=== PATIENT | male | born 1940 | race Caucasian/White ===

== ENCOUNTER 2017-08-20 09:07 | Day surgery (SDC) | payer MEDICARE, BC ==
[~2017-08-20] VITALS: Ht 172.7 cm; Wt 73.6 kg
[2017-08-20] VITALS (9 sets, daily range): BP systolic 133–160; BP diastolic 91–110; PULSE 56–90; RESP 16–20; TEMP 97.6–98; O2SAT 95–99
[2017-08-20] MEDS ORDERED: LACTATED RINGER'S 1000 ML IV PRN (09:30)
[2017-08-20] MEDS ORDERED: SODIUM CHLORID 0.9% 500 ML IV PRN (09:30)
[2017-08-20] MEDS ORDERED: METOPROLOL TARTRATE 25 MG TAB PO PRN (09:30)
[2017-08-20] MEDS ORDERED: POVIDONE IODINE 5% (ANTISEPSIS KIT) 4 APPLICATIONS EACH NARE PRN (09:30)
[2017-08-20] MEDS ORDERED: LORazepam 1 MG TAB SL SCH (09:30)
[2017-08-20] MEDS: SODIUM CHLORID 0.9% 500 ML INJ 500 ML IV SCH (09:30)
[2017-08-20] MEDS ORDERED: INSULIN HUMAN REGULAR 1,000 UNITS/10 ML VIAL SQ PRN (09:30)
[2017-08-20] MEDS ORDERED: CHLORHEXIDINE GLUCONATE 2 % 1 PACK (2 CLOTHS) TOPICAL PRN (09:30)
[2017-08-20] MEDS ORDERED: METO25TA6 PO (09:51)
[2017-08-20] MEDS ORDERED: APIX5TAB PO (09:51)
[2017-08-20] MEDS ORDERED: POTA10TA2 PO (09:51)
[2017-08-20] MEDS ORDERED: TAMS0.4C4 PO (09:51)
[2017-08-20] MEDS ORDERED: ALLO100T PO (09:51)
[2017-08-20] MEDS ORDERED: DULE200A INH (09:51)
[2017-08-20] MEDS ORDERED: DILT-64 PO (09:51)
[2017-08-20] MEDS ORDERED: FURO1TAB62 PO (09:51)
[2017-08-20] MEDS ORDERED: LISI-515 PO (09:51)
[2017-08-20 10:04] LABS: AUTOMATED NEUTROPHIL # 5.5 TH/MM3 (1.8-7.7); BASOPHIL # 0.1 TH/MM3 (0-0.2); BASOPHIL % 0.8 % (0.0-2.0); EOSINOPHIL # 0.1 TH/MM3 (0-0.4); HEMO FLAGS DIFF FINAL; LYMPH % 15.7 % (9.0-44.0); LYMPHOCYTE # 1.1 TH/MM3 (1.0-4.8); MEAN CELL VOLUME 94.6 FL (80.0-100.0); MEAN CORPUSCULAR HEMOGLOBIN 31.2 PG (27.0-34.0); MONO % 6.7 % (0.0-8.0); NEUT % 75.8 % (16.0-70.0); PLATELET COUNT 163 TH/MM3 (150-450); RED BLOOD COUNT 4.76 MIL/MM3 (4.50-5.90); RED CELL DISTRIBUTION WIDTH 14.5 % (11.6-17.2); WHITE BLOOD COUNT 7.3 TH/MM3 (4.0-11.0)
[2017-08-20 10:13] LABS: APTT (PATIENT) 28.3 SEC (24.3-30.1); INTERNATIONAL NORMALIZED RATIO 1.1 RATIO; PROTHROMBIN TIME - PATIENT 12.2 SEC (9.8-11.6)
[2017-08-20 10:29] LABS: BICARBONATE 27.3 MEQ/L (21.0-32.0); POTASSIUM 4.2 MEQ/L (3.5-5.1)
[2017-08-20] MEDS ORDERED: HEPARIN-NS/PF INJ 2,000 ML ONE (10:32)
[2017-08-20] MEDS ORDERED: PROTAMINE SULFATE 50 MG/5 ML VIAL ONE ×2 (10:33→13:38)
[2017-08-20] MEDS ORDERED: HEPARIN SODIUM - IV 10,000 UNITS/10 ML VIAL ONE (10:33)
[2017-08-20] MEDS ORDERED: HEPARIN-D5W 25,000 U/250 ML 250 ML ONE (10:33)
[2017-08-20] MEDS ORDERED: LEVOFLOXACIN 500 MG PREMIX INJ 100 ML IV ONE (10:33)
[2017-08-20] MEDS ORDERED: FUROSEMIDE 40 MG/4 ML VIAL ONE (10:33)
[2017-08-20] MEDS ORDERED: ISOPROTERENOL HCL 1 MG/5 ML AMP ONE (10:36)
--- NOTE | 2017-08-20 13:48 | CATHPROC ---
[employer] HIS Report Study Information Study Number Scheduled Start Study Start [id number] 08/20/2017 Aug 20 2017 9:41AM Referring Institution Admit Source Facility Department 1 Other [facility] - [employer] Installer Physician and Clinical Staff Initial Shan Johnson Oral Surgery Physician Iliana Thorpe,DIRECTOR INTERNAL CONTROL Other Anesthesia, DIRECTOR OF BANDS Other Manas Cortez,RT(R) Recorder Gina Talley BSREvelyn Scrub Monserrat Toussaint,RT(R) TECH2 Procedures Performed Procedure Location (Site) Vessel Name Ablation Procedure Cardioversion ICE CATHETER INSERT RA Atruim Equipment Time Prosthodontist/Owner Description Size Mfg Part Number Used/Scraped NEEDLE, TRANSSEPTAL NRG 98 11:16 [facility]-[id number] Used C1 BIOSTrustlook [id number] 11:17 CATHETER, ACUNAV FR10 ICE FR 10 Used INC. *[id number] [employer]/ EP 11:16 KIT, TRANSDUCER / AFIB [id number] Used PACER [id number] 11:16 [facility] CATHETER, JSN, QUAD BUNDLE FR 5 *[id number] Used BUNDLE [id number] 11:16 [facility] [place] CATHETER, JSN, QUAD BUNDLE FR 5 *[id number] Used BUNDLE [id number] SET, COOL POINT TUBING 11:16 [facility] *[id number] Used BUNDLE BUNDLE COVER, TRANSDUCER CABLE 11:16 [employer] [id number] Used ACUNAV 11:16 CORDIS/PACER SHEATH, FR10 RISHI 11CM FR 10 [id number] Used 11:16 CORDIS/PACER SHEATH, FR9 RISHI 11CM FR 9 [id number] Used [id number] 11:16 [employer] PACK, CCL CUSTOM * Used *[id number] 11:16 MEDLINE PACER MANZANARES, LIMB * 2530 *[id number] Used [id number] 11:16 [employer] MEDICAL SHEATH, FR4.5 PRELUDE 11CM FR 4.5 Used [id number] 11:16 NAMIC TUBING, HIGH PRESSURE 48" 48" Used *[id number] 11:16 NAMIC TUBING, HIGH PRESSURE 48" 48" Used *[id number] 11:16 [employer] BLANKET,WARM AIR CCL * Used *[id number] CATHETER, TACTICATH ABLAT [id number] 11:51 [facility] [employer] Used 65 *[id number] 11:17 [facility] MED[facility] CATHETER, FR7 OPTIMA SPIRAL FR7 41604 *[id number] Used 11:16 [facility] ELECTRODE KIT, SHIVANI X SURFACE * [id number] Used SHEATH, EPS, FR10 FAST CATH 11:17 [facility] FR 10 TRIO [id number] Used TRIO [id number] 11:16 [facility] SHEATH, EPS, FR6 FAST CATH FR 6 Used *[id number] 11:16 [facility] SHEATH, EPS, FR7 FAST CATH FR 7 [id number] Used [id number] 11:16 [facility] MEDICAL SHEATH, EPS, FR8 FAST CATH FR 8 Used *[id number] SHEATH, FR8.5 STEERABLE SM 11:17 [facility] 71CM [id number] Used 71CM [facility] PAD, ELECTROSURGICAL 11:16 * [id number] *[id number] Used SURGICAL GROUNDING (BLUE) History: Current Medications Medication Dosage/Unit Route Frequency Last Date/Time Taken ELIQUIS Beta Joanne Statins (any) History: Allergies Allergy Reaction Penicillin History: Risk Factors Hypertension Dyslipidemia Yes Yes Chronic Lung Disease History: Symptoms/Diagnosis Selection Items Palpitations SOB Labs Hgb (g/dl) Hct (%) RBC (MIL/MM3) WBC (l/cumm) Platelets (thousands) 11.60-17.00 35.00-51.00 4.00-5.90 4.00-11.00 150.00-450.00 14.8 45 4.7 7.3 163 Glucose (mg/dl) BUN (mg/dl) Creatinine (mg/dl) BUN:Creatinine (1:x) 74.00-106.00 7.00-18.00 0.50-1.30 10.00-20.00 77 28 1.7 16.5 Na (meq/l) K (meq/l) Cl (meq/l) CO2 (mmol/L) Ca (mg/dl) 136.00-145.00 3.50-5.10 98.00-107.00 21.00-32.00 8.50-10.10 139 4.2 107 27.3 9.3 INR (PTT:PT) 0.90-1.10 1.1 Medication Medication Total Dose (Bolus/Oral) Medication Total Dosage/Unit 1% XYLOCAINE 40 mL HEPARIN 19078 units PROTAMINE 70 mg Medications (Bolus/Oral) Medication Time Given Dosage/Unit Administered By Reason 1% XYLOCAINE 08/20/2017 11:22:57 AM 20 mL Shan Shin For pain 20 mL 1% XYLOCAINE given in lab by Shan Shin in Left Groin via Subcutaneous. Ordered by Julio Shin. Reason: For pain. 1% XYLOCAINE 08/20/2017 11:25:10 AM 20 mL Shan Shin For pain 20 mL 1% XYLOCAINE given in lab by Shan Shin in Right Groin via Subcutaneous. Ordered by Sophie Shin. Reason: For pain. HEPARIN 08/20/2017 11:37:09 AM 8000 units Shan Shin As per physicians v erbal order 8000 units HEPARIN given in lab by Shan Shin in Right Antecubital via Peripheral IV. Ordered by Shan Martínez. Reason: As per physicians verbal order. HEPARIN 08/20/2017 11:47:26 AM 4000 units Anesthesia, DIRECTOR OF BANDS As per physicians verbal order 4000 units HEPARIN given in lab by Anesthesia, DIRECTOR OF BANDS in Right Antecubital via Peripheral IV. Ordered Shan Hernandez. Reason: As per physicians verbal order. HEPARIN 08/20/2017 11:56:41 AM 3000 units Anesthesia, DIRECTOR OF BANDS As per physicians verbal order 3000 units HEPARIN given in lab by Anesthesia, DIRECTOR OF BANDS in Right Antecubital via Peripheral IV. Ordered Shan Hernandez. Reason: As per physicians verbal order. HEPARIN 08/20/2017 12:08:55 PM 1000 units Anesthesia, DIRECTOR OF BANDS As per physicians verbal order 1000 units HEPARIN given in lab by Anesthesia, DIRECTOR OF BANDS in Right Antecubital via Peripheral IV. Ordered Shan Hernandez. Reason: As per physicians verbal order. HEPARIN 08/20/2017 1:05:18 PM 3000 units Anesthesia, DIRECTOR OF BANDS As per physicians verbal order 3000 units HEPARIN given in lab by Anesthesia, DIRECTOR OF BANDS in Right Antecubital via Peripheral IV. Ordered Shan Hernandez. Reason: As per physicians verbal order. PROTAMINE 08/20/2017 1:27:04 PM 40 mg Anesthesia, DIRECTOR OF BANDS As per physicians ve rbal order 40 mg PROTAMINE given in lab by Anesthesia, DIRECTOR OF BANDS in Right Antecubital via Peripheral IV. Ordered by Shan Martínez. Reason: As per physicians verbal order. PROTAMINE 08/20/2017 1:40:06 PM 30 mg Anesthesia, DIRECTOR OF BANDS As per physicians ve rbal order 30 mg PROTAMINE given in lab by Anesthesia, DIRECTOR OF BANDS in Right Antecubital via Peripheral IV. Ordered by Shan Martínez. Reason: As per physicians verbal order. Medication (Drip) Medication Time Given Dosage/Unit Concentration/Unit Diluent (ml) Solution HEPARIN DRIP 08/20/2017 11:57:43 AM 1000 units/hr 60138 units 250 D5W 1000 units/hr HEPARIN DRIP given in lab by Anesthesia, DIRECTOR OF BANDS via Peripheral IV. Pump/Drip Flow = 10 ml /hr using [place] [address] units in 250 ml. Ordered by Shan Shin. Reason: As per physicians verbal order. ISUPREL 08/20/2017 1:11:23 PM 10 mcg/min 1 mg 250 NaCl .9 10 mcg/min ISUPREL given in lab by Anesthesia, DIRECTOR OF BANDS in Right Antecubital via Peripheral IV. Pump/Drip Flow = 150 ml/hr using NaCl .9 with a concentration of 1 mg in 250 ml. Ordered by Shan Shin. Reason: As per physicians verbal order. IV Solutions 08/20/2017 10:36:19 AM 0 mL (IV) NaCl .9 IV Solutions given in lab by Gina Talley BSRN in Left Antecubital via Peripheral IV. Pump/Drip Flow = 50 ml/hr using NaCl .9. Ordered by Shan Shin. Reason: As per physicians verbal order. IV Solutions 08/20/2017 10:36:55 AM 0 mL (IV) NaCl .9 IV Solutions given in lab by Gina Talley BSRN in Left Antecubital via Peripheral IV. Pump/Drip Flow = 50 ml/hr using NaCl .9. Ordered by Shan Shin. Reason: As per physicians verbal order. LEVAQUIN 08/20/2017 10:40:00 AM 100 mL/hr 500 100 NaCl .9 100 mL/hr LEVAQUIN given in lab by Gina Talley BSRN in Right Antecubital via Peripheral IV. Pum p/Drip Flow = 0 ml/hr using NaCl .9 with a concentration of 500 in 100 ml. Ordered by Kip, Hanscy. Reason: As per physicians verbal order. Initial Case Assessment Cardiovascular HR NIBP 99 154/111 Edema Present Skin color Skin None Normal Warm Dry Neurological State Oriented to time-place- Alert Moves all extremities person Respiration - General Respiration Rate SpO2 (%) (B/min) 18 100 Final Case Assessment Cardiovascular HR NIBP Chest Pain 82 117/67 0 Edema Present Skin color Skin None Normal Warm Dry Neurological State Oriented to time-place- Alert Moves all extremities person Respiration - General Respiration Rate SpO2 (%) (B/min) 20 97 Chronological Log Time Study Chronological Log 10:22:27 Patient arrived via Bed. 10:22:30 Patient Name, D.O.B, / Armband Verified By R.N. 10:22:32 Consent signed by the physician and the patient and verified by the [employer] staff. 10:22:34 Pre-op and post- op instructions given; patient acknowledges understanding of instructions. 10:22:37 Verbal Stimulation=2 Physical Stimulation=2 Airway=2 Respiration=2 TOTAL=10. (0=absent, 1=l imited, 2=present) 10:22:49 Anesthesia at bedside. Assumes care of patient. Ford DIRECTOR OF BANDS 10:23:08 Presedation assessment performed by [employer] F[employer] Installer RN. 10:23:11 Immediate Presedation assesment performed by physician. 10:23:13 Patient has been NPO for More than 6Hrs. 10:23:15 Skin Breakdown- none 10:23:23 Patient Warmer Placed on the Table. 10:23:28 Disposable Defibrillator Pads Placed On Patient. 10:23:31 Francis Prominences Protected 10:29:28 A # 20 IV was noted in the Antecubital (left). Grade = ~GRADE~ 10:29:28 A # 20 IV was noted in the Antecubital (right). Grade = ~GRADE~ 10:29:30 History and physical on the chart or being dictated. Assessment: Initial Case, HR=99 BPM, EWLZ=998/111 mmhg, Edema=None, Color=Normal, Skin = Warm, Dry 10:35:33 Neurological: State=Alert, Ox3, FERNANDES Respiration: Resp=18 B/min, UfL9=689 % 10:36:02 Table restraints applied according to hospital policy 10:36:06 Right groin prepped with 2% chlorhexidine, and with a 3 min. waiting time. 10:36:09 Left groin prepped with 2% chlorhexidine, and with a 3 min. waiting time. IV Solutions given in lab by Gina Talley BSRN in Left Antecubital via Peripheral IV. Pump /Drip Flow = 50 ml/hr 10:36:19 using NaCl .9. Ordered by Shan Shin. Reason: As per physicians verbal order. IV Solutions given in lab by Gina Talley BSRN in Left Antecubital via Peripheral IV. Pump /Drip Flow = 50 ml/hr 10:36:55 using NaCl .9. Ordered by Shan Shin. Reason: As per physicians verbal order. 100 mL/hr LEVAQUIN given in lab by Gina Talley BSRN in Right Antecubital via Peripheral I V. Pump/Drip Flow = 10:40:00 0 ml/hr using NaCl .9 with a concentration of 500 in 100 ml. Ordered by Shan Shin. Reas on: As per physicians verbal order. 10:48:45 14 fr lambert inserted w/o difficulty by MR. Clear yellow urine obtained. 10:59:09 Reference ECG taken Time Out. Correct patient, procedure, procedure equipment, site and side verified with physicia n present. Time 11:18:30 concurred by MD, individual staff and DIRECTOR OF BANDS. Time Out #2 - Consents verified, patient in correct position, all results are labled and displa yed, safety precautions 11:18:45 taken, antibiotics administered. Time out concurred by MD, individual staff and DIRECTOR OF BANDS in procedu re 11:18:59 Case Start 11:19:36 LASHAY begun at bedside. 11:22:31 LASHAY completed. 20 mL 1% XYLOCAINE given in lab by Shan Shin in Left Groin via Subcutaneous. Ordered by Shan Fisher. 11:22:57 Reason: For pain. 11:23:17 Vascular access was obtained in the Fem Vein (left). 11:23:25 Vascular access was obtained in the Fem Vein (left). 11:23:26 Vascular access was obtained in the Fem Vein (left). 11:23:33 Vascular access was obtained in the Fem Art (left). 11:23:51 A SHEATH, EPS, FR6 FAST CATH FR 6 was advanced into the Fem Vein (left) using the Percutane ous technique. 11:24:09 A SHEATH, EPS, FR7 FAST CATH FR 7 was advanced into the Fem Vein (left) using the Percutane ous technique. 11:24:20 A SHEATH, FR10 RISHI 11CM FR 10 was advanced into the Fem Vein (left) using the Percutaneo us technique. 11:24:36 A SHEATH, FR4.5 PRELUDE 11CM FR 4.5 was advanced into the Fem Art (left) using the Percutan eous technique. 20 mL 1% XYLOCAINE given in lab by Shan Shin in Right Groin via Subcutaneous. Ordered by Shan Wei. 11:25:10 Reason: For pain. 11:25:23 Vascular access was obtained in the Fem Vein (right). 11:25:32 A SHEATH, EPS, FR8 FAST CATH FR 8 was advanced into the Fem Vein (right) using the Percutan eous technique. A CATHETER, JSN, QUAD BUNDLE FR 5 was advanced vis Fem Vein (left) and placed in the HIS. Place ment was 11:25:47 visually confirmed under fluoroscopy. A CATHETER, JSN, QUAD BUNDLE FR 5 was advanced vis Fem Vein (left) and placed in the CS. Placem ent was visually 11:26:09 confirmed under fluoroscopy. 11:31:44 CATHETER, ACUNAV FR10 ICE FR 10 Was Postioned. A SHEATH, FR8.5 STEERABLE SM 71CM 71CM was exchanged in the Fem Vein (right). This was necessar y in order for 11:36:34 catheter support. 8000 units HEPARIN given in lab by Shan Shin in Right Antecubital via Peripheral IV. Ordere d by Shan Shin. 11:37:09 Reason: As per physicians verbal order. 11:37:34 Boswell needle inserted. 11:38:39 Transseptal. 11:39:03 Boswell needle removed. A CATHETER, FR7 OPTIMA SPIRAL FR7 was advanced vis Fem Vein (right) and placed in the LA. Place ment was 11:40:28 visually confirmed under fluoroscopy. 11:42:10 Activated Clotting Time Drawn 11:43:55 Mapping in progress. 11:46:55 ACT (Normal Range 90-180) = 274 4000 units HEPARIN given in lab by Anesthesia, DIRECTOR OF BANDS in Right Antecubital via Peripheral IV. Ord ered by Shan Shin. 11:47:26 Reason: As per physicians verbal order. 11:49:09 Mapping completed. [place] catheter removed. A CATHETER, TACTICATH ABLAT 65 was advanced vis Fem Vein (right) and placed in the LA. Placemen t was visually 11:50:40 confirmed under fluoroscopy. 11:51:50 Activated Clotting Time Drawn 11:56:16 ACT (Normal Range 90-180) = 296 3000 units HEPARIN given in lab by Anesthesia, DIRECTOR OF BANDS in Right Antecubital via Peripheral IV. Ord ered by Shan Shin. 11:56:41 Reason: As per physicians verbal order. 11:57:26 Ablation in progress. 1000 units/hr HEPARIN DRIP given in lab by Anesthesia, DIRECTOR OF BANDS via Peripheral IV. Pump/Drip Flow = 10 ml/hr using 11:57:43 D5[place] [address] units in 250 ml. Ordered by Shan Shin. Reason: As per nicci portillo verbal order. 12:01:43 Activated Clotting Time Drawn 12:08:45 ACT (Normal Range 90-180) = 341 1000 units HEPARIN given in lab by Anesthesia, DIRECTOR OF BANDS in Right Antecubital via Peripheral IV. Ord ered by Shan Shin. 12:08:55 Reason: As per physicians verbal order. 12:14:02 Activated Clotting Time Drawn 12:21:10 ACT (Normal Range 90-180) = 333 12:30:49 Activated Clotting Time Drawn 12:37:56 ACT (Normal Range 90-180) = 354 12:53:08 Abl Catheter was removed A CATHETER, FR7 OPTIMA SPIRAL FR7 was advanced vis Fem Vein (right) and placed in the LA. Place ment was 12:53:21 visually confirmed under fluoroscopy. 12:55:26 ECG rhythm of AF noted. Patient cardioverted at 200 joules. Success synchronized 12:57:45 Activated Clotting Time Drawn 12:57:53 [place] catheter removed. A CATHETER, TACTICATH ABLAT 65 was advanced vis Fem Vein (right) and placed in the LA. Placemen t was visually 12:58:06 confirmed under fluoroscopy. 12:58:23 Ablation continues. 13:04:08 ACT (Normal Range 90-180) = 315 3000 units HEPARIN given in lab by Anesthesia, DIRECTOR OF BANDS in Right Antecubital via Peripheral IV. Ord ered by Shan Shin. 13:05:18 Reason: As per physicians verbal order. 13:07:00 Ablation completed. 13:08:58 ECG rhythm of AF noted. Patient cardioverted at 200 joules. Success synchronized 13:10:35 Activated Clotting Time Drawn 10 mcg/min ISUPREL given in lab by Anesthesia, DIRECTOR OF BANDS in Right Antecubital via Peripheral IV. Pum p/Drip Flow = 150 13:11:23 ml/hr using NaCl .9 with a concentration of 1 mg in 250 ml. Ordered by Shan Shin. Reaso n: As per physicians verbal order. 13:17:20 ACT (Normal Range 90-180) = 423 13:18:27 Heparin gtt turned off. 13:23:22 Isuprel gtt turned off. 13:24:16 Ablation completed. 13:24:52 Ablation procedure performed: AFIB. 13:25:02 EP Procedure was performed. 13:25:13 Catheter(s) removed without difficulty A SHEATH, FR9 RISHI 11CM FR 9 was exchanged in the Fem Vein (right). This was necessary in or joana to achieve 13:26:41 vascular hemostasis. 40 mg PROTAMINE given in lab by Anesthesia, DIRECTOR OF BANDS in Right Antecubital via Peripheral IV. Order ed by Shan Shin. 13:27:04 Reason: As per physicians verbal order. 13:27:[address] and will be attached to NS infusing at kvo rate. 13:28:34 PACU called. Spoke to Afsaneh. Assessment: Final Case, HR=82 BPM, FUHT=051/67 mmhg, Chest Pain=0, Edema=None, Color=Normal, S kin = Warm, Dry 13:29:10 Neurological: State=Alert, Ox3, FERNANDES Respiration: Resp=20 B/min, SpO2=97 % 13:29:36 Sterile dressings applied to sites 13:29:50 No case complications noted. 13:29:52 Cine recording checked. 13:29:56 Bedside Report will be given. 13:29:59 Defibrillator and ground pads removed. Skin intact. 13:34:24 Activated Clotting Time Drawn 13:39:09 ACT (Normal Range 90-180) = 266 13:40:00 Case End 30 mg PROTAMINE given in lab by Anesthesia, DIRECTOR OF BANDS in Right Antecubital via Peripheral IV. Order ed by Shan Shin. 13:40:06 Reason: As per physicians verbal order. 13:42:26 Activated Clotting Time Drawn 13:46:51 ACT (Normal Range 90-180) = 151 13:47:19 Sheaths will be pulled in PACU. 13:55:00 Patient moved to stretcher and transported to PACU in stable condition. End Study - Contrast Media Used In Study Contrast Total Opened (mL) Total Used (mL) Total Wasted (mL) Unspecified 0 0 0 End Study - Maximum Contrast Load Max Contrast Load (mL) 216.4 End Study - Radiation Exposure Fluoro Time (minutes) 2.0 End Study - Patient Disposition Complications Transferred To Interventional Outcome No Telemetry Bed successful
[2017-08-20] MEDS ORDERED: oxyCODONE/ACETAMINOPHEN 5 MG/325 MG TAB PO PRN ×2 (14:00)
[2017-08-20] MEDS ORDERED: ONDANSETRON HCL 4 MG/2 ML VIAL IV PUSH PRN (14:00)
[2017-08-20] MEDS ORDERED: LORazepam 2 MG/ML VIAL IV PUSH PRN (14:00)
[2017-08-20] MEDS ORDERED: ATROPINE SULFATE 1 MG/ML VIAL IV PUSH PRN (14:00)
[2017-08-20] MEDS ORDERED: SODIUM CHLOR 0.9% 250 ML INJ 250 ML IV PRN (14:00)
[2017-08-20] MEDS ORDERED: METOCLOPRAMIDE HCL 10 MG/2 ML VIAL IV PUSH PRN (14:00)
[2017-08-20] MEDS ORDERED: LIDOCAINE HCL 1% 50 ML VIAL INFIL PRN (14:00)
[2017-08-20] MEDS ORDERED: BACITRACIN OINT 0.9 GM PKT TOP ONE (14:00)
[2017-08-20] MEDS ORDERED: DO NOT ADM ANY ANTICOAGULANT DRUGS PRN (14:05)
[2017-08-20] MEDS ORDERED: NEOSTIGMINE 3 MG/3 ML SYR IV ONE (14:21)
[2017-08-20] MEDS ORDERED: PHENYLEPH/NS 1000 MCG/10 ML SYR IV ONE (14:21)
[2017-08-20] MEDS ORDERED: ROCURONIUM INJ 50 MG/5 ML SYRINGE IV PUSH ONE (14:21)
[2017-08-20] MEDS ORDERED: GLYCOPYRROLATE 1 MG/5 ML SYRINGE IV PUSH ONE (14:21)
[2017-08-20] MEDS ORDERED: PROPOFOL 200 MG/20 ML AMP IV ONE (14:21)
[2017-08-20] MEDS ORDERED: ONDANSETRON HCL 4 MG/2 ML VIAL IV PUSH ONE (14:21)
[2017-08-20] MEDS ORDERED: LIDOCAINE HCL 1% PF 5 ML AMPULE OTHER ONE (14:21)
--- NOTE | 2017-08-20 14:21 | PD.CARD ---
Atrial Fibrillation Ablation PROCEDURE DATE: Aug 20, 2017 PROCEDURES PERFORMED: 1. Electrophysiology study on Isuprel infusion 2. CS cannulation 3. 3-D mapping 4. Transseptal approach 5. Right and left heart catheterization 6. Intracardiac echo 7. Radiofrequency ablation of atrial fibrillation 8. Pulmonary vein isolation 9. Posterior wall ablation 10. Mitral valve isolation 11. Mitral line creation 12. Left atrial tachycardia ablation 13. Roof line creation 14. Floor line creation 15. Anterior wall. ablation 16. Cardioversion INDICATIONS FOR THE PROCEDURE Mr. Fong is a 77-year-old male with atrial fibrillation, very symptomatic , on anticoagulation, admitted for electrophysiology study and ablation. The risks, the nature and the benefits of the procedure were clearly stated to him. The risks include pneumothorax, cardiac perforation, stroke, need for open heart surgery and even . The patient understood and agreed to proceed. DESCRIPTION OF THE PROCEDURE IN DETAIL As written informed consent was obtained prior to esophageal echocardiogram, the patient was kept on the table where he was prepped and draped in the usual sterile fashion. Conscious sedation was initiated and maintained throughout the procedure by the anesthesiologist. Once sedation was verified, the right and left inguinal areas were anesthetized with 2% Xylocaine. Using modified Seldinger technique, the left femoral vein was cannulated on three occasions, three guidewires were advanced. Over the wire a 6, 7 and a 10-Tristanian Hemaquet were advanced. Then the left femoral artery was cannulated on one occasion, one guidewire was advanced. Over the wire a 4-Tristanian Hemaquet was advanced. Then the right femoral vein was cannulated on one occasion, one guidewire was advanced. Over the wire a 8-Tristanian Hemaquet was advanced. Then under fluoroscopic guidance through the 6 and 7-Tristanian Hemaquet, two 5-Tristanian Zaida curved quadripolar electrophysiology catheters were advanced and placed around the His as well as coronary sinus. Basic interval was measured. The patient was in atrial fibrillation. Through the 10-Tristanian Hemaquet, a CordAyondoter AcuNav intracardiac echo catheter was advanced and placed at the right atrium. Multiple view was obtained. There is no pericardial effusion, pulmonary vein was seen, atrial septal was visualized. Then the 8-Tristanian Hemaquet in the right femoral vein was exchanged for Agilis transseptal sheath that was placed all the way to the superior vena cava. Through the sheath a Olivia needle was advanced, then the sheath, the dilator and the needle were progressed until foci engaged. Once engaged, the needle was advanced. RF was delivered for 2 seconds. I was able to cross into the left atrium. Once the needle crossed, the dilator was advanced. Once the dilator crossed, the sheath was advanced. Once the sheath crossed, the dilator and the needle were removed. At this point I did flush the system and fluid movement was seen in the left atrium the indicates the sheath is in good position. The patient already received 10,000 units of heparin. The goal is to keep an ACT around 350 during ablation. Then through the sheath a [facility]. Alex 20 pulse circumferential catheter was advanced. Using [employer] endocardial solution mapping system, a two-dimensional configuration of the left atrium was obtained. Points were taken at the left superior and inferior veins, right superior and inferior veins, mitral valve, and appendages. Then through the sheath a St. Alex TactiCath 65cm 3.5mm irrigated tipped mapping and radiofrequency ablation catheter was advanced. Esophageal probe was placed temperature monitoring during ablation. When it increased to 0.5 degrees Celsius above baseline, I moved to a different area of the atrium. First I did isolate the left superior and inferior vein. I did make a big [place] around the veins. Posterior was ablated. Then a roof line was created, a floor line was created, a mitral line was isolated, then the mitral valve was isolated. At that point the patient was in left atrial tachycardia. I did create a line from the floor to the roof area, passing by the left atrial appendage. Then the right superior and inferior veins were isolated. I did remap the atrium. There is no significant signal in the atrium. At this point I decided to proceed with cardioversion. A 200 sync biphasic joule was delivered that converted the patient into sinus rhythm.patient back into left atrial tachycardia. I did proceed with anterior floor ablation. Then coronary sinus was isolated. I did cardioverted again the patient into sinus rhythm. At that point I did advance the circumferential catheter again into the vein. There was no signal into the vein, pacing from the vein showed no conduction to the atrium. Isuprel infusion was initiated at 10 mcg for over 10 minutes. No tachyarrhythmia was induced, post Isuprel no tachyarrhythmia was induced. At that point the procedure was complete. All catheters were removed, atrial septal sheath was exchanged for 9-Tristanian Hemaquet, intracardiac echo showed no pericardial effusion. There is still good flow in the pulmonary vein. The patient is going to be transferred to the recovery room. No incident report. The patient tolerated the procedure. Blood loss was minimal. FINDINGS 1. Electrocardiogram: At baseline the patient was in atrial fibrillation, post procedure the patient was in sinus rhythm. 2. Basic interval: Base cycle length was around 530. Post ablation she was around 140 milliseconds. 3. Tachyarrhythmia: Atrial fibrillation was mapped and ablated. Atrial tachycardia was ablated. The ablation was successful. CONCLUSION Successful electrophysiology study, mapping, radiofrequency ablation of atrial fibrillation, left atrial tachycardia, pulmonary vein isolation, posterior ablation, mitral valve isolation, mitral line creation, roof line creation, floor line creation, left atrial tachycardia, coronary sinus isolation and cardioversion. COMMENTS AND RECOMMENDATIONS The patient is going to be transferred to the telemetry unit. Will be observed and when stable can be discharged home. Shan Shin MD Aug 20, 2017 14:21
[2017-08-20] MEDS ORDERED: TAMSULOSIN HCL 0.4 MG CAP PO SCH (21:00)
[2017-08-20] MEDS ORDERED: NON-FORMULARY DRUG (Mometasone-Formoterol 120 Act Inh (Dulera 120 Act Inh) 2 PUFF) INH SCH (21:00)
[2017-08-20] MEDS: APIXABAN 5 MG TABLET PO SCH (21:17)
[2017-08-21] VITALS (11 sets, daily range): BP systolic 133–139; BP diastolic 98–101; PULSE 62–91; RESP 18–20; TEMP 98.2; O2SAT 99–100
[2017-08-21] MEDS: SODIUM CHLORID 0.9% 500 ML INJ 500 ML IV SCH (02:10)
[2017-08-21 06:31] LABS: APTT (PATIENT) 28.8 SEC (24.3-30.1); INTERNATIONAL NORMALIZED RATIO 1.2 RATIO
--- NOTE | 2017-08-21 07:59 | PD.CARD.PN ---
Subjective Subjective Remarks Feels better. Objective Medications Current Medications Medications (Trade) Dose Ordered Sig/Eunice Route Start Time Stop Time Status Last Admin Lactated Ringer's 1,000 ml @ 30 mls/hr Q24H PRN IV 08/20/17 09:30 08/23/17 09:29 Sodium Chloride 500 ml @ 30 mls/hr [id number] PRN IV 08/20/17 09:30 08/23/17 09:29 (Lopressor) 25 mg [employer] PRN PO 08/20/17 09:30 08/23/17 09:29 (Betadine 5% Antisepsis Kit) 1 applic [facility] PRN EACH NARE 08/20/17 09:30 08/23/17 09:29 (Chlorhexidine 2% Cloth) 3 pack [facility] PRN TOPICAL 08/20/17 09:30 08/23/17 09:29 (NovoLIN R INJ) See Protocol Table ... [facility] PRN SQ 08/20/17 09:30 08/23/17 09:29 Sodium Chloride 500 ml @ 30 mls/hr [id number] IV 08/20/17 09:30 (Ativan) 1 mg [employer] SL 08/20/17 09:30 08/23/17 09:29 (Percocet 5-325 Mg) 1 tab Q4H PRN PO 08/20/17 14:00 (Percocet 5-325 Mg) 2 tab Q4H PRN PO 08/20/17 14:00 (Ativan Inj) 0.5 mg UNSCH PRN IV PUSH 08/20/17 14:00 08/21/17 13:59 (Atropine Inj) 0.5 mg UNSCH PRN IV PUSH 08/20/17 14:00 Sodium Chloride 250 ml @ 500 mls/hr ONCE PRN IV 08/20/17 14:00 08/21/17 13:59 (Reglan Inj) 5 mg Q4H PRN IV PUSH 08/20/17 14:00 (Zofran Inj) 4 mg Q4H PRN IV PUSH 08/20/17 14:00 (Xylocaine 1% Inj (50 ml)) 10 ml UNSCH PRN INFIL 08/20/17 14:00 08/21/17 13:59 (Zyloprim) 100 mg DAILY PO 08/21/17 09:00 (Eliquis) 5 mg BID PO 08/20/17 21:00 08/20/17 21:17 (Cardizem Cd) 240 mg DAILY PO 08/21/17 09:00 (Lasix) 20 mg DAILY PO 08/21/17 09:00 (Prinivil) 20 mg DAILY PO 08/21/17 09:00 (KCl) 10 meq DAILY PO 08/21/17 09:00 (Flomax) 0.4 mg HS PO 08/20/17 21:00 08/20/17 21:16 Non-Formulary Medication 2 puff BID INH 08/20/17 21:00 Miscellaneous Information ALL NURSING DEPARTME... UNSCH PRN .XX 08/20/17 14:05 08/21/17 14:04 Vital Signs / I&O Vital Signs Date Time Temp Pulse Resp B/P (MAP) Pulse Ox O2 Delivery O2 Flow Rate FiO2 08/21/17 06:00 79 08/21/17 05:03 91 08/21/17 04:00 87 08/21/17 03:00 98.2 79 18 133/98 (110) 100 08/21/17 03:00 74 08/21/17 02:00 72 08/21/17 01:00 71 08/21/17 00:00 73 08/20/17 23:00 58 08/20/17 23:00 98.0 74 16 133/99 (110) 95 08/20/17 22:00 56 08/20/17 21:00 60 08/20/17 20:00 58 08/20/17 19:00 97.7 57 16 134/91 (105) 95 08/20/17 19:00 58 08/20/17 18:00 62 08/20/17 17:00 60 08/20/17 16:30 97.6 61 20 135/96 (109) 99 08/20/17 16:30 60 08/20/17 16:10 97.5 61 15 125/85 (98) 99 Nasal Cannula 3 08/20/17 16:00 60 17 128/77 (94) 99 Nasal Cannula 3 08/20/17 15:30 59 15 130/87 (101) 99 Nasal Cannula 3 08/20/17 15:15 59 16 131/88 (102) 99 Nasal Cannula 3 08/20/17 15:00 58 16 125/87 (100) 99 Nasal Cannula 3 08/20/17 14:45 58 16 127/88 (101) 100 Nasal Cannula 3 08/20/17 14:30 58 15 127/88 (101) 100 Nasal Cannula 3 08/20/17 14:11 97.8 58 15 130/89 (103) 100 Nasal Cannula 3 08/20/17 09:30 97.6 90 17 160/110 (127) 98 I/O 08/20/17 08/20/17 08/20/17 08/21/17 08/21/17 08/21/17 07:00 15:00 23:00 07:00 15:00 23:00 Intake Total 480 ml 480 ml Output Total 250 ml 200 ml Balance 230 ml 280 ml Intake Oral 480 ml 480 ml Output Urine Total 250 ml 200 ml Physical Exam GENERAL: Well-nourished, well-developed patient. SKIN: Warm and dry. Groin site soft without bruising, bleeding or drainage. HEAD: Normocephalic. EYES: No scleral icterus. No injection or drainage. NECK: Supple, trachea midline. No JVD or lymphadenopathy. CARDIOVASCULAR: Regular rate and rhythm without murmurs, gallops, or rubs. RESPIRATORY: Breath sounds equal bilaterally. No accessory muscle use. GASTROINTESTINAL: Abdomen soft, non-tender, nondistended. EXTREMITIES: No cyanosis, or edema. NEUROLOGICAL: Awake, alert, and oriented x 3. Non-focal. Laboratory Laboratory Tests Test 08/20/17 09:35 08/21/17 05:45 White Blood Count 7.3 TH/MM3 Red Blood Count 4.76 MIL/MM3 Hemoglobin 14.8 GM/DL Hematocrit 45.0 % Mean Corpuscular Volume 94.6 FL Mean Corpuscular Hemoglobin 31.2 PG Mean Corpuscular Hemoglobin Concent 33.0 % Red Cell Distribution Width 14.5 % Platelet Count 163 TH/MM3 Mean Platelet Volume 9.8 FL Neutrophils (%) (Auto) 75.8 % Lymphocytes (%) (Auto) 15.7 % Monocytes (%) (Auto) 6.7 % Eosinophils (%) (Auto) 1.0 % Basophils (%) (Auto) 0.8 % Neutrophils # (Auto) 5.5 TH/MM3 Lymphocytes # (Auto) 1.1 TH/MM3 Monocytes # (Auto) 0.5 TH/MM3 Eosinophils # (Auto) 0.1 TH/MM3 Basophils # (Auto) 0.1 TH/MM3 CBC Comment DIFF FINAL Differential Comment Prothrombin Time 12.2 SEC 13.0 SEC Prothromb Time International Ratio 1.1 RATIO 1.2 RATIO Activated Partial Thromboplast Time 28.3 SEC 28.8 SEC Blood Urea Nitrogen 28 MG/DL Creatinine 1.74 MG/DL Random Glucose 77 MG/DL Calcium Level 9.3 MG/DL Sodium Level 139 MEQ/L Potassium Level 4.2 MEQ/L Chloride Level 107 MEQ/L Carbon Dioxide Level 27.3 MEQ/L Anion Gap 5 MEQ/L Estimat Glomerular Filtration Rate 38 ML/MIN Assessment and Plan Problem List: (1) Atrial fibrillation ICD Codes: I48.91 - Unspecified atrial fibrillation Plan: Sinus rhythm status post A. fib ablation. (2) S/P ablation of atrial fibrillation ICD Codes: Z98.890 - Other specified postprocedural states; Z86.79 - Personal history of other diseases of the circulatory system Plan: Groin sites soft, no bruising or bleeding. Normal sinus rhythm on telemetry. Discharge home, continue eliquis. Follow-up with Dr. GOODSON in 3 weeks per my discussion with him. Problem Qualifiers (1) Atrial fibrillation: Qualified Codes: I48.0 - Paroxysmal atrial fibrillation Jes Pagan Aug 21, 2017 07:59
[2017-08-21] MEDS ORDERED: FUROSEMIDE 20 MG TAB PO SCH (09:00)
[2017-08-21] MEDS ORDERED: POTASSIUM CHLORIDE 10 MEQ CONTROLLED RELEASE TAB PO SCH (09:00)
[2017-08-21] MEDS ORDERED: DILTIAZEM-CD 240 MG CAP ER PO SCH (09:00)
[2017-08-21] MEDS ORDERED: LISINOPRIL 20 MG TAB PO SCH (09:00)
[2017-08-21] MEDS ORDERED: ALLOPURINOL 100 MG TAB PO SCH (09:00)
[2017-08-21] MEDS: APIXABAN 5 MG TABLET PO SCH (09:08)
--- NOTE | 2017-08-21 14:46 | EKG ---
Date Performed: 08/21/2017 Time Performed: 03:47:40 PTAGE: 77 years EKG: Sinus rhythm with PAC(s) with borderline 1st degree A-V block Left axis deviation Possible septal infarct - age u ndetermined Abnormal ECG PREVIOUS TRACING : 08/20/2017 16.16 Compared to prior tracing no significant change DOCTOR: Leonard Joyner Interpretating Date/Time 08/21/2017 14:45:35
--- NOTE | 2017-08-21 15:15 | EKG ---
Date Performed: 08/20/2017 Time Performed: 16:16:15 PTAGE: 77 years EKG: Sinus rhythm LEFT ATRIAL ENLARGEMENT MARKED LEFT AXIS DEVIATION SEPTAL MYOCARDIAL INFARCTION , OLD ABNORMAL ECG PREVIOUS TRACING : 08/20/2017 09.57 Compared to the previous tracing a fib no longer present DOCTOR: Leonard Joyner Interpretating Date/Time 08/21/2017 15:13:57
--- NOTE | 2017-08-21 15:44 | EKG ---
Date Performed: 08/20/2017 Time Performed: 09:57:12 PTAGE: 77 years EKG: Atrial fibrillation. Left axis deviation Possible septal infarct - age undetermined Abnorma l ECG NO PREVIOUS TRACING DOCTOR: Leonard Joyner Interpretating Date/Time 08/21/2017 15:42:48
== END 2017-08-21 13:36 | disposition home or self-care (01) ==
LOC: HDIC 09:07 → HDOC 09:07 → HCIN 16:56 → HDOC 08-21 13:36
PROVIDERS: ATTEND Internal Medicine Interventional Cardiology
DX: I48.2 Chronic atrial fibrillation (principal)
CPT/HCPCS: 00537; 80048; 85002; 85025; 85610; 85730; 86077; 86850; 86870; 86900; 86901; 86902; 86920; 86922; 92960; 93005; 93312; 93320; 93325; 93613; 93623; 93656; 93662; C1730; C1731; C1732; C1759; C1766; C2630; J1644; J1940; J1956; J2370; J2405; J2710; J2720; J3010

== ENCOUNTER 2017-09-20 11:06 | Day surgery (SDC) | payer MEDICARE, BC ==
[~2017-09-20 11:06] MED LIST: ALLO100T PO; APIX5TAB PO; DILT-64 PO; DULE200A INH; FURO1TAB62 PO; LISI-515 PO; POTA10TA2 PO; TAMS0.4C4 PO
--- NOTE | 2017-09-22 21:16 | EKG ---
Date Performed: 09/20/2017 Time Performed: 11:31:14 PTAGE: 77 years EKG: Sinus rhythm with 1st degree A-V block Left axis deviation Possible anterior infarct - age undetermined Abnormal ECG PREVIOUS TRACING : 08/21/2017 03.47 DOCTOR: Shan Shin Interpretating Date/Time 09/22/2017 21:04:23
== END 2017-09-20 13:53 | disposition home or self-care (01) ==
LOC: HDOC 11:06 → HDIC 11:07 → HDOC 13:53
PROVIDERS: ATTEND Internal Medicine Interventional Cardiology
DX: I48.91 Unspecified atrial fibrillation (principal); Z53.9 Procedure and treatment not carried out, unspecified reason
CPT/HCPCS: 93005; G0463; 99211

== ENCOUNTER 2018-11-09 14:43 | Inpatient (IN) ==
--- NOTE | 2018-11-09 15:36 | ED ---
HPI General Chief complaint: Medical Clearance Stated complaint: swollen lower extremities complaint Time Seen by Provider: 11/09/18 15:25 Source: patient Mode of arrival: ambulatory Limitations: no limitations History of Present Illness HPI narrative: 78-year-old male patient with history of atrial fibrillation, chronic venous stasis, hypertension, presents to the ER today because he states that he has noticed increasing worsening of his leg swelling, abdominal swelling , and states that he had been evaluated at [facility] a few weeks ago for this, had CAT scanning and workup but did not find an obvious cause. He states that over the last few days his scrotal area and groin area has become swollen as well and he is concerned about this. He states his fairly uncomfortable and painful. He denies any fevers, vomiting, or any other issues. He denies any chest pains, trouble breathing. Chronic leg edema Modifying Factors: None Associated Signs & Symptoms: Increasing leg, scrotal, and abdominal swelling. Risk Factors: Chronic leg edema Related Data Home Medications Medication Instructions Recorded Confirmed allopurinol 100 mg PO DAILY 08/07/18 11/09/18 apixaban [Eliquis] 5 mg PO BID 08/07/18 11/09/18 budesonide-formoterol [Symbicort] 2 puff INHALATION BID 08/07/18 11/09/18 furosemide [Lasix] 20 mg PO DAILY PRN 08/07/18 11/09/18 lisinopril 20 mg PO DAILY 08/07/18 11/09/18 potassium chloride 10 meq PO DAILY PRN 08/07/18 11/09/18 tamsulosin 0.4 mg PO DAILY 08/07/18 11/09/18 Allergies Allergy/AdvReac Type Severity Reaction Status Date / Time Penicillins Allergy Intermediate Rash Verified 11/09/18 15:07 Review of Systems ROS: all other systems reviewed are negative [facility] Medical History Medical History Asthma (Acute) Atrial fibrillation (Acute) Colon cancer (Acute) HTN (hypertension) (Acute) Varicose veins of bilateral lower extremities with pain (Acute) Surgical History Surgical History S/P ablation of atrial fibrillation (Acute) Social History Social History Substance History: No History of Abuse Smoking Status: Former smoker How Often Do You Have a Drink Containing Alcohol: Monthly or less Recent Travel in [facility] within the Last 8 Weeks: No Recent Out of Country Travel within the Last 8 Weeks: No Immunization History Tetanus Immunization: Unsure Exam Narrative Exam Narrative: GENERAL: Well-developed elderly male patient currently in moderate distress. Awake and oriented x3. SKIN: Focused skin assessment warm/dry. HEAD: Atraumatic. Normocephalic. EYES: Pupils equal and round. No scleral icterus. No injection or drainage. ENT: No nasal bleeding or discharge. Mucous membranes pink and moist. NECK: Trachea midline. No JVD. CARDIOVASCULAR: Regular rate and rhythm. No murmur appreciated. RESPIRATORY: No accessory muscle use. Clear to auscultation. Breath sounds equal bilaterally. GASTROINTESTINAL: Abdomen soft, non-tender, mildly distended. Hepatic and splenic margins not palpable. GENITOURINARY: Circumcised. There is intense edema, induration, and mild erythema of the scrotal area and groin area as well as the pubic pubic area. MUSCULOSKELETAL: No obvious deformities. No clubbing. No cyanosis. Bilateral pitting edema of the legs. NEUROLOGICAL: Awake and alert. No obvious cranial nerve deficits. Motor grossly within normal limits. Normal speech. PSYCHIATRIC: Appropriate mood and affect; insight and judgment normal. Course Initial Documented Vital Signs Temperature 97.4 F L 11/09/18 15:05 Pulse Rate 89 11/09/18 15:05 Respiratory Rate 20 11/09/18 15:05 Blood Pressure 134/90 11/09/18 15:05 Pulse Oximetry 99 11/09/18 15:05 Last Documented Vital Signs Temperature 97.4 F L 11/09/18 15:05 Pulse Rate 88 11/09/18 19:15 Respiratory Rate 16 11/09/18 19:15 Blood Pressure 158/110 H 11/09/18 19:15 Pulse Oximetry 99 11/09/18 15:14 Sign Out Sign Out Data: Patient Sign Out occurred on 11/09/18 at 19:35. Patient's care was discussed, and care was transferred from Chevy Perez MD to Montserrat Holly MD. Sign Out Comment: Case is signed out to oncoming physician awaiting CAT scan for further treatment. Planning to admit for further treatment as well. Last updated by Chevy Perez MD at 11/09/18 19:03 Post-Handoff Eval: The patient's case was checked out to me by , please see her complete history and physical. The patient's case was checked out to me at the conclusion of her shift. The patient presented with reports of lower abdominal swelling, lower extremity edema that is been in the process of being worked up by his primary care physician and GI doctor. He reports that he went on a cruise last week and the swelling greatly worsened. He reports that over the last 2-3 days related to his scrotal edema he has had times where his scrotum will get stuck to his inner thigh and with removal it causes burning and pain. He reports that he has noticed over the last 2-3 days erythema to his scrotum. He denies having any other open wounds. He reports having bilateral groin pain associated with this that has been present for the last month and a half. While the patient was being evaluated, the patient did begin to have an episode of palpitations and a run of V. tach was noted. Documented 14 beats of V. tach that spontaneously converted on its own was noted on telemetry. Cardiac enzymes were sent regarding evaluation of this. The patient reports having intermittent chest pains, no chest pain currently. The patient reports that a couple of months ago he did undergo an ablation for atrial fibrillation. He reports that he is anticoagulated on Eliquis. During the course of the patient's emergency department visit, the patient was placed on a director of cardiac cath lab with oximetry and frequent blood pressure monitoring. The patient had IV access obtained and blood work sent for analysis. The patient's diagnostic studies are remarkable for normal white blood cell count 6.6, hemoglobin 13.5, platelets 123 with 77 neutrophils. The patient's thrombocytopenia has been present previously, coagulation chemistries remarkable for chloride of 112, BUN is 34, creatinine is 1.47 which is comparable to his level of renal insufficiency previously, glucose 126, total bilirubin 2.3, alk phos 212, BNP is 508, troponin I is elevated at 0.23. Ultrasound of bilateral lower extremities reveals no evidence of DVT bilaterally. Scrotal ultra ultrasound reveals small bilateral hydroceles and epididymal head cyst on the right, no other acute abnormality. CT scan of the abdomen and pelvis shows evidence of increasing size of ascites since prior exam with haziness of the mesentery particularly on the left side, not present previously which could be related to passive congestion however peritoneal carcinomatosis should be excluded, nonfunctioning left kidney and dilated right renal pelvis chronic in nature that are not changed. A chest x-ray shows moderate cardiomegaly, no other acute abnormality. The patient reports that he is on furosemide as needed, he is unsure of the dose. He reports that he last took it 2 days ago. The patient will have a chest x-ray added to his workup. The patient will be given nitroglycerin 1 inch to the chest wall. The patient will be given aspirin 81 mg p.o. The patient's case including history, pertinent physical examination findings, and laboratory studies were discussed with Dr. Felix. It was agreed that the patient would be admitted to the [facility] hospitalist service. The patient's results were discussed with the patient, including the plan of care. I explained that further testing and/ or monitoring is indicated based on the patient's history, examination, and/ or laboratory findings. Therefore, I recommended admission for additional evaluation. The patient expressed understanding and was agreeable with this plan. The patient was admitted to the hospital in guarded condition and sent to a bed under the care of the [facility] service. Medical Decision Making [facility] Narrative Medical Screen Exam Complete: Yes Emergency Medical Condition: Yes Differential Diagnosis Differential Diagnosis: Dependent edema versus cellulitis versus scrotal abscess Lab Data Result diagrams: 11/09/18 15:26 11/09/18 15:26 Lab Results 11/09/18 11/09/18 11/09/18 Range/Units 15:26 15:26 15:26 WBC 6.6 (4.0-11.0) th/mm3 RBC 4.29 L (4.50-5.90) mil/mm3 Hgb 13.5 (13.0-17.0) gm/dL Hct 41.2 (39.0-51.0) % MCV 96.0 (80.0-100.0) fL MCH 31.5 (27.0-34.0) pg MCHC 32.8 (32.0-36.0) % RDW 17.5 H (11.6-17.2) % Plt Count 123 L (150-450) th/mm3 MPV 10.0 (7.0-11.0) fL Neut % (Auto) 77.0 H (16.0-70.0) % Lymph % (Auto) 14.8 (9.0-44.0) % [place] % (Auto) 6.6 (0.0-8.0) % Eos % (Auto) 0.9 (0.0-4.0) % Baso % (Auto) 0.7 (0.0-2.0) % Neut # (Auto) 5.0 (1.8-7.7) th/mm3 Lymph # (Auto) 1.0 (1.0-4.8) th/mm3 [place] # (Auto) 0.4 (0.0-0.9) th/mm3 Eos # (Auto) 0.1 (0.0-0.4) th/mm3 Baso # (Auto) 0.0 (0.0-0.2) th/mm3 WBC Differential . Differential Comment Auto diff final Sodium 142 (136-145) meq/L Potassium 4.1 (3.5-5.1) meq/L Chloride 112 H (98-107) meq/L Carbon Dioxide 24.1 (21.0-32.0) meq/L Anion Gap 6 (5-15) meq/L BUN 34 H (7-18) mg/dL Creatinine 1.47 H (0.60-1.30) mg/dL Estimated GFR 46 L (>89) mL/min Random Glucose 126 H (74-106) mg/dL Calcium 8.6 (8.5-10.1) mg/dL Total Bilirubin 2.3 H (0.2-1.0) mg/dL AST 21 (15-37) U/L ALT 25 (12-78) U/L Alkaline Phosphatase 212 H (45-117) U/L Troponin I (0.02-0.05) ng/mL B-Natriuretic Peptide 508 H (0-100) pg/mL Total Protein 7.0 (6.4-8.2) g/dL Albumin 3.5 (3.4-5.0) g/dL 12/16/18 Range/Units 15:26 WBC (4.0-11.0) th/mm3 RBC (4.50-5.90) mil/mm3 Hgb (13.0-17.0) gm/dL Hct (39.0-51.0) % MCV (80.0-100.0) fL MCH (27.0-34.0) pg MCHC (32.0-36.0) % RDW (11.6-17.2) % Plt Count (150-450) th/mm3 MPV (7.0-11.0) fL Neut % (Auto) (16.0-70.0) % Lymph % (Auto) (9.0-44.0) % Pen[place] % (Auto) (0.0-8.0) % Eos % (Auto) (0.0-4.0) % Baso % (Auto) (0.0-2.0) % Neut # (Auto) (1.8-7.7) th/mm3 Lymph # (Auto) (1.0-4.8) th/mm3 [place] # (Auto) (0.0-0.9) th/mm3 Eos # (Auto) (0.0-0.4) th/mm3 Baso # (Auto) (0.0-0.2) th/mm3 WBC Differential Differential Comment Sodium (136-145) meq/L Potassium (3.5-5.1) meq/L Chloride (98-107) meq/L Carbon Dioxide (21.0-32.0) meq/L Anion Gap (5-15) meq/L BUN (7-18) mg/dL Creatinine (0.60-1.30) mg/dL Estimated GFR (>89) mL/min Random Glucose (74-106) mg/dL Calcium (8.5-10.1) mg/dL Total Bilirubin (0.2-1.0) mg/dL AST (15-37) U/L ALT (12-78) U/L Alkaline Phosphatase (45-117) U/L Troponin I 0.23 H (0.02-0.05) ng/mL B-Natriuretic Peptide (0-100) pg/mL Total Protein (6.4-8.2) g/dL Albumin (3.4-5.0) g/dL Imaging Data Radiologist's impression: Abdomen/Pelvis CT 11/09/18 15:25 CONCLUSION: 1. Increasing size of the ascites since the prior examination with haziness of the mesentery particularly left side not present previously could be due to passive congestion, however peritoneal carcinomatosis should be excluded. 2. Nonfunctioning left kidney and dilated right renal pelvis chronic in nature and not changed. Scrotum Ultrasound 11/09/18 15:25 CONCLUSION: 1. Small bilateral hydroceles and there is epididymal head cyst on the right. Venous Doppler Study 11/09/18 15:28 CONCLUSION: 1. The study is negative for bilateral lower extremity deep venous thrombosis. Chest X-Ray 11/09/18 19:45 CONCLUSION: Moderate cardiomegaly. Discharge Plan Discharge Disposition Patient Disposition: ED Admit(ED Internal Use Only) Discharge Order Discharge Orders: ED Use Only Admit Order (Routine); Ordered 11/09/18 Ordered By: Montserrat Holly Discharge Details Diagnosis: Ventricular tachycardia seen on director of cardiac cath lab, Anasarca, Elevated troponin Physicians Team ED Provider: Montserrat Holly Primary Care Provider: Ailyn Quarles Attending Provider: Earnestine Felix Other Providers: Shan Shin Discharge Interventions Interventions: Vital Signs Last Done: 11/09/18 19:15 Status ED Status: Admitted Patient
[2018-11-09 15:49] LABS: Baso % (Auto) 0.7 % (0.0-2.0); Eos # (Auto) 0.1 th/mm3 (0.0-0.4); Eos % (Auto) 0.9 % (0.0-4.0); Hematocrit 41.2 % (39.0-51.0); Hemoglobin 13.5 gm/dL (13.0-17.0); Lymph % (Auto) 14.8 % (9.0-44.0); Mean Corpuscular HGB Conc 32.8 % (32.0-36.0); Mean Corpuscular Hemoglobin 31.5 pg (27.0-34.0); Mono # (Auto) 0.4 th/mm3 (0.0-0.9); Mono % (Auto) 6.6 % (0.0-8.0); Platelet Count 123 th/mm3 (150-450); Red Blood Count 4.29 mil/mm3 (4.50-5.90); Red Cell Distribution Width 17.5 % (11.6-17.2); White Blood Count 6.6 th/mm3 (4.0-11.0)
[2018-11-09 16:00] LABS: Alanine Aminotransferase 25 U/L (12-78); Albumin 3.5 g/dL (3.4-5.0); Anion Gap 6 meq/L (5-15); Aspartate Aminotransferase 21 U/L (15-37); Blood Urea Nitrogen 34 mg/dL (7-18); Calcium 8.6 mg/dL (8.5-10.1); Carbon Dioxide 24.1 meq/L (21.0-32.0); Chloride 112 meq/L (98-107); Glomerular Filtration Rate 46 mL/min (>89); Glucose,Random 126 mg/dL (74-106); Potassium 4.1 meq/L (3.5-5.1); Sodium 142 meq/L (136-145)
[2018-11-09 16:03] LABS: Alkaline Phosphatase 212 U/L (45-117)
--- NOTE | 2018-11-09 17:54 | US ---
EXAM DATE: 11/09/2018 5:51 PM EST AGE/SEX: 78 years / Male INDICATIONS: Bilateral leg swelling. CLINICAL DATA: This is the patient's initial encounter. Patient reports that signs and symptoms have been present for 4 - 6 days and indicates a pain score of 2/10. MEDICAL/SURGICAL HISTORY: Asthma. Hypertension. Colon cancer. Varicose veins of bilateral extr emities. . S/P ablation of Atrial Fibrillation. COMPARISON: No prior exams available for comparison. TECHNIQUE: Venous ultrasound of both lower extremities was performed from the inguinal ligament to t he proximal calf. Real-time, color Doppler and spectral tracing, compression and augmentation techni ques were used. FINDINGS: Right Leg: Normal compression of the deep venous system from the inguinal region to the proximal peggy f. No echogenic clot is seen. Normal response of the venous system to augmentation and respiration. Left Leg: Normal compression of the deep venous system from the inguinal region to the proximal calf . No echogenic clot is seen. Normal response of the venous system to augmentation and respiration. Other: None. CONCLUSION: 1. The study is negative for bilateral lower extremity deep venous thrombosis. Electronically signed by: Esmer Lopez MD Board Certified Radiologist 11/09/2018 5:53 PM EST
--- NOTE | 2018-11-09 18:12 | US ---
EXAM DATE: 11/09/2018 6:01 PM EST AGE/SEX: 78 years / Male INDICATIONS: Testicular swelling. CLINICAL DATA: This is the patient's initial encounter. Patient reports that signs and symptoms have been present for 1 day and indicates a pain score of 0/10. MEDICAL/SURGICAL HISTORY: Asthma. Hypertension. Atrial fibrillation. Varicose veins. Colon can cer. . S/P ablation of atrial fibrillation. COMPARISON: No prior exams available for comparison. MEASUREMENTS: Right Testicle:__4.3 x 2.5 x 3.1 cm Left Testicle:__1.8 x 2.9 x 2.7 cm FINDINGS: RIGHT: Testicle: Homogeneous echotexture without intra or extratesticular mass. Blood flow is symmetric and within normal limits. Epididymis: Visualized cyst measures 1.5 cm within the epididymal head . Hydrocele: Small hydrocele present. Varicocele: No evidence of varicocele. LEFT: Testicle: Homogeneous echotexture without intra or extratesticular mass. Blood flow is symmetric and within normal limits. Epididymis: Within normal limits. Hydrocele: Small hydrocele present. Varicocele: No evidence of varicocele. CONCLUSION: 1. Small bilateral hydroceles and there is epididymal head cyst on the right. Electronically signed by: Esmer Lopez MD Board Certified Radiologist 11/09/2018 6:10 PM EST
--- NOTE | 2018-11-09 19:15 | CT ---
EXAM DATE: 11/09/2018 7:06 PM EST AGE/SEX: 78 years / Male INDICATIONS: Abdomen pain with distention. CLINICAL DATA: This is the patient's initial encounter. Patient reports that signs and symptoms have been present for 1 day and indicates a pain score of 7/10. MEDICAL/SURGICAL HISTORY: Cardiovascular disease. Hypertension. Carcinoma, colon. Asthma Co margaret resection. Cholecystectomy. ORAL CONTRAST: No oral contrast ingested. RADIATION DOSE: 11.97 CTDI (mGy) COMPARISON: POI, CT ABDOMEN AND PELVIS W/O CONTRAST, 09/01/2018. . TECHNIQUE: Multiple contiguous axial images were obtained through the abdomen and pelvis following b olus infusion of 72 ml Omnipaque 350 (iohexol) nonionic water-soluble contrast as a single exam dos e. No oral contrast ingested. Using automated exposure control and adjustment of the mA and/or kV ac cording to patient size, radiation dose was kept as low as reasonably achievable to obtain optimal di agnostic quality images. DICOM format image data is available electronically for review and comparis on. FINDINGS: Abdomen CT: The liver, spleen, pancreas, adrenals are unremarkable. The left kidney demonstrates area hydronephro tic sac and pelvocaliectasis of basically no renal cortex probably nonfunctioning. The right kidney d emonstrates a dilated renal pelvis measures almost 6.2 cm in size. There is no evidence for any appre ciable pathological adenopathy, or bowel obstruction. There is slight ascites throughout the abdome n and pelvis. There are areas of haziness involving the mesentery particularly on the left side may b e due to passive congestion, however possibility of peritoneal carcinomatosis should also be entertai maggie with omental caking. There is also haziness to the anterior abdominal wall fat plane may be due t o edema and/or pediculitis. Pelvic CT: There is no evidence for mass, abscess formation, or any significant adenopathy within the pelvis. CONCLUSION: 1. Increasing size of the ascites since the prior examination with haziness of the mesentery particu larly left side not present previously could be due to passive congestion, however peritoneal carcino matosis should be excluded. 2. Nonfunctioning left kidney and dilated right renal pelvis chronic in nature and not changed. Electronically signed by: Esmer Lopez MD Board Certified Radiologist 11/09/2018 7:14 PM EST
[2018-11-09] MEDS ORDERED: Bisacodyl 10 MG Supp RECTAL PRN (20:09)
[2018-11-09] MEDS ORDERED: Acetaminophen 325 MG Tablet PO PRN (20:09)
--- NOTE | 2018-11-09 20:13 | P.HPIM ---
History of Present Illness Primary Care Physician: Ailyn Quarles MD History of Present Illness: This is a 78-year-old male with a PMH of HTN, Hyperlipidemia, A. fib on Eliquis , CHF (LASHAY 08/07/18 w/ EF 40-45%) and h/o Colon CA who was brought to the ER for chest pain, SOB and lower extremity/scrotal edema x3 days. States symptoms started few weeks ago, but have gotten progressively worse. Follows w/ Dr. Omalley and Dr. Shin as outpatient, s/p ablation 07/[address] Shin. States he's been doing well until now. Chest pain is intermittent, described as a "tinge", worse w/ exertion/bending down. On arrival, BP 134/90, HR 89, O2 sat 99% on RA , Afebrile. CBC unremarkable except for platelets 123. Creatinine 1.47, previously 1.31 on 08/07/2018. Troponin 0 0.23. BNP 508. CXR moderate cardiomegaly. Significant lower extremity and scrotal edema on exam. While in ER, pt w/ c/o palpitations, noted to have 15 beat run of V. tach, resolved spontaneously. S/p Lasix IV. - Diagnosis (1) V-tach (2) CHF (congestive heart failure) (3) Chest pain (4) Elevated troponin Review of Systems PAST FAMILY HISTORY: Reviewed. No h/o DM or CAD All other systems reviewed negative except as stated in HPI PMFSH - History History Provided By: Patient - Medical History Medical History: Medical History (Last Reviewed 11/09/18 @ 15:33 by Chevy Perez MD) Asthma Atrial fibrillation Colon cancer HTN (hypertension) Varicose veins of bilateral lower extremities with pain - Surgical History Surgical History: Surgical History (Last Reviewed 11/09/18 @ 15:33 by Chevy Perez MD) S/P ablation of atrial fibrillation - Tobacco History Smoking Status: Former smoker - Alcohol History How Often Do You Have a Drink Containing Alcohol: Monthly or less - Substance Use History Substance History: No History of Abuse - Travel History Recent Travel in the [place] Within the Last 8 Weeks: No Recent Travel Out of the Country Within the Last 8 Weeks: No - Immunization History Tetanus Immunization: Unsure Medications and Allergies Active Medications: Active Medications Acetaminophen (Tylenol) 650 mg PO Q4H PRN PRN Reason: Temp > 100.4 Al Hydroxide/Mg Hydroxide (Milk Of Magnesia Liq) 30 ml PO Q12H PRN PRN Reason: Mild Constipation Apixaban (Eliquis) 5 mg PO BID [facility] Bisacodyl (Dulcolax Supp) 10 mg RECTAL DAILY PRN PRN Reason: SEVERE CONSITIPATION Budesonide/Formoterol Fumarate (Symbicort 160/4.5 Mcg Inh) 2 puff INH BID [facility] Furosemide (Lasix Inj) 40 mg IV.PUSH BID@0900,1800 [facility] Lactulose (Lactulose Liq) 30 ml PO DAILY PRN PRN Reason: SEVERE CONSITIPATION Metoprolol Tartrate (Lopressor) 50 mg PO BID [facility] Morphine Sulfate (Morphine Inj) 2 mg IV.PUSH Q4H PRN PRN Reason: PAIN 6-10 Nitroglycerin (Nitro-Bid 2% Oint) 0.5 inch TOPICAL Q6HR PRN PRN Reason: CHEST PAIN Ondansetron HCl (Zofran Inj) 4 mg IV.PUSH Q6H PRN PRN Reason: NAUSEA OR VOMITING Senna/Docusate Sodium (Amairani-Colace) 1 tab PO BID [facility] Sennosides (Senokot) 17.2 mg PO Q12H PRN PRN Reason: Moderate Constipation Sodium Chloride (Ns Flush) 2 ml IV.FLUSH BID [facility] Sodium Chloride (Ns Flush) 2 ml IV.FLUSH PRN PRN PRN Reason: FLUSH AFTER USING IV ACCESS Tamsulosin HCl (Flomax) 0.4 mg PO DAILY [facility] Allergies Allergy/AdvReac Type Severity Reaction Status Date / Time Penicillins Allergy Intermediate Rash Verified 11/09/18 15:07 Home Medications Medication Instructions Recorded Confirmed Type allopurinol 100 mg PO DAILY 08/07/18 11/09/18 History apixaban [Eliquis] 5 mg PO BID 08/07/18 11/09/18 History budesonide-formoterol [Symbicort] 2 puff INHALATION BID 08/07/18 11/09/18 History furosemide [Lasix] 20 mg PO DAILY PRN 08/07/18 11/09/18 History lisinopril 20 mg PO DAILY 08/07/18 11/09/18 History potassium chloride 10 meq PO DAILY PRN 08/07/18 11/09/18 History tamsulosin 0.4 mg PO DAILY 08/07/18 11/09/18 History Exam Vital signs: Vital Signs 11/09/18 15:05 11/09/18 15:14 11/09/18 19:15 Temperature 97.4 F L Pulse Rate 89 90 88 Respiratory Rate 20 20 16 Blood Pressure 134/90 135/89 158/110 H Pulse Oximetry 99 99 Intake & Output 11/09/18 11/09/18 11/10/18 06:59 18:59 06:59 Weight 75.296 kg Narrative: PE: GENERAL: Very pleasant elderly white male in no acute distress. at bedside. SKIN: Focused skin assessment warm and dry. HEENT: PERRLA, EOMI. No scleral icterus or conjunctival pallor. No lid lag or facial droop. CARDIOVASCULAR: Regular rate and rhythm. No obvious murmurs to auscultation. No chest tenderness to palpation. RESPIRATORY: No obvious rhonchi or wheezing. Clear to auscultation. Breath sounds equal bilaterally. GASTROINTESTINAL: Abdomen soft, non-tender, nondistended. BS normal. MUSCULOSKELETAL: Extremities without clubbing, cyanosis. 3+ edema bilaterally, + scrotal edema. No obvious deformities. NEUROLOGICAL: Awake, alert and oriented x4. No focal neurologic deficits. Moving both upper and lower extremities spontaneously. PSYCHIATRIC: Appropriate mood and affect. Insight and judgment normal. Results - Labs CBC & Chem 7: 11/09/18 15:26 11/09/18 15:26 Labs: Short CBC 11/09/18 Range/Units 15:26 WBC 6.6 (4.0-11.0) th/mm3 Hgb 13.5 (13.0-17.0) gm/dL Hct 41.2 (39.0-51.0) % Plt Count 123 L (150-450) th/mm3 BMP 11/09/18 15:26 Sodium 142 Potassium 4.1 Chloride 112 H Carbon Dioxide 24.1 BUN 34 H Creatinine 1.47 H Calcium 8.6 Cardiac Enzymes 11/09/18 Range/Units 15:26 Troponin I 0.23 H (0.02-0.05) ng/mL Liver Function 11/09/18 Range/Units 15:26 Total Bilirubin 2.3 H (0.2-1.0) mg/dL AST 21 (15-37) U/L ALT 25 (12-78) U/L Alkaline Phosphatase 212 H (45-117) U/L Albumin 3.5 (3.4-5.0) g/dL - Imaging Impressions Abdomen/Pelvis CT 11/09/18 15:25 CONCLUSION: 1. Increasing size of the ascites since the prior examination with haziness of the mesentery particularly left side not present previously could be due to passive congestion, however peritoneal carcinomatosis should be excluded. 2. Nonfunctioning left kidney and dilated right renal pelvis chronic in nature and not changed. Scrotum Ultrasound 11/09/18 15:25 CONCLUSION: 1. Small bilateral hydroceles and there is epididymal head cyst on the right. Venous Doppler Study 11/09/18 15:28 CONCLUSION: 1. The study is negative for bilateral lower extremity deep venous thrombosis. Caprini VTE Risk Assessment Caprini VTE Risk Assessment: No/Low Risk (score <= 1) Caprini Risk Assessment Model: Point Value = 1 Point Value = 2 Point Value = 3 Point Value = 5 Age 41-60 Minor surgery BMI > 25 kg/m2 Swollen legs Varicose veins or History of unexplained or recurrent spontaneous Oral contraceptives or hormone replacement Sepsis (< 1 month) Serious lung disease, including pneumonia (< 1 month) Abnormal pulmonary function Acute myocardial infarction Congestive heart failure (< 1 month) History of inflammatory bowel disease Medical patient at bed rest Age 61-74 Arthroscopic surgery Major open surgery (> 45 min) Laparoscopic surgery (> 45 min) Malignancy Confined to bed (> 72 hours) Immobilizing plaster cast Central venous access Age >= 75 History of VTE Family history of VTE Factor V Leiden Prothrombin 43886H Lupus anticoagulant Anticardiolipin antibodies Elevated serum homocysteine Heparin-induced thrombocytopenia Other congenital or acquired thrombophilia Stroke (< 1 month) Elective arthroplasty Hip, pelvis, or leg fracture Acute spinal cord injury (< 1 month) Prophylaxis Regimen: Total Risk Factor Score Risk Level Prophylaxis Regimen 0-1 Low Early ambulation 2 Moderate Order ONE of the following: *Sequential Compression Device (SCD) *Heparin 5000 units SQ BID 3-4 Higher Order ONE of the following medications: *Heparin 5000 units SQ TID *Enoxaparin/Lovenox 40 mg SQ daily (WT < 150 kg, CrCl > 30 mL/min) *Enoxaparin/Lovenox 30 mg SQ daily (WT < 150 kg, CrCl > 10-29 mL/min) *Enoxaparin/Lovenox 30 mg SQ BID (WT < 150 kg, CrCl > 30 mL/min) AND/OR *Sequential Compression Device (SCD) 5 or more Highest Order ONE of the following medications: *Heparin 5000 units SQ TID (Preferred with Epidurals) *Enoxaparin/Lovenox 40 mg SQ daily (WT < 150 kg, CrCl > 30 mL/min) *Enoxaparin/Lovenox 30 mg SQ daily (WT < 150 kg, CrCl > 10-29 mL/min) *Enoxaparin/Lovenox 30 mg SQ BID (WT < 150 kg, CrCl > 30 mL/min) AND *Sequential Compression Device (SCD) Assessment and Plan - Assessment (1) V-tach Code(s): I47.2 - Ventricular tachycardia Status: Acute (2) CHF (congestive heart failure) Code(s): I50.9 - Heart failure, unspecified Status: Acute (3) Chest pain Code(s): R07.9 - Chest pain, unspecified Status: Acute (4) Elevated troponin Code(s): R74.8 - Abnormal levels of other serum enzymes Status: Acute - Plan A/P: 1. V-tach: c/o palpitations while in ER, noted to have 5-beat run of V. tach w / spontaneous resolution, Trop 0.23, possibly related to episode of dysrhythmia , however will check serial cardiac enzymes to eval for underlying ischemia. Metoprolol, monitor on telemetry, consult Cardiology for further recommendations. 2. Chest Pain: intermittent, currently chest pain free, NTG/Morphine as needed , Cardio eval 3. Elevated Trop: Trop 0.23 as above, possibly due to arrhythmia, will check serial cardiac enzymes for trend, Cardiology for further eval/intervention. 4. CHF: Acute on Chronic. Systolic. LASHAY 08/07/18 w/ EF 40-45%, +significant lower extremity/scrotal edema. Doppler LE negative for DVT. Scrotal US no significant findings. Continue w/ diuresis-caution w/ renal function, monitor I /O. 5. DVT Prophylaxis: Eliquis 6. Social work for d/c planning as needed. 7. Case discussed w/ ER physician at length, labs/records/imaging reviewed by me
--- NOTE | 2018-11-09 20:14 | XR ---
EXAM DATE: 11/09/2018 8:11 PM EST AGE/SEX: 78 years / Male INDICATIONS: Short of Breath CLINICAL DATA: This is the patient's initial encounter. Patient reports that signs and symptoms have been present for 1 day and indicates a pain score of 0/10. MEDICAL/SURGICAL HISTORY: Chronic obstructive pulmonary disease. Atrial Fib . 2 Cardiac Ablati ons COMPARISON: No prior exams available for comparison. FINDINGS: Moderate cardiomegaly seen. Lungs are clear. CONCLUSION: Moderate cardiomegaly. Electronically signed by: Esmer Lopez MD Board Certified Radiologist 11/09/2018 8:13 PM EST
[2018-11-09] MEDS: Metoprolol Tartrate 50 MG Tablet PO SCH (21:13)
[2018-11-09] MEDS: Senna/Docusate Sodium 8.6/50 MG Tablet PO SCH (21:13)
[2018-11-09] MEDS: Budesonide-Formoterol 160/4.5 MCG 6 GM Inhaler INH SCH (22:10)
[2018-11-10 07:35] LABS: Baso # (Auto) 0.1 th/mm3 (0.0-0.2); Baso % (Auto) 0.9 % (0.0-2.0); Eos # (Auto) 0.1 th/mm3 (0.0-0.4); Eos % (Auto) 1.5 % (0.0-4.0); Hematocrit 40.8 % (39.0-51.0); Hemoglobin 13.2 gm/dL (13.0-17.0); Lymph # (Auto) 1.1 th/mm3 (1.0-4.8); Lymph % (Auto) 16.4 % (9.0-44.0); Mean Corpuscular HGB Conc 32.5 % (32.0-36.0); Mean Corpuscular Hemoglobin 30.8 pg (27.0-34.0); Mean Corpuscular Volume 94.8 fL (80.0-100.0); Mean Platelet Volume 10.4 fL (7.0-11.0); Mono # (Auto) 0.6 th/mm3 (0.0-0.9); Mono % (Auto) 9.2 % (0.0-8.0); Neut # (Auto) 4.7 th/mm3 (1.8-7.7); Platelet Count 131 th/mm3 (150-450); Red Cell Distribution Width 17.1 % (11.6-17.2); White Blood Count 6.6 th/mm3 (4.0-11.0)
[2018-11-10 08:01] LABS: Albumin 3.5 g/dL (3.4-5.0); Anion Gap 9 meq/L (5-15); Aspartate Aminotransferase 18 U/L (15-37); Blood Urea Nitrogen 33 mg/dL (7-18); Calcium 9.1 mg/dL (8.5-10.1); Carbon Dioxide 23.5 meq/L (21.0-32.0); Chloride 110 meq/L (98-107); Glomerular Filtration Rate 46 mL/min (>89); Glucose,Random 78 mg/dL (74-106); Potassium 4.4 meq/L (3.5-5.1); Sodium 142 meq/L (136-145)
[2018-11-10 08:02] LABS: Alanine Aminotransferase 24 U/L (12-78)
[2018-11-10 08:06] LABS: Alkaline Phosphatase 199 U/L (45-117); Troponin I 0.24 ng/mL (0.02-0.05)
[2018-11-10] MEDS: Senna/Docusate Sodium 8.6/50 MG Tablet PO SCH ×2 (08:36→21:05)
[2018-11-10] MEDS: Metoprolol Tartrate 50 MG Tablet PO SCH ×2 (08:36→21:05)
[2018-11-10] MEDS: Budesonide-Formoterol 160/4.5 MCG 6 GM Inhaler INH SCH ×2 (08:36→21:06)
--- NOTE | 2018-11-10 13:54 | P.PNIM ---
Subjective Interval history: Patient denies any laura chest pain, however does report shortness of breath upon ambulating worse than usual. Reports bilateral lower extremity edema as well as scrotal edema slightly improving. Physical Exam Vital signs: Vital Signs 11/09/18 15:05 11/09/18 15:14 11/09/18 19:15 Temperature 97.4 F L Pulse Rate 89 90 88 Respiratory Rate 20 20 16 Blood Pressure 134/90 135/89 158/110 H Pulse Oximetry 99 99 11/09/18 23:00 11/10/18 00:00 11/10/18 01:00 Temperature 97.5 F L Pulse Rate 101 H 82 88 Respiratory Rate 16 Blood Pressure 151/109 H Pulse Oximetry 97 11/10/18 02:00 11/10/18 03:00 11/10/18 04:00 Temperature Pulse Rate 88 87 88 Respiratory Rate Blood Pressure Pulse Oximetry 11/10/18 05:00 11/10/18 05:17 11/10/18 06:00 Temperature Pulse Rate 88 89 88 Respiratory Rate 16 Blood Pressure 110/80 Pulse Oximetry 99 11/10/18 07:00 11/10/18 08:00 11/10/18 09:00 Temperature 97.5 F L Pulse Rate 88 88 88 Respiratory Rate 18 Blood Pressure 119/89 Pulse Oximetry 99 11/10/18 10:00 11/10/18 11:00 11/10/18 12:00 Temperature 97.6 F Pulse Rate 88 87 84 Respiratory Rate 18 Blood Pressure 114/90 Pulse Oximetry 99 Intake & Output 11/09/18 11/10/18 11/10/18 18:59 06:59 18:59 Intake Total 480 / 480 Output Total 2150 / 2150 Balance -1670 / -1670 Weight 75.296 kg 80.1 kg Intake: Oral 480 / 480 Output: Urine 2150 / 2150 Other: Weight On Admission 76 kg Narrative: GENERAL: Sitting up in bed. Appears comfortable. SKIN: Warm and dry. HEAD: Normocephalic. EYES: No scleral icterus. No injection or drainage. NECK: Supple, trachea midline. No JVD or lymphadenopathy. CARDIOVASCULAR: Regular rate and rhythm without murmurs, gallops, or rubs. RESPIRATORY: Breath sounds equal bilaterally. No accessory muscle use. GASTROINTESTINAL: Abdomen soft, non-tender, nondistended. MUSCULOSKELETAL: No cyanosis.. +2 peripheral edema. No broken skin or erythema. BACK: Nontender without obvious deformity. No CVA tenderness. Results - Labs CBC & Chem 7: 11/10/18 05:23 11/10/18 05:23 Laboratory Results - last 24 hr 11/09/18 11/09/18 11/09/18 15:26 15:26 15:26 WBC 6.6 RBC 4.29 L Hgb 13.5 Hct 41.2 MCV 96.0 MCH 31.5 MCHC 32.8 RDW 17.5 H Plt Count 123 L MPV 10.0 Neut % (Auto) 77.0 H Lymph % (Auto) 14.8 Kidder % (Auto) 6.6 Eos % (Auto) 0.9 Baso % (Auto) 0.7 Neut # (Auto) 5.0 Lymph # (Auto) 1.0 Kidder # (Auto) 0.4 Eos # (Auto) 0.1 Baso # (Auto) 0.0 WBC Differential . Differential Comment Auto diff final Sodium 142 Potassium 4.1 Chloride 112 H Carbon Dioxide 24.1 Anion Gap 6 BUN 34 H Creatinine 1.47 H Estimated GFR 46 L Random Glucose 126 H Calcium 8.6 Magnesium Total Bilirubin 2.3 H AST 21 ALT 25 Alkaline Phosphatase 212 H Troponin I B-Natriuretic Peptide 508 H Total Protein 7.0 Albumin 3.5 11/09/18 11/09/18 11/09/18 15:26 15:26 23:57 WBC RBC Hgb Hct MCV MCH MCHC RDW Plt Count MPV Neut % (Auto) Lymph % (Auto) Kidder % (Auto) Eos % (Auto) Baso % (Auto) Neut # (Auto) Lymph # (Auto) Kidder # (Auto) Eos # (Auto) Baso # (Auto) WBC Differential Differential Comment Sodium Potassium Chloride Carbon Dioxide Anion Gap BUN Creatinine Estimated GFR Random Glucose Calcium Magnesium 2.1 Total Bilirubin AST ALT Alkaline Phosphatase Troponin I 0.23 H 0.24 H B-Natriuretic Peptide Total Protein Albumin 11/10/18 11/10/18 05:23 05:23 WBC 6.6 RBC 4.30 L Hgb 13.2 Hct 40.8 MCV 94.8 MCH 30.8 MCHC 32.5 RDW 17.1 Plt Count 131 L MPV 10.4 Neut % (Auto) 72.0 H Lymph % (Auto) 16.4 Kidder % (Auto) 9.2 H Eos % (Auto) 1.5 Baso % (Auto) 0.9 Neut # (Auto) 4.7 Lymph # (Auto) 1.1 Kidder # (Auto) 0.6 Eos # (Auto) 0.1 Baso # (Auto) 0.1 WBC Differential . Differential Comment Auto diff final Sodium 142 Potassium 4.4 Chloride 110 H Carbon Dioxide 23.5 Anion Gap 9 BUN 33 H Creatinine 1.49 H Estimated GFR 46 L Random Glucose 78 Calcium 9.1 Magnesium Total Bilirubin 2.4 H AST 18 ALT 24 Alkaline Phosphatase 199 H Troponin I 0.24 H B-Natriuretic Peptide Total Protein 7.0 Albumin 3.5 - Imaging Impressions Abdomen/Pelvis CT 11/09/18 15:25 CONCLUSION: 1. Increasing size of the ascites since the prior examination with haziness of the mesentery particularly left side not present previously could be due to passive congestion, however peritoneal carcinomatosis should be excluded. 2. Nonfunctioning left kidney and dilated right renal pelvis chronic in nature and not changed. Scrotum Ultrasound 11/09/18 15:25 CONCLUSION: 1. Small bilateral hydroceles and there is epididymal head cyst on the right. Venous Doppler Study 11/09/18 15:28 CONCLUSION: 1. The study is negative for bilateral lower extremity deep venous thrombosis. Chest X-Ray 11/09/18 19:45 CONCLUSION: Moderate cardiomegaly. Assessment and Plan - Assessment (1) V-tach Code(s): I47.2 - Ventricular tachycardia Status: Acute (2) CHF (congestive heart failure) Code(s): I50.9 - Heart failure, unspecified Status: Acute (3) Chest pain Code(s): R07.9 - Chest pain, unspecified Status: Acute (4) Elevated troponin Code(s): R74.8 - Abnormal levels of other serum enzymes Status: Acute - Plan //V-tach: c/o palpitations while in ER, noted to have 5-beat run of V. tach w/ spontaneous resolution, Trop 0.23, possibly related to episode of dysrhythmia, however will check serial cardiac enzymes to eval for underlying ischemia. Metoprolol, monitor on telemetry, consult Cardiology for further recommendations. = Continue to monitor on telemetry. Follow-up cardiology recommendations. //Chest Pain: intermittent, currently chest pain free, NTG/Morphine as needed, Cardio eval = Resolved. Follow-up cardiology recommendations. //Elevated Trop: Trop 0.23 as above, possibly due to arrhythmia, will check serial cardiac enzymes for trend, Cardiology for further eval/intervention. = Troponin stable at 0.24. Chest pain. Cardiology following. Appreciate assistance. //CHF: Acute on Chronic. Systolic. LASHAY 08/07/18 w/ EF 40-45%, +significant lower extremity/scrotal edema. Doppler LE negative for DVT. Scrotal US no significant findings. Continue w/ diuresis-caution w/ renal function, monitor I /O. =11/10 still with edema. Continue IV Lasix. //DVT Prophylaxis: Haris Discussed Condition With: Patient Discharge Planning: Improvement and cardiology clearance.
--- NOTE | 2018-11-10 15:38 | ECG ---
Date Performed: 11/09/2018 Time Performed: 21:24:18 PTAGE: 78 years EKG: Atrial fibrillation/flutter MARKED LEFT AXIS DEVIATION INCOMPLETE RIGHT BUNDLE BRANCH BLOCK NONSPECIFIC T-WAVE ABNORMALITY When compared to previous tracing, atrial fibrillation/flutter has Re placed sinus arrhythmia. ABNORMAL ECG PREVIOUS TRACING : 08/08/2018 05.52 DOCTOR: Kiko Blake Interpretating Date/Time 11/10/2018 15:36:48
--- NOTE | 2018-11-11 07:14 | MB ---
cc: Shan Sihn MD DATE: 11/10/2018 REASON FOR CONSULTATION: Shortness of breath, tachycardia. HISTORY OF PRESENT ILLNESS: Mr. Fong is a 78-year-old gentleman with history of high blood pressure, hyperlipidemia, coronary artery disease. This gentleman with history of high blood pressure, hyperlipidemia, atrial fibrillation with previous ablation in 07/2018. He was doing well until beginning with shortness of breath on minimal activity. He was brought to the emergency room. He had scrotal edema and ascites. During hospitalization also some wide complex tachyarrhythmia observed. I was consulted for further evaluation and management. The chart was reviewed. The patient was evaluated. ALLERGIES: PENICILLIN. SOCIAL HISTORY: Negative for smoking and drinking. FAMILY HISTORY: Noncontributory to his current medical condition. MEDICATIONS: He is on Eliquis 5 mg twice a day. He is on Lasix. He is on metoprolol 50 mg twice a day. He is on Zofran and Tamsulosin 0.4 mg a day. REVIEW OF SYSTEMS: He is feeling better. The shortness of breath improved as well as edema, but no chest pain, no fever. PHYSICAL EXAMINATION: GENERAL: Alert, fully oriented. VITAL SIGNS: His blood pressure on evaluation 118/91, pulse 87, respiratory rate 18. LUNGS: Ventilated. CARDIOVASCULAR: S1, S2. Regular. ABDOMEN: Soft. No mass. No bruit. EXTREMITIES: Minimal edema. DIAGNOSTIC DATA: Electrocardiogram indicates what appeared to be atrial arrhythmia, possible atrial flutter, left axis diffuse ST changes. LABS: Hemoglobin is 13.2, white blood cell 6.6. Potassium 4.4, creatinine 1.49. Troponin 0.24. ASSESSMENT AND RECOMMENDATIONS: Mr. Fong's condition improved. His heart rate is under control. He was on amiodarone. The gentleman unable to tolerate the medication and stopped the medication. He is back in tachyarrhythmia. At this point, my recommendation is rate control. The patient will remain on anticoagulation. Cardioversion will be obtained. The gentleman usually could not tolerate atrial arrhythmia, getting very symptomatic. There is some concern about history of colon cancer. Apparently, the patient's last workup was negative. At this point, I will discontinue the Lasix. I will keep this gentleman tomorrow morning n.p.o. and I will attempt a cardioversion. After that, decision about antiarrhythmia can be taken. Case extensively discussed with the gentleman. MD ELLIOT Lopez/neris , 06:49 AM , 07:00 AM
[2018-11-11] MEDS: Senna/Docusate Sodium 8.6/50 MG Tablet PO SCH ×2 (09:09→20:53)
[2018-11-11] MEDS: Metoprolol Tartrate 50 MG Tablet PO SCH ×2 (09:09→20:53)
[2018-11-11] MEDS: Furosemide 40 MG Tablet PO SCH (09:09)
[2018-11-11] MEDS: Budesonide-Formoterol 160/4.5 MCG 6 GM Inhaler INH SCH ×2 (09:11→20:53)
--- NOTE | 2018-11-11 15:11 | P.PNIM ---
Subjective Interval history: Patient says he is feeling right. Edema is improving. Denies any chest pain or shortness of breath currently. Physical Exam Vital signs: Vital Signs 11/10/18 16:00 11/10/18 17:00 11/10/18 18:00 Temperature 97.6 F Pulse Rate 86 86 88 Respiratory Rate 18 Blood Pressure 118/91 H Pulse Oximetry 100 11/10/18 19:00 11/10/18 20:00 11/10/18 21:00 Temperature 98 F Pulse Rate 88 88 88 Respiratory Rate 18 Blood Pressure 109/80 Pulse Oximetry 100 11/10/18 22:00 11/10/18 23:00 11/11/18 00:00 Temperature 98 F Pulse Rate 86 86 86 Respiratory Rate 18 Blood Pressure 107/85 Pulse Oximetry 100 11/11/18 01:00 11/11/18 02:00 11/11/18 03:00 Temperature Pulse Rate 86 86 85 Respiratory Rate Blood Pressure Pulse Oximetry 11/11/18 03:24 11/11/18 04:00 11/11/18 05:00 Temperature 97.7 F Pulse Rate 87 86 86 Respiratory Rate 18 Blood Pressure 118/87 Pulse Oximetry 96 11/11/18 05:53 11/11/18 07:00 11/11/18 07:28 Temperature 97.5 F L Pulse Rate 86 87 87 Respiratory Rate 16 Blood Pressure 121/97 H Pulse Oximetry 95 11/11/18 08:00 11/11/18 09:00 11/11/18 10:00 Temperature Pulse Rate 87 86 88 Respiratory Rate Blood Pressure Pulse Oximetry 11/11/18 10:42 11/11/18 12:00 11/11/18 12:56 Temperature 98.3 F Pulse Rate 88 87 80 Respiratory Rate 16 Blood Pressure 87/54 L Pulse Oximetry 98 11/11/18 13:04 Temperature 97.6 F Pulse Rate 89 Respiratory Rate 14 Blood Pressure 112/81 Pulse Oximetry 100 Intake & Output 11/10/18 11/11/18 11/11/18 18:59 06:59 18:59 Intake Total 480 / 480 Output Total 1300 / 1300 Balance -820 / -820 Weight 71.5 kg Intake: Oral 480 / 480 Output: Urine 1300 / 1300 Other: Date of Last Bowel Movement 11/10/18 Narrative: GENERAL: Sitting up in bed. Appears comfortable. SKIN: Warm and dry. HEAD: Normocephalic. EYES: No scleral icterus. No injection or drainage. NECK: Supple, trachea midline. Minimal JVD as yesterday. CARDIOVASCULAR: Regular rate and rhythm without murmurs, gallops, or rubs. RESPIRATORY: Breath sounds equal bilaterally. No accessory muscle use. GASTROINTESTINAL: Abdomen soft, non-tender, nondistended. MUSCULOSKELETAL: No cyanosis.. +1 peripheral edema. No broken skin or erythema. BACK: Nontender without obvious deformity. No CVA tenderness. Results - Labs CBC & Chem 7: 11/10/18 05:23 11/10/18 05:23 Assessment and Plan - Assessment (1) V-tach Code(s): I47.2 - Ventricular tachycardia Status: Acute (2) CHF (congestive heart failure) Code(s): I50.9 - Heart failure, unspecified Status: Acute (3) Chest pain Code(s): R07.9 - Chest pain, unspecified Status: Acute (4) Elevated troponin Code(s): R74.8 - Abnormal levels of other serum enzymes Status: Acute - Plan //V-tach: c/o palpitations while in ER, noted to have 5-beat run of V. tach w/ spontaneous resolution, Trop 0.23, possibly related to episode of dysrhythmia, however will check serial cardiac enzymes to eval for underlying ischemia. Metoprolol, monitor on telemetry, consult Cardiology for further recommendations. = Continue to monitor on telemetry. Follow-up cardiology recommendations. //Chest Pain: intermittent, currently chest pain free, NTG/Morphine as needed, Cardio eval = Resolved. Follow-up cardiology recommendations. -Appreciate cardiology assistance. Follow-up recommendations. //Elevated Trop: Trop 0.23 as above, possibly due to arrhythmia, will check serial cardiac enzymes for trend, Cardiology for further eval/intervention. = Troponin stable at 0.24. Chest pain resolved currently. Cardiology following. Appreciate assistance. //CHF: Acute on Chronic. Systolic. LASHAY 08/07/18 w/ EF 40-45%, +significant lower extremity/scrotal edema. Doppler LE negative for DVT. Scrotal US no significant findings. Continue w/ diuresis-caution w/ renal function, monitor I /O. =Continue IV Lasix. Cardiology following. Appreciate assistance. //DVT Prophylaxis: Eliquis Discharge Planning: Improvement and cardiology clearance. -Have also ordered PT evaluation.
[2018-11-11] MEDS: Flecainide 100 MG Tablet PO SCH (20:53)
--- NOTE | 2018-11-11 23:09 | P.PN ---
Subjective Interval history: Feeling ok Physical Exam Vital signs: Vital Signs 11/11/18 00:00 11/11/18 01:00 11/11/18 02:00 Temperature 98 F Pulse Rate 86 86 86 Respiratory Rate 18 Blood Pressure 107/85 Pulse Oximetry 100 11/11/18 03:00 11/11/18 03:24 11/11/18 04:00 Temperature 97.7 F Pulse Rate 85 87 86 Respiratory Rate 18 Blood Pressure 118/87 Pulse Oximetry 96 11/11/18 05:00 11/11/18 05:53 11/11/18 07:00 Temperature Pulse Rate 86 86 87 Respiratory Rate Blood Pressure Pulse Oximetry 11/11/18 07:28 11/11/18 08:00 11/11/18 09:00 Temperature 97.5 F L Pulse Rate 87 87 86 Respiratory Rate 16 Blood Pressure 121/97 H Pulse Oximetry 95 11/11/18 10:00 11/11/18 10:42 11/11/18 12:00 Temperature Pulse Rate 88 88 87 Respiratory Rate Blood Pressure Pulse Oximetry 11/11/18 12:56 11/11/18 13:04 11/11/18 15:00 Temperature 98.3 F 97.6 F Pulse Rate 80 89 90 Respiratory Rate 16 14 Blood Pressure 87/54 L 112/81 Pulse Oximetry 98 100 11/11/18 15:16 11/11/18 16:00 11/11/18 16:46 Temperature 98.5 F 98.5 F Pulse Rate 90 90 90 Respiratory Rate 16 16 14 Blood Pressure 110/85 110/85 Pulse Oximetry 96 96 11/11/18 17:00 11/11/18 17:43 11/11/18 17:44 Temperature Pulse Rate 89 89 88 Respiratory Rate Blood Pressure Pulse Oximetry 11/11/18 19:00 11/11/18 19:52 11/11/18 20:00 Temperature 98.2 F Pulse Rate 90 91 H 89 Respiratory Rate 19 Blood Pressure 131/99 H Pulse Oximetry 98 11/11/18 21:00 11/11/18 22:00 11/11/18 22:56 Temperature Pulse Rate 87 83 79 Respiratory Rate Blood Pressure Pulse Oximetry Intake & Output 11/11/18 11/11/18 11/12/18 06:59 18:59 06:59 Intake Total 480 / 480 580 / 580 Output Total 1300 / 1300 Balance -820 / -820 580 / 580 Weight 71.5 kg Intake: Oral 480 / 480 580 / 580 Output: Urine 1300 / 1300 Other: # Voids 5 Date of Last Bowel Movement 11/10/18 11/11/18 - Constitutional no acute distress - Routine HEENT Exam Head: Present: normocephalic Eye: Present: PERRL ENT: Present: mucous membranes moist - Routine Respiratory Exam Present: CTA bilaterally - Routine Cardiovascular Exam Present: RRR, S1, S2, tachycardia - Routine Neurological Exam Present: alert, oriented X3 - Detailed Neurological Exam: Coma Scale Eye Opening: Spontaneous Verbal Response: Oriented Results - Labs CBC & Chem 7: 11/10/18 05:23 11/10/18 05:23 Assessment and Plan - Assessment (1) Atrial fibrillation Code(s): I48.91 - Unspecified atrial fibrillation Status: Acute Plan: In left atrial tach/atrial fibrillation Very symptomatic cannot tolerate arrhythmia No hx of CAD Last Echo EF 45% Arrhythmia contribute to heart failure symptoms Amio DC Flecainide added. Will be observed. If not back into sinus rhythm tomorrow then cardioversion will be considered Case discussed with patient
[2018-11-12 06:26] LABS: Baso % (Auto) 0.8 % (0.0-2.0); Eos # (Auto) 0.1 th/mm3 (0.0-0.4); Eos % (Auto) 1.1 % (0.0-4.0); Hematocrit 41.7 % (39.0-51.0); Hemoglobin 13.8 gm/dL (13.0-17.0); Lymph # (Auto) 1.2 th/mm3 (1.0-4.8); Mean Corpuscular HGB Conc 33.1 % (32.0-36.0); Mean Corpuscular Hemoglobin 31.3 pg (27.0-34.0); Mean Corpuscular Volume 94.5 fL (80.0-100.0); Mean Platelet Volume 10.6 fL (7.0-11.0); Mono # (Auto) 0.7 th/mm3 (0.0-0.9); Mono % (Auto) 10.5 % (0.0-8.0); Neut # (Auto) 4.3 th/mm3 (1.8-7.7); Neut % (Auto) 68.6 % (16.0-70.0); Platelet Count 131 th/mm3 (150-450); Red Blood Count 4.41 mil/mm3 (4.50-5.90); Red Cell Distribution Width 17.1 % (11.6-17.2); White Blood Count 6.2 th/mm3 (4.0-11.0)
[2018-11-12 06:54] LABS: Albumin 3.3 g/dL (3.4-5.0); Calcium 8.5 mg/dL (8.5-10.1); Carbon Dioxide 26.2 meq/L (21.0-32.0); Magnesium 2.1 mg/dL (1.5-2.5); Phosphorus 3.6 mg/dL (2.5-4.9); Potassium 4.2 meq/L (3.5-5.1)
[2018-11-12] MEDS: Flecainide 100 MG Tablet PO SCH (09:13)
[2018-11-12] MEDS: Senna/Docusate Sodium 8.6/50 MG Tablet PO SCH ×2 (09:13→21:02)
[2018-11-12] MEDS: Metoprolol Tartrate 50 MG Tablet PO SCH (09:13)
[2018-11-12] MEDS: Furosemide 40 MG Tablet PO SCH (09:13)
[2018-11-12] MEDS: Budesonide-Formoterol 160/4.5 MCG 6 GM Inhaler INH SCH ×2 (09:14→21:02)
--- NOTE | 2018-11-12 10:03 | P.PNIM ---
Subjective Interval history: Patient says he is feeling right. Walking around all right. Says that shortness of breath is improved. Denies any chest pain. Says scrotal edema is improving. Physical Exam Vital signs: Vital Signs 11/11/18 10:42 11/11/18 12:00 11/11/18 12:56 Temperature 98.3 F Pulse Rate 88 87 80 Respiratory Rate 16 Blood Pressure 87/54 L Pulse Oximetry 98 11/11/18 13:04 11/11/18 15:00 11/11/18 15:16 Temperature 97.6 F 98.5 F Pulse Rate 89 90 90 Respiratory Rate 14 16 Blood Pressure 112/81 110/85 Pulse Oximetry 100 96 11/11/18 16:00 11/11/18 16:46 11/11/18 17:00 Temperature 98.5 F Pulse Rate 90 90 89 Respiratory Rate 16 14 Blood Pressure 110/85 Pulse Oximetry 96 11/11/18 17:43 11/11/18 17:44 11/11/18 19:00 Temperature Pulse Rate 89 88 90 Respiratory Rate Blood Pressure Pulse Oximetry 11/11/18 19:52 11/11/18 20:00 11/11/18 21:00 Temperature 98.2 F Pulse Rate 91 H 89 87 Respiratory Rate 19 Blood Pressure 131/99 H Pulse Oximetry 98 11/11/18 22:00 11/11/18 22:56 11/12/18 00:00 Temperature 97.7 F Pulse Rate 83 79 75 Respiratory Rate 18 Blood Pressure 92/72 L Pulse Oximetry 97 11/12/18 01:00 11/12/18 02:00 11/12/18 03:00 Temperature Pulse Rate 75 76 75 Respiratory Rate Blood Pressure Pulse Oximetry 11/12/18 04:00 11/12/18 05:00 11/12/18 06:00 Temperature 97.5 F L Pulse Rate 76 76 75 Respiratory Rate 16 Blood Pressure 108/84 Pulse Oximetry 97 11/12/18 07:38 11/12/18 07:40 Temperature 97.5 F L Pulse Rate 78 77 Respiratory Rate 16 Blood Pressure 112/86 Pulse Oximetry 97 Intake & Output 11/11/18 11/12/18 11/12/18 18:59 06:59 18:59 Intake Total 580 / 580 480 / 480 Output Total 125 / 125 Balance 580 / 580 355 / 355 Weight 74 kg Intake: Oral 580 / 580 480 / 480 Output: Urine 125 / 125 Other: # Voids 5 1 Date of Last Bowel Movement 11/10/18 11/11/18 11/11/18 Narrative: GENERAL: Sitting up in bed. Appears comfortable. SKIN: Warm and dry. HEAD: Normocephalic. EYES: No scleral icterus. No injection or drainage. NECK: Supple, trachea midline. Minimal JVD as yesterday. CARDIOVASCULAR: Regular rate and rhythm without murmurs, gallops, or rubs. RESPIRATORY: Breath sounds equal bilaterally. No accessory muscle use. GASTROINTESTINAL: Abdomen soft, non-tender, nondistended. MUSCULOSKELETAL: No cyanosis. Patient without any peripheral edema. Patient still with some scrotal edema. No erythema. No broken skin or erythema. BACK: Nontender without obvious deformity. No CVA tenderness. Results - Labs CBC & Chem 7: 11/12/18 05:21 11/12/18 05:21 Laboratory Results - last 24 hr 11/12/18 11/12/18 11/12/18 05:21 05:21 05:21 WBC 6.2 RBC 4.41 L Hgb 13.8 Hct 41.7 MCV 94.5 MCH 31.3 MCHC 33.1 RDW 17.1 Plt Count 131 L MPV 10.6 Neut % (Auto) 68.6 Lymph % (Auto) 19.0 [place] % (Auto) 10.5 H Eos % (Auto) 1.1 Baso % (Auto) 0.8 Neut # (Auto) 4.3 Lymph # (Auto) 1.2 [place] # (Auto) 0.7 Eos # (Auto) 0.1 Baso # (Auto) 0.0 WBC Differential . Differential Comment Auto diff final Sodium 139 Potassium 4.2 Chloride 104 Carbon Dioxide 26.2 Anion Gap 9 BUN 42 H Creatinine 1.70 H Estimated GFR 39 L Random Glucose 94 Calcium 8.5 Phosphorus 3.6 Magnesium 2.1 B-Natriuretic Peptide 429 H Albumin 3.3 L Assessment and Plan - Assessment (1) V-tach Code(s): I47.2 - Ventricular tachycardia Status: Acute (2) CHF (congestive heart failure) Code(s): I50.9 - Heart failure, unspecified Status: Acute (3) Chest pain Code(s): R07.9 - Chest pain, unspecified Status: Acute (4) Elevated troponin Code(s): R74.8 - Abnormal levels of other serum enzymes Status: Acute - Plan //V-tach: c/o palpitations while in ER, noted to have 5-beat run of V. tach w/ spontaneous resolution, Trop 0.23, possibly related to episode of dysrhythmia, however will check serial cardiac enzymes to eval for underlying ischemia. Metoprolol, monitor on telemetry, consult Cardiology for further recommendations. = Continue to monitor on telemetry. Follow-up cardiology recommendations. = 11/12. Patient started on flecainide yesterday. Continue management as per cardiology. //Chest Pain: intermittent, currently chest pain free, NTG/Morphine as needed, Cardio eval = Resolved. Follow-up cardiology recommendations. -Appreciate cardiology assistance. Follow-up recommendations. //Elevated Trop: Trop 0.23 as above, possibly due to arrhythmia, will check serial cardiac enzymes for trend, Cardiology for further eval/intervention. = Troponin stable at 0.24. Chest pain resolved. Cardiology following. Appreciate assistance. //CHF: Acute on Chronic. Systolic. LASHAY 08/07/18 w/ EF 40-45%, +significant lower extremity/scrotal edema. Doppler LE negative for DVT. Scrotal US no significant findings. Continue w/ diuresis-caution w/ renal function, monitor I /O. =Continue IV Lasix. Cardiology following. Appreciate assistance. =. Fluid overload improving. Will place patient on fluid restrictions. Continue p.o. Lasix. //DVT Prophylaxis: Eliquis Discharge Planning: Pending cardiology clearance. -Follow-up PT evaluation. = Hopefully discharge tomorrow 11/13
--- NOTE | 2018-11-12 20:10 | P.PN ---
Subjective Interval history: Nausea. Pain all over the body Physical Exam Vital signs: Vital Signs 11/11/18 21:00 11/11/18 22:00 11/11/18 22:56 Temperature Pulse Rate 87 83 79 Respiratory Rate Blood Pressure Pulse Oximetry 11/12/18 00:00 11/12/18 01:00 11/12/18 02:00 Temperature 97.7 F Pulse Rate 75 75 76 Respiratory Rate 18 Blood Pressure 92/72 L Pulse Oximetry 97 11/12/18 03:00 11/12/18 04:00 11/12/18 05:00 Temperature 97.5 F L Pulse Rate 75 76 76 Respiratory Rate 16 Blood Pressure 108/84 Pulse Oximetry 97 11/12/18 06:00 11/12/18 07:38 11/12/18 07:40 Temperature 97.5 F L Pulse Rate 75 78 77 Respiratory Rate 16 Blood Pressure 112/86 Pulse Oximetry 97 11/12/18 09:00 11/12/18 10:00 11/12/18 11:00 Temperature Pulse Rate 76 80 82 Respiratory Rate Blood Pressure Pulse Oximetry 11/12/18 12:00 11/12/18 13:00 11/12/18 14:00 Temperature 98.4 F Pulse Rate 68 44 L 43 L Respiratory Rate 16 Blood Pressure 98/76 L Pulse Oximetry 98 11/12/18 14:10 11/12/18 14:40 11/12/18 15:00 Temperature Pulse Rate 43 L 45 L 42 L Respiratory Rate 18 18 18 Blood Pressure 75/53 L 84/50 L 88/59 L Pulse Oximetry 94 L 95 94 L 11/12/18 15:50 11/12/18 15:58 11/12/18 16:55 Temperature 97.5 F L Pulse Rate 49 L 45 L 45 L Respiratory Rate 14 Blood Pressure 89/60 L Pulse Oximetry 99 11/12/18 17:00 11/12/18 17:56 11/12/18 19:00 Temperature Pulse Rate 40 L 42 L 40 L Respiratory Rate Blood Pressure Pulse Oximetry 11/12/18 19:22 Temperature 97.5 F L Pulse Rate 38 L Respiratory Rate 19 Blood Pressure 91/62 L Pulse Oximetry 98 Intake & Output 11/12/18 11/12/18 11/13/18 06:59 18:59 06:59 Intake Total 480 / 480 730 / 730 Output Total 125 / 125 450 / 450 Balance 355 / 355 280 / 280 Weight 74 kg Intake: Oral 480 / 480 480 / 480 Other 250 / 250 Output: Urine 125 / 125 450 / 450 Other: Other Intake Source Saline Solution # Voids 1 Date of Last Bowel Movement 11/11/18 11/12/18 11/12/18 - Constitutional no acute distress - Routine HEENT Exam Head: Present: normocephalic Eye: Present: PERRL ENT: Present: mucous membranes moist - Routine Respiratory Exam Present: CTA bilaterally - Routine Cardiovascular Exam Present: S1, S2, bradycardia, irregularly irregular - Routine Abdominal Exam Present: soft - Routine Neurological Exam Present: alert, oriented X3 - Detailed Neurological Exam: Coma Scale Eye Opening: Spontaneous Verbal Response: Oriented Motor Response: Obey commands [place] Coma Scale Total: 15 Results - Labs CBC & Chem 7: 11/12/18 05:21 11/12/18 05:21 Laboratory Results - last 24 hr 11/12/18 11/12/18 11/12/18 05:21 05:21 05:21 WBC 6.2 RBC 4.41 L Hgb 13.8 Hct 41.7 MCV 94.5 MCH 31.3 MCHC 33.1 RDW 17.1 Plt Count 131 L MPV 10.6 Neut % (Auto) 68.6 Lymph % (Auto) 19.0 [place] % (Auto) 10.5 H Eos % (Auto) 1.1 Baso % (Auto) 0.8 Neut # (Auto) 4.3 Lymph # (Auto) 1.2 [place] # (Auto) 0.7 Eos # (Auto) 0.1 Baso # (Auto) 0.0 WBC Differential . Differential Comment Auto diff final Sodium 139 Potassium 4.2 Chloride 104 Carbon Dioxide 26.2 Anion Gap 9 BUN 42 H Creatinine 1.70 H Estimated GFR 39 L Random Glucose 94 Calcium 8.5 Phosphorus 3.6 Magnesium 2.1 B-Natriuretic Peptide 429 H Albumin 3.3 L Assessment and Plan - Assessment (1) Atrial fibrillation Code(s): I48.91 - Unspecified atrial fibrillation Status: Acute Plan: IN atrial fibrillation Bradycardia Flecainide held will be decreased in AM to 50 mg bid Cardioversion will be attempted Will need to be monitored for an extra 24 hrs post cardioversion for meds readjustment.
[2018-11-13] MEDS: Flecainide 100 MG Tablet PO SCH ×2 (10:45→22:01)
[2018-11-13] MEDS: Furosemide 40 MG Tablet PO SCH (10:49)
[2018-11-13] MEDS: Senna/Docusate Sodium 8.6/50 MG Tablet PO SCH ×2 (10:50→20:45)
[2018-11-13] MEDS: Budesonide-Formoterol 160/4.5 MCG 6 GM Inhaler INH SCH ×2 (10:51→20:44)
--- NOTE | 2018-11-13 11:09 | P.PN ---
Subjective Interval history: Feeling ok No abdominal pain Physical Exam Vital signs: Vital Signs 11/12/18 12:00 11/12/18 13:00 11/12/18 14:00 Temperature 98.4 F Pulse Rate 68 44 L 43 L Respiratory Rate 16 Blood Pressure 98/76 L Pulse Oximetry 98 11/12/18 14:10 11/12/18 14:40 11/12/18 15:00 Temperature Pulse Rate 43 L 45 L 42 L Respiratory Rate 18 18 18 Blood Pressure 75/53 L 84/50 L 88/59 L Pulse Oximetry 94 L 95 94 L 11/12/18 15:50 11/12/18 15:58 11/12/18 16:55 Temperature 97.5 F L Pulse Rate 49 L 45 L 45 L Respiratory Rate 14 Blood Pressure 89/60 L Pulse Oximetry 99 11/12/18 17:00 11/12/18 17:56 11/12/18 19:00 Temperature Pulse Rate 40 L 42 L 40 L Respiratory Rate Blood Pressure Pulse Oximetry 11/12/18 19:22 11/12/18 20:00 11/12/18 21:00 Temperature 97.5 F L Pulse Rate 38 L 40 L 45 L Respiratory Rate 19 Blood Pressure 91/62 L Pulse Oximetry 98 11/12/18 22:00 11/12/18 23:00 11/13/18 00:00 Temperature 97.6 F Pulse Rate 54 L 45 L 36 L Respiratory Rate 18 Blood Pressure 91/63 L Pulse Oximetry 96 11/13/18 01:00 11/13/18 02:00 11/13/18 03:00 Temperature Pulse Rate 36 L 38 L 40 L Respiratory Rate Blood Pressure Pulse Oximetry 11/13/18 04:00 11/13/18 05:00 11/13/18 06:00 Temperature 97.6 F Pulse Rate 39 L 38 L 37 L Respiratory Rate 18 Blood Pressure 105/57 L Pulse Oximetry 95 11/13/18 07:13 11/13/18 07:34 11/13/18 08:00 Temperature 97.1 F L Pulse Rate 42 L 36 L 36 L Respiratory Rate 18 Blood Pressure 111/58 L Pulse Oximetry 97 Intake & Output 11/12/18 11/13/18 11/13/18 18:59 06:59 18:59 Intake Total 730 / 730 240 / 240 Output Total 450 / 450 Balance 280 / 280 240 / 240 Weight 74.8 kg Intake: Oral 480 / 480 240 / 240 Other 250 / 250 Output: Urine 450 / 450 Other: Other Intake Source Saline Solution # Voids 3 Date of Last Bowel Movement 11/12/18 11/12/18 11/12/18 - Constitutional no acute distress - Routine HEENT Exam Head: Present: normocephalic Eye: Present: PERRL ENT: Present: mucous membranes moist - Routine Respiratory Exam Present: CTA bilaterally - Routine Cardiovascular Exam Present: RRR, S1, S2 - Routine Abdominal Exam Present: soft - Routine Neurological Exam Present: alert, oriented X3, normal reflexes - Detailed Neurological Exam: Coma Scale Eye Opening: Spontaneous Verbal Response: Oriented Motor Response: Obey commands [place] Coma Scale Total: 15 Results - Labs CBC & Chem 7: 11/12/18 05:21 11/12/18 05:21 Assessment and Plan - Assessment (1) Atrial fibrillation Code(s): I48.91 - Unspecified atrial fibrillation Status: Acute Plan: In junctional rhythm with a retrograde P wave Metoprolol stopped yesterday. Flecainide decreased to 50 mg bid but not given yet. Will be observed for now Flecainide will be resume tonight or tomorrow AM if rhythm corrected.
[2018-11-13 13:48] LABS: Calcium 8.7 mg/dL (8.5-10.1); Carbon Dioxide 23.6 meq/L (21.0-32.0); Potassium 5.3 meq/L (3.5-5.1)
--- NOTE | 2018-11-13 14:27 | P.PNIM ---
Subjective Interval history: Patient lying in bed. Says he is feeling fatigued today. Reports decreased urine output. Denies any dysuria. Denies any chest pain. Denies any nausea or vomiting. Physical Exam Vital signs: Vital Signs 11/12/18 14:40 11/12/18 15:00 11/12/18 15:50 Temperature Pulse Rate 45 L 42 L 49 L Respiratory Rate 18 18 Blood Pressure 84/50 L 88/59 L Pulse Oximetry 95 94 L 11/12/18 15:58 11/12/18 16:55 11/12/18 17:00 Temperature 97.5 F L Pulse Rate 45 L 45 L 40 L Respiratory Rate 14 Blood Pressure 89/60 L Pulse Oximetry 99 11/12/18 17:56 11/12/18 19:00 11/12/18 19:22 Temperature 97.5 F L Pulse Rate 42 L 40 L 38 L Respiratory Rate 19 Blood Pressure 91/62 L Pulse Oximetry 98 11/12/18 20:00 11/12/18 21:00 11/12/18 22:00 Temperature Pulse Rate 40 L 45 L 54 L Respiratory Rate Blood Pressure Pulse Oximetry 11/12/18 23:00 11/13/18 00:00 11/13/18 01:00 Temperature 97.6 F Pulse Rate 45 L 36 L 36 L Respiratory Rate 18 Blood Pressure 91/63 L Pulse Oximetry 96 11/13/18 02:00 11/13/18 03:00 11/13/18 04:00 Temperature 97.6 F Pulse Rate 38 L 40 L 39 L Respiratory Rate 18 Blood Pressure 105/57 L Pulse Oximetry 95 11/13/18 05:00 11/13/18 06:00 11/13/18 07:00 Temperature Pulse Rate 38 L 37 L 36 L Respiratory Rate Blood Pressure Pulse Oximetry 11/13/18 07:13 11/13/18 08:00 11/13/18 09:00 Temperature 97.1 F L Pulse Rate 42 L 36 L 38 L Respiratory Rate 18 Blood Pressure 111/58 L Pulse Oximetry 97 11/13/18 10:00 11/13/18 11:00 11/13/18 12:00 Temperature Pulse Rate 40 L 36 L 36 L Respiratory Rate 18 Blood Pressure 110/83 Pulse Oximetry 98 Intake & Output 11/12/18 11/13/18 11/13/18 18:59 06:59 18:59 Intake Total 730 / 730 240 / 240 Output Total 450 / 450 Balance 280 / 280 240 / 240 Weight 74.8 kg Intake: Oral 480 / 480 240 / 240 Other 250 / 250 Output: Urine 450 / 450 Other: Other Intake Source Saline Solution # Voids 3 Date of Last Bowel Movement 11/12/18 11/12/18 11/12/18 Narrative: GENERAL: Lying in bed. Appears comfortable. SKIN: Warm and dry. HEAD: Normocephalic. EYES: No scleral icterus. No injection or drainage. NECK: Supple, trachea midline. Minimal JVD as yesterday. CARDIOVASCULAR: Regular rate and rhythm without murmurs, gallops, or rubs. RESPIRATORY: Breath sounds equal bilaterally. No accessory muscle use. GASTROINTESTINAL: Abdomen soft, non-tender, nondistended. MUSCULOSKELETAL: No cyanosis. Patient without any peripheral edema. Patient still with some scrotal edema, improving still.. No erythema. No broken skin or erythema. BACK: Nontender without obvious deformity. No CVA tenderness. Results - Labs CBC & Chem 7: 11/12/18 05:21 11/13/18 13:03 Laboratory Results - last 24 hr 11/13/18 13:03 Sodium 136 Potassium 5.3 H D Chloride 102 Carbon Dioxide 23.6 Anion Gap 10 BUN 61 H Creatinine 3.96 H Estimated GFR 15 L Random Glucose 112 H Calcium 8.7 Assessment and Plan - Assessment (1) V-tach Code(s): I47.2 - Ventricular tachycardia Status: Acute (2) CHF (congestive heart failure) Code(s): I50.9 - Heart failure, unspecified Status: Acute (3) Chest pain Code(s): R07.9 - Chest pain, unspecified Status: Acute (4) Elevated troponin Code(s): R74.8 - Abnormal levels of other serum enzymes Status: Acute - Plan //V-tach: c/o palpitations while in ER, noted to have 5-beat run of V. tach w/ spontaneous resolution, Trop 0.23, possibly related to episode of dysrhythmia, however will check serial cardiac enzymes to eval for underlying ischemia. Metoprolol, monitor on telemetry, consult Cardiology for further recommendations. = Continue to monitor on telemetry. Follow-up cardiology recommendations. = 11/12. Patient started on flecainide yesterday. Continue management as per cardiology. = 11/13. Patient with bradycardia today. Metoprolol discontinued by cardiology. On decreased dose of flecainide. He appreciate cardiology assistance. //Chest Pain: intermittent, currently chest pain free, NTG/Morphine as needed, Cardio eval = Resolved. Follow-up cardiology recommendations. -Appreciate cardiology assistance. Follow-up recommendations. = Appears to have resolved //Elevated Trop: Trop 0.23 as above, possibly due to arrhythmia, will check serial cardiac enzymes for trend, Cardiology for further eval/intervention. = Troponin stable at 0.24. Chest pain resolved. Cardiology following. Appreciate assistance. //CHF: Acute on Chronic. Systolic. LASHAY 08/07/18 w/ EF 40-45%, +significant lower extremity/scrotal edema. Doppler LE negative for DVT. Scrotal US no significant findings. Continue w/ diuresis-caution w/ renal function, monitor I /O. =Continue IV Lasix. Cardiology following. Appreciate assistance. =/. Fluid overload improving. Will place patient on fluid restrictions. Continue p.o. Lasix. = 11/13. Renal failure. Possibly secondary to overdiuresis versus bradycardia. Will start on IV fluids. //Oliguric acute kidney injury on chronic kidney disease stage III. -Creatinine 3.96 from 1.7 yesterday. Likely prerenal secondary to bradycardia. I have notified cardiology. = We will check renal ultrasound. Place [facility]. Consult nephrology. Patient may have been over diuresed. BNP 429 yesterday however. Will start on IV fluids and monitor closely. //DVT Prophylaxis: Eliquis Discharge Planning: Pending cardiology clearance. -Follow-up PT evaluation. = 11/13. Patient with worsening bradycardia and acute kidney injury. Likely to be in the hospital for at least the next several days.
[2018-11-13] MEDS ORDERED: Sodium Chlor 0.9% Inj 250 ML IV.SIG ONE (14:37)
[2018-11-13 15:01] LABS: Albumin 3.4 g/dL (3.4-5.0); Total Protein 6.8 g/dL (6.4-8.2)
--- NOTE | 2018-11-13 15:26 | US ---
EXAM DATE: 11/13/2018 3:05 PM EST AGE/SEX: 78 years / Male INDICATIONS: Hydronephrosis. CLINICAL DATA: This is the patient's subsequent encounter. Patient reports that signs and symptoms h ave been present for 4 - 6 days and indicates a pain score of 0/10. MEDICAL/SURGICAL HISTORY: . Asthma. Hypertension. Colon cancer. Varicose veins of bilateral ext remities. . S/P ablation of Atrial Fibrillation. COMPARISON: [facility], CT ABDOMEN & PELVIS W CONTRAST, 11/09/2018. [facility], CT ABDOMEN AND PELVIS W/O CON TRAST, 09/01/2018. [facility], NM RENOGRAM W/ LASIX, 09/26/2017. . MEASUREMENTS: Right Kidney:__13.9 x 7.7 x 6.3 cm Left Kidney:__. Not visualized. FINDINGS: Right Kidney: Normal echogenicity and cortical thickness. There is a cystic lesion versus dilated low er pole collecting system, stable from the prior study. Trace perinephric fluid is present. No stone or mass is identified. Left Kidney: Left kidney is severely atrophic with severe cortical thinning documented on the a prior CT. No significant renal cortex is appreciated on today's ultrasound but there is severe hydronephro sis similar to the prior examination. Bladder: Decompressed. Not well evaluated. Other: There is a small volume of free fluid within the abdomen and pelvis. CONCLUSION: 1. Stable chronic severe left hydronephrosis from uncertain etiology. There is essentially no remain ing left renal tissue present likely due to long-standing chronic obstruction. 2. Stable cystic lesion versus dilated lower pole collecting system in the upper right kidney. This could represent a large renal sinus cyst or obstructed lower pole collecting system. There is no obst ruction in the upper pole collecting system. 3. Small volume of free fluid is present within the abdomen and pelvis. Electronically signed by: Fred Cleary MD Board Certified Radiologist 11/13/2018 3:25 PM EST
[2018-11-13] MEDS: Sod Chloride 0.9% Inj 1,000 ML IV.CONT SCH (16:34)
--- NOTE | 2018-11-13 17:45 | ECG ---
Date Performed: 11/12/2018 Time Performed: 09:14:06 PTAGE: 78 years EKG: It appears to be a 2:1 AV conduction with ventricular rate of 78. This is probably a SVT wi th 2:1 AV block Left axis deviation Right ventricular conduction disturbance Compared to previous tra cing, the rhythm is most likely the same rhythm with a more variable conduction on the previous jeimy ng. Clinical correlation strongly recommended. Abnormal ECG PREVIOUS TRACING : 11/09/2018 21.24 DOCTOR: Abelardo Warren Interpretating Date/Time 11/13/2018 17:43:36
--- NOTE | 2018-11-13 17:50 | ECG ---
Date Performed: 11/13/2018 Time Performed: 09:59:32 PTAGE: 78 years EKG: Probable idiojunctional bradycardia with rate of 38 Left axis deviation RBBB Nonspecific ST -T change Cannot exclude anterior HI of undetermined age Compared to previous tracing, the SVT with 2 :1 block has been replaced by what appears to be an idiojunctional or possibly idioventricular rhythm . The Q-waves anteriorly are new, and more prominent. The ST-T changes are also more prominent. Clini peggy correlation and follow up tracings recommended. Abnormal ECG PREVIOUS TRACING : 11/12/2018 09.14.06 DOCTOR: Abelardo Warren Interpretating Date/Time 11/13/2018 17:49:03
[2018-11-13] MEDS: Morphine Sulfate Inj 2 MG/ML Vial IV.PUSH PRN (20:45)
[2018-11-14] MEDS: Morphine Sulfate Inj 2 MG/ML Vial IV.PUSH PRN ×5 (00:16→21:51)
[2018-11-14] MEDS: Sod Chloride 0.9% Inj 1,000 ML IV.CONT SCH ×2 (00:22→21:54)
[2018-11-14 05:31] LABS: Baso % (Auto) 0.2 % (0.0-2.0); Hematocrit 40.9 % (39.0-51.0); Hemoglobin 13.5 gm/dL (13.0-17.0); Lymph # (Auto) 1.1 th/mm3 (1.0-4.8); Lymph % (Auto) 9.3 % (9.0-44.0); Mean Corpuscular HGB Conc 32.9 % (32.0-36.0); Mean Corpuscular Hemoglobin 31.2 pg (27.0-34.0); Mean Corpuscular Volume 94.7 fL (80.0-100.0); Mean Platelet Volume 11.1 fL (7.0-11.0); Mono % (Auto) 8.5 % (0.0-8.0); Neut # (Auto) 10.1 th/mm3 (1.8-7.7); Platelet Count 110 th/mm3 (150-450); Red Blood Count 4.32 mil/mm3 (4.50-5.90); Red Cell Distribution Width 16.6 % (11.6-17.2); White Blood Count 12.3 th/mm3 (4.0-11.0)
[2018-11-14 05:48] LABS: Albumin 3.6 g/dL (3.4-5.0); Calcium 8.4 mg/dL (8.5-10.1); Carbon Dioxide 22.2 meq/L (21.0-32.0); Magnesium 2.4 mg/dL (1.5-2.5); Potassium 5.8 meq/L (3.5-5.1)
[2018-11-14 06:02] LABS: Phosphorus 6.7 mg/dL (2.5-4.9)
[2018-11-14] MEDS ORDERED: Sodium Polystyrene Sulfonate/Sorbitol Liq 15 GM/60 ML UDC PO ONE ×2 (08:19→13:33)
[2018-11-14] MEDS: Flecainide 100 MG Tablet PO SCH ×2 (08:49→21:56)
[2018-11-14] MEDS: Furosemide 40 MG Tablet PO SCH (08:49)
[2018-11-14] MEDS: Budesonide-Formoterol 160/4.5 MCG 6 GM Inhaler INH SCH ×2 (08:50→21:55)
[2018-11-14] MEDS: Senna/Docusate Sodium 8.6/50 MG Tablet PO SCH ×2 (08:50→21:55)
--- NOTE | 2018-11-14 09:12 | US ---
EXAM DATE: 11/14/2018 8:36 AM EST AGE/SEX: 78 years / Male INDICATIONS: Right upper quadrant pain. CLINICAL DATA: This is the patient's initial encounter. Patient reports that signs and symptoms have been present for 1 month and indicates a pain score of 3/10. MEDICAL/SURGICAL HISTORY: . Asthma. Hypertension. Colon cancer. Varicose veins of bilateral ext remities. . S/P ablation of Atrial Fibrillation. [place] [facility] [place]. . MEASUREMENTS: Liver:__ 17.3 cm. Common Bile Duct:__ 5mm. FINDINGS: Liver: Ascites is present around the liver. Liver is small and nodular. No definite focal masses reynaldo dent. Portal Vein: Biphasic flow seen in portal vein. Common Duct: No intraluminal mass or stone visualized. Gallbladder: Surgically absent. Pancreas: Not well visualized. Right Kidney: Trace hydronephrosis without mass, described on the CT scan of Other: None. CONCLUSION: 1. Ascites with small nodular liver 2. Trace hydronephrosis on the right Electronically signed by: Evangelist Sanchez MD Board Certified Radiologist 11/14/2018 9:11 AM EST
--- NOTE | 2018-11-14 14:25 | P.CONNP ---
<ChristopherjaniaLisa nair - Last Filed: 11/14/18 13:55> History of Present Illness Service: Nephrology Consult date: 11/14/18 Requesting Physician: Reji Rodriguez Reason for Consult: Acute on chronic kidney disease Primary Care Provider: Ailyn Quarles MD History of Present Illness: This is a 78-year-old male with a past medical history of hypertension, hyperlipidemia, atrial fibrillation on Eliquis, congestive heart failure EF 40- 45 %, and h/o colon cancer. Presented to emergency room for chest pain, shortness of breath and lower extremity/scrotal edema x3 days on the . Nephrology is consulted for acute kidney injury on chronic kidney disease with a creatinine of 4.81 and potassium level of 5.8. Patients baseline creatinine is 1.4- 1.7, is not followed by nephrology outpatient. Diurectics have been stopped and patient is being gently hydrated. Has indwelling Oswald catheter with poor output, hematuria present. Has not had hematuria prior to insertion of catheter. Reports bladder spasms. Ultrasound with Left kidney severely atrophic. Right Kidney: Normal echogenicity and cortical thickness. There is a cystic lesion versus dilated lower pole collecting system, stable from the prior study. Trace perinephric fluid is present. No stone or mass is identified. Denies any shortness of breath, chest pain, nausea or vomiting. Has scrotal edema and poor appetite. PMFSH - History History Provided By: Patient - Medical History Medical History: Medical History (Last Reviewed 11/13/18 @ 10:22 by Baljeet Powell PT) Asthma Atrial fibrillation Colon cancer HTN (hypertension) Varicose veins of bilateral lower extremities with pain - Surgical History Surgical History: Surgical History (Last Reviewed 11/09/18 @ 15:33 by Chevy Perez MD) S/P ablation of atrial fibrillation - Tobacco History Second Hand Smoke Exposure: No Tobacco Use In Past 30 Days: No Smoking Status: Former smoker Tobacco Type: Cigarettes - Alcohol History How Often Do You Have a Drink Containing Alcohol: Monthly or less - Substance Use History Substance History: No History of Abuse - Travel History Recent Travel in the [place] Within the Last 8 Weeks: No Recent Travel Out of the Country Within the Last 8 Weeks: No - Immunization History Tetanus Immunization: Unsure Hx Influenza Vaccine This Season: Yes Medications and Allergies Allergies Allergy/AdvReac Type Severity Reaction Status Date / Time Penicillins Allergy Intermediate Rash Verified 11/09/18 15:07 Home Medications Medication Instructions Recorded Confirmed Type allopurinol 100 mg PO DAILY 08/07/18 11/09/18 History apixaban [Eliquis] 5 mg PO BID 08/07/18 11/09/18 History budesonide-formoterol [Symbicort] 2 puff INHALATION BID 08/07/18 11/09/18 History furosemide [Lasix] 20 mg PO DAILY PRN 08/07/18 11/09/18 History lisinopril 20 mg PO DAILY 08/07/18 11/09/18 History potassium chloride 10 meq PO DAILY PRN 08/07/18 11/09/18 History tamsulosin 0.4 mg PO DAILY 08/07/18 11/09/18 History Active Medications: Active Medications Acetaminophen (Tylenol) 650 mg PO Q4H PRN PRN Reason: Temp > 100.4 Al Hydroxide/Mg Hydroxide (Milk Of Magnesia Liq) 30 ml PO Q12H PRN PRN Reason: Mild Constipation Apixaban (Eliquis) 5 mg PO BID [facility] Last Admin: 11/14/18 08:49 Dose: 5 mg Bisacodyl (Dulcolax Supp) 10 mg RECTAL DAILY PRN PRN Reason: SEVERE CONSITIPATION Budesonide/Formoterol Fumarate (Symbicort 160/4.5 Mcg Inh) 2 puff INH BID [facility] Last Admin: 11/14/18 08:50 Dose: Not Given Flecainide Acetate (Tambocor) 50 mg PO BID [facility] Last Admin: 11/14/18 08:49 Dose: Not Given Furosemide (Lasix) 40 mg PO DAILY [facility] Last Admin: 11/14/18 08:49 Dose: 40 mg Sodium Chloride (Ns Inj) 1,000 mls @ 50 mls/hr IV.CONT .Q20H [facility] Last Infusion: 11/14/18 10:24 Dose: Infused Aztreonam 1,000 mg/ Sodium (Chloride) 100 mls @ 200 mls/hr IV.SIG Q8H [facility] Last Infusion: 11/14/18 13:09 Dose: Infused Lactulose (Lactulose Liq) 30 ml PO DAILY PRN PRN Reason: SEVERE CONSITIPATION Morphine Sulfate (Morphine Inj) 2 mg IV.PUSH Q4H PRN PRN Reason: PAIN 6-10 Last Admin: 11/14/18 08:52 Dose: 2 mg Nitroglycerin (Nitro-Bid 2% Oint) 0.5 inch TOPICAL Q6HR PRN PRN Reason: CHEST PAIN Ondansetron HCl (Zofran Inj) 4 mg IV.PUSH Q6H PRN PRN Reason: NAUSEA OR VOMITING Senna/Docusate Sodium (Amairani-Colace) 1 tab PO BID [facility] Last Admin: 11/14/18 08:50 Dose: Not Given Sennosides (Senokot) 17.2 mg PO Q12H PRN PRN Reason: Moderate Constipation Sodium Chloride (Ns Flush) 2 ml IV.FLUSH BID [facility] Last Admin: 11/14/18 08:50 Dose: Not Given Sodium Chloride (Ns Flush) 2 ml IV.FLUSH PRN PRN PRN Reason: FLUSH AFTER USING IV ACCESS Sodium Polystyrene Sulfonate (Kayexalate Liq) 15 gm PO ONCE ONE Stop: 11/14/18 13:34 Tamsulosin HCl (Flomax) 0.4 mg PO DAILY [facility] Last Admin: 11/14/18 08:49 Dose: 0.4 mg Exam Vital signs: Vital Signs 11/13/18 14:00 11/13/18 15:00 11/13/18 16:00 Temperature Pulse Rate 38 L 36 L 36 L Respiratory Rate 18 Blood Pressure 88/60 L Pulse Oximetry 97 11/13/18 17:00 11/13/18 18:00 11/13/18 19:00 Temperature Pulse Rate 32 L 34 L 46 L Respiratory Rate Blood Pressure Pulse Oximetry 11/13/18 20:00 11/13/18 21:00 11/13/18 22:00 Temperature 97.5 F L Pulse Rate 68 64 64 Respiratory Rate 18 Blood Pressure 104/70 Pulse Oximetry 98 11/13/18 23:00 11/14/18 00:00 11/14/18 01:00 Temperature Pulse Rate 46 L 70 37 L Respiratory Rate 20 Blood Pressure 109/74 Pulse Oximetry 93 L 11/14/18 02:00 11/14/18 03:00 11/14/18 04:00 Temperature 95.8 F L Pulse Rate 38 L 36 L 36 L Respiratory Rate 20 Blood Pressure 107/60 Pulse Oximetry 94 L 11/14/18 05:00 11/14/18 06:00 11/14/18 07:00 Temperature Pulse Rate 36 L 34 L 48 L Respiratory Rate Blood Pressure Pulse Oximetry 11/14/18 08:00 11/14/18 09:00 11/14/18 09:43 Temperature 97.5 F L Pulse Rate 56 L 52 L 48 L Respiratory Rate 16 16 Blood Pressure 104/72 Pulse Oximetry 97 11/14/18 10:54 11/14/18 12:00 11/14/18 12:16 Temperature 97.6 F Pulse Rate 47 L 47 L 48 L Respiratory Rate 18 Blood Pressure 107/76 Pulse Oximetry 98 Intake & Output 11/13/18 11/14/18 11/14/18 18:59 06:59 18:59 Intake Total 650 / 650 440 / 440 1100 / 1100 Output Total 0 / 0 Balance 650 / 650 420 / 420 1100 / 1100 Weight 74.4 kg Intake: IV 250 / 250 200 / 200 1100 / 1100 NS Inj 1,000 ML @ 50 mls/hr IV. 1000 / 1000 CONT .Q20H [facility] Rx#:[id number] Azactam Inj 1,000 MG In NS Inj 200 / 200 100 / 100 100 ML @ 200 mls/hr IV.SIG Q8H [facility] Rx#:[id number] NS Inj 250 ML @ Wide Open IV. 250 / 250 SIG BOL[facility] ONE Rx#:[id number] Oral 400 / 400 240 / 240 Output: Urine 0 / 0 Urine Amount (Catheter) Indwelling Urethral Catheter Other: Date of Last Bowel Movement 11/12/18 Narrative: GENERAL: Alert and oriented. SKIN: Warm and dry. NECK: Supple, trachea midline. No JVD. CARDIOVASCULAR: Regular rate and rhythm without murmurs, gallops, or rubs. RESPIRATORY: Breath sounds equal bilaterally. No accessory muscle use. GASTROINTESTINAL: Abdomen soft, non-tender, nondistended. +BS GENITOURINARY: Indwelling Oswald catheter with hematuria. Scrotal edema. MUSCULOSKELETAL: No cyanosis, Mild lower extremity edema. BACK: Nontender without obvious deformity. No CVA tenderness. Results - Lab Results 11/14/18 03:33 11/14/18 03:33 Most recent lab results Calcium 8.4 mg/dL (8.5-10.1) L 11/14/18 03:33 Phosphorus 6.7 mg/dL (2.5-4.9) H D 11/14/18 03:33 Magnesium 2.4 mg/dL (1.5-2.5) 11/14/18 03:33 - Image Kidney/bladder ultrasound: report reviewed Assessment and Plan - Assessment (1) Acute kidney injury superimposed on chronic kidney disease Code(s): N17.9 - Acute kidney failure, unspecified; N18.9 - Chronic kidney disease, unspecified Status: Acute (2) Atrial fibrillation Code(s): I48.91 - Unspecified atrial fibrillation Status: Acute Plan: On eliquis. (3) Anasarca Code(s): R60.1 - Generalized edema Status: Acute (4) CHF (congestive heart failure) Code(s): I50.9 - Heart failure, unspecified Status: Acute - Plan Acute kidney injury on chronic kidney disease with a creatinine of 4.81, potassium level of 5.8 and Oliguric. Creatinine started to dramatically increase on the . AALIYAH possibly prerenal VS ATN from over diuresis. Blood pressure was also noted to be low on the with SBP 70's to 90's so hypotension could have also be a possible cause of AALIYAH Patients baseline creatinine is 1.4- 1.7. Ultrasound with Left kidney severely atrophic. Right Kidney: Normal echogenicity and cortical thickness. There is a cystic lesion versus dilated lower pole collecting system, stable from the prior study. Trace perinephric fluid is present. No stone or mass is identified. Avoid nephrotoxins including IV contrast and NSAIDS. Has indwelling Oswald catheter has hematuria and spasms. Bladder scan was done with 120 ml remaining in bladder, urology is consulted. Obstruction could also be making renal function worse. Hyperkalemia at 5.8, Kayexalate given recheck ordered and pending. Patient is being gently hydrated, recommend to continue. If kidney function does not improve might possibly need Hemodialysis. Serology, UA, and urine studies ordered. <Dawn Sharma - Last Filed: 11/14/18 16:06> History of Present Illness Primary Care Provider: Ailyn Quarles MD [facility] - Medical History Medical History: Medical History (Last Reviewed 11/13/18 @ 10:22 by Baljeet S Kapelka, PT) Asthma Atrial fibrillation Colon cancer HTN (hypertension) Varicose veins of bilateral lower extremities with pain - Surgical History Surgical History: Surgical History (Last Reviewed 11/09/18 @ 15:33 by Chevy Perez MD) S/P ablation of atrial fibrillation Medications and Allergies Active Medications: Active Medications Acetaminophen (Tylenol) 650 mg PO Q4H PRN PRN Reason: Temp > 100.4 Al Hydroxide/Mg Hydroxide (Milk Of Magnesia Liq) 30 ml PO Q12H PRN PRN Reason: Mild Constipation Bisacodyl (Dulcolax Supp) 10 mg RECTAL DAILY PRN PRN Reason: SEVERE CONSITIPATION Budesonide/Formoterol Fumarate (Symbicort 160/4.5 Mcg Inh) 2 puff INH BID [facility] Last Admin: 11/14/18 08:50 Dose: Not Given Flecainide Acetate (Tambocor) 50 mg PO BID [facility] Last Admin: 11/14/18 08:49 Dose: Not Given Furosemide (Lasix) 40 mg PO DAILY [facility] Last Admin: 11/14/18 08:49 Dose: 40 mg Sodium Chloride (Ns Inj) 1,000 mls @ 50 mls/hr IV.CONT .Q20H [facility] Last Infusion: 11/14/18 10:24 Dose: Infused Aztreonam 1,000 mg/ Sodium (Chloride) 100 mls @ 200 mls/hr IV.SIG Q8H [facility] Last Infusion: 11/14/18 13:09 Dose: Infused Lactulose (Lactulose Liq) 30 ml PO DAILY PRN PRN Reason: SEVERE CONSITIPATION Morphine Sulfate (Morphine Inj) 2 mg IV.PUSH Q4H PRN PRN Reason: PAIN 6-10 Last Admin: 11/14/18 14:22 Dose: 2 mg Nitroglycerin (Nitro-Bid 2% Oint) 0.5 inch TOPICAL Q6HR PRN PRN Reason: CHEST PAIN Ondansetron HCl (Zofran Inj) 4 mg IV.PUSH Q6H PRN PRN Reason: NAUSEA OR VOMITING Senna/Docusate Sodium (Amairani-Colace) 1 tab PO BID [facility] Last Admin: 11/14/18 08:50 Dose: Not Given Sennosides (Senokot) 17.2 mg PO Q12H PRN PRN Reason: Moderate Constipation Sodium Chloride (Ns Flush) 2 ml IV.FLUSH BID [facility] Last Admin: 11/14/18 08:50 Dose: Not Given Sodium Chloride (Ns Flush) 2 ml IV.FLUSH PRN PRN PRN Reason: FLUSH AFTER USING IV ACCESS Tamsulosin HCl (Flomax) 0.4 mg PO DAILY [facility] Last Admin: 11/14/18 08:49 Dose: 0.4 mg Exam Vital signs: Vital Signs 11/13/18 17:00 11/13/18 18:00 11/13/18 19:00 Temperature Pulse Rate 32 L 34 L 46 L Respiratory Rate Blood Pressure Pulse Oximetry 11/13/18 20:00 11/13/18 21:00 11/13/18 22:00 Temperature 97.5 F L Pulse Rate 68 64 64 Respiratory Rate 18 Blood Pressure 104/70 Pulse Oximetry 98 11/13/18 23:00 11/14/18 00:00 11/14/18 01:00 Temperature Pulse Rate 46 L 70 37 L Respiratory Rate 20 Blood Pressure 109/74 Pulse Oximetry 93 L 11/14/18 02:00 11/14/18 03:00 11/14/18 04:00 Temperature 95.8 F L Pulse Rate 38 L 36 L 36 L Respiratory Rate 20 Blood Pressure 107/60 Pulse Oximetry 94 L 11/14/18 05:00 11/14/18 06:00 11/14/18 07:00 Temperature Pulse Rate 36 L 34 L 48 L Respiratory Rate Blood Pressure Pulse Oximetry 11/14/18 08:00 11/14/18 09:00 11/14/18 09:43 Temperature 97.5 F L Pulse Rate 56 L 52 L 48 L Respiratory Rate 16 16 Blood Pressure 104/72 Pulse Oximetry 97 11/14/18 10:54 11/14/18 12:00 11/14/18 12:16 Temperature 97.6 F Pulse Rate 47 L 47 L 48 L Respiratory Rate 18 Blood Pressure 107/76 Pulse Oximetry 98 11/14/18 14:00 11/14/18 14:45 11/14/18 15:00 Temperature Pulse Rate 51 L 53 L Respiratory Rate 22 Blood Pressure Pulse Oximetry 11/14/18 15:31 Temperature 97.7 F Pulse Rate 59 L Respiratory Rate 18 Blood Pressure 90/74 L Pulse Oximetry 96 Intake & Output 11/13/18 11/14/18 11/14/18 18:59 06:59 18:59 Intake Total 650 / 650 440 / 440 1100 / 1100 Output Total 0 / 0 20 / 20 Balance 650 / 650 420 / 420 1100 / 1100 Weight 74.4 kg Intake: IV 250 / 250 200 / 200 1100 / 1100 NS Inj 1,000 ML @ 50 mls/hr IV. 1000 / 1000 CONT .Q20H [facility] Rx#:[id number] Azactam Inj 1,000 MG In NS Inj 200 / 200 100 / 100 100 ML @ 200 mls/hr IV.SIG Q8H [facility] Rx#:[id number] NS Inj 250 ML @ Wide Open IV. 250 / 250 SIG BOLUS ONE Rx#:[id number] Oral 400 / 400 240 / 240 Output: Urine 0 / 0 Urine Amount (Catheter) Indwelling Urethral Catheter Other: Date of Last Bowel Movement 11/12/18 Results - Lab Results 11/14/18 03:33 11/14/18 14:08 Most recent lab results Calcium 8.1 mg/dL (8.5-10.1) L 11/14/18 14:08 Phosphorus 6.7 mg/dL (2.5-4.9) H D 11/14/18 03:33 Magnesium 2.4 mg/dL (1.5-2.5) 11/14/18 03:33 Assessment and Plan - Assessment (1) Acute kidney injury superimposed on chronic kidney disease Code(s): N17.9 - Acute kidney failure, unspecified; N18.9 - Chronic kidney disease, unspecified Status: Acute (2) Atrial fibrillation Code(s): I48.91 - Unspecified atrial fibrillation Status: Acute (3) Anasarca Code(s): R60.1 - Generalized edema Status: Acute (4) CHF (congestive heart failure) Code(s): I50.9 - Heart failure, unspecified Status: Acute - Plan Patient seen and examined, agree with above. Patient has chronic kidney disease and single functioning kidney, now develop AALIYAH. Has most likely ATN due to Hypotension. Give NaHco3 and Kayexalate for high K. Lasix infusion. If not better, may need HD. D/W the patient and in detail and explained. Dr. Graham will cover for the weekend.
--- NOTE | 2018-11-14 14:33 | P.PNIM ---
Subjective Interval history: Patient says he is feeling right. Denies any shortness of breath. Denies chest pain. Reports some intermittent pain from Oswald catheter. Urology in the room. Physical Exam Vital signs: Vital Signs 11/13/18 15:00 11/13/18 16:00 11/13/18 17:00 Temperature Pulse Rate 36 L 36 L 32 L Respiratory Rate 18 Blood Pressure 88/60 L Pulse Oximetry 97 11/13/18 18:00 11/13/18 19:00 11/13/18 20:00 Temperature 97.5 F L Pulse Rate 34 L 46 L 68 Respiratory Rate 18 Blood Pressure 104/70 Pulse Oximetry 98 11/13/18 21:00 11/13/18 22:00 11/13/18 23:00 Temperature Pulse Rate 64 64 46 L Respiratory Rate Blood Pressure Pulse Oximetry 11/14/18 00:00 11/14/18 01:00 11/14/18 02:00 Temperature Pulse Rate 70 37 L 38 L Respiratory Rate 20 Blood Pressure 109/74 Pulse Oximetry 93 L 11/14/18 03:00 11/14/18 04:00 11/14/18 05:00 Temperature 95.8 F L Pulse Rate 36 L 36 L 36 L Respiratory Rate 20 Blood Pressure 107/60 Pulse Oximetry 94 L 11/14/18 06:00 11/14/18 07:00 11/14/18 08:00 Temperature 97.5 F L Pulse Rate 34 L 48 L 56 L Respiratory Rate 16 Blood Pressure 104/72 Pulse Oximetry 97 11/14/18 09:00 11/14/18 09:43 11/14/18 10:54 Temperature Pulse Rate 52 L 48 L 47 L Respiratory Rate 16 Blood Pressure Pulse Oximetry 11/14/18 12:00 11/14/18 12:16 11/14/18 14:00 Temperature 97.6 F Pulse Rate 47 L 48 L 51 L Respiratory Rate 18 Blood Pressure 107/76 Pulse Oximetry 98 Intake & Output 11/13/18 11/14/18 11/14/18 18:59 06:59 18:59 Intake Total 650 / 650 440 / 440 1100 / 1100 Output Total 0 / 0 20 / 20 Balance 650 / 650 420 / 420 1100 / 1100 Weight 74.4 kg Intake: IV 250 / 250 200 / 200 1100 / 1100 NS Inj 1,000 ML @ 50 mls/hr IV. 1000 / 1000 CONT .Q20H [facility] Rx#:[id number] Azactam Inj 1,000 MG In NS Inj 200 / 200 100 / 100 100 ML @ 200 mls/hr IV.SIG Q8H [facility] Rx#:[id number] NS Inj 250 ML @ Wide Open IV. 250 / 250 SIG BOLUS ONE Rx#:[id number] Oral 400 / 400 240 / 240 Output: Urine 0 / 0 Urine Amount (Catheter) Indwelling Urethral Catheter Other: Date of Last Bowel Movement 11/12/18 Narrative: GENERAL: Patient sitting up in bed. Appears comfortable. SKIN: Warm and dry. HEAD: Normocephalic. EYES: No scleral icterus. No injection or drainage. NECK: Supple, trachea midline. No JVD. CARDIOVASCULAR: Today patient was bradycardic in the 30s. Today he is bradycardic in the 50s. And rhythm without murmurs, gallops, or rubs. RESPIRATORY: Breath sounds equal bilaterally. No accessory muscle use. GASTROINTESTINAL: Abdomen soft, non-tender, nondistended. MUSCULOSKELETAL: No cyanosis. Warm peripheral edema. No peripheral erythema. BACK: Nontender without obvious deformity. No CVA tenderness. - Urinary Catheter Management Indwelling Urethral Catheter Cath placed during this visit: yes, but has since been removed by the nurse Reason for continuing: Hourly intake/output Insertion date: 11/13/18 Insertion time: 16:00 Removal date: 11/13/18 Removal time: 15:50 Results - Labs CBC & Chem 7: 11/14/18 03:33 11/14/18 03:33 Laboratory Results - last 24 hr 11/13/18 11/13/18 11/13/18 13:03 13:03 13:03 WBC RBC Hgb Hct MCV MCH MCHC RDW Plt Count MPV Neut % (Auto) Lymph % (Auto) [place] % (Auto) Eos % (Auto) Baso % (Auto) Neut # (Auto) Lymph # (Auto) [place] # (Auto) Eos # (Auto) Baso # (Auto) WBC Differential Differential Comment Sodium 136 Potassium 5.3 H D Chloride 102 Carbon Dioxide 23.6 Anion Gap 10 BUN 61 H Creatinine 3.96 H Estimated GFR 15 L Random Glucose 112 H Calcium 8.7 Phosphorus Magnesium Total Bilirubin 3.2 H Cancelled Cancelled Direct Bilirubin 1.4 H Cancelled Cancelled Indirect Bilirubin 1.8 H Cancelled Cancelled AST 815 H Cancelled ALT 596 H Cancelled Alkaline Phosphatase 194 H Cancelled Total Creatine Kinase B-Natriuretic Peptide Total Protein 6.8 Cancelled Albumin 3.4 Cancelled 11/13/18 11/13/18 11/14/18 13:03 20:06 03:33 WBC 12.3 H RBC 4.32 L Hgb 13.5 Hct 40.9 MCV 94.7 MCH 31.2 MCHC 32.9 RDW 16.6 Plt Count 110 L MPV 11.1 H Neut % (Auto) 82.0 H Lymph % (Auto) 9.3 [place] % (Auto) 8.5 H Eos % (Auto) 0.0 Baso % (Auto) 0.2 Neut # (Auto) 10.1 H Lymph # (Auto) 1.1 [place] # (Auto) 1.0 H Eos # (Auto) 0.0 Baso # (Auto) 0.0 WBC Differential . Differential Comment Auto diff final Sodium Potassium Chloride Carbon Dioxide Anion Gap BUN Creatinine Estimated GFR Random Glucose Calcium Phosphorus Magnesium Total Bilirubin Direct Bilirubin Indirect Bilirubin AST ALT Alkaline Phosphatase Total Creatine Kinase 54 B-Natriuretic Peptide 441 H Total Protein Albumin 11/14/18 03:33 WBC RBC Hgb Hct MCV MCH MCHC RDW Plt Count MPV Neut % (Auto) Lymph % (Auto) [place] % (Auto) Eos % (Auto) Baso % (Auto) Neut # (Auto) Lymph # (Auto) [place] # (Auto) Eos # (Auto) Baso # (Auto) WBC Differential Differential Comment Sodium 134 L Potassium 5.8 H Chloride 100 Carbon Dioxide 22.2 Anion Gap 12 BUN 71 H Creatinine 4.81 H Estimated GFR 12 L Random Glucose 106 Calcium 8.4 L Phosphorus 6.7 H D Magnesium 2.4 Total Bilirubin 2.6 H Direct Bilirubin 1.2 H Indirect Bilirubin 1.4 H AST 473 H ALT 526 H Alkaline Phosphatase 185 H Total Creatine Kinase B-Natriuretic Peptide Total Protein 7.0 Albumin 3.6 - Imaging Impressions Abdomen/Bladder Ultrasound 11/13/18 00:00 CONCLUSION: 1. Stable chronic severe left hydronephrosis from uncertain etiology. There is essentially no remaining left renal tissue present likely due to long-standing chronic obstruction. 2. Stable cystic lesion versus dilated lower pole collecting system in the upper right kidney. This could represent a large renal sinus cyst or obstructed lower pole collecting system. There is no obstruction in the upper pole collecting system. 3. Small volume of free fluid is present within the abdomen and pelvis. Gallbladder Ultrasound 11/14/18 00:00 CONCLUSION: 1. Ascites with small nodular liver 2. Trace hydronephrosis on the right Assessment and Plan - Assessment (1) V-tach Code(s): I47.2 - Ventricular tachycardia Status: Acute (2) CHF (congestive heart failure) Code(s): I50.9 - Heart failure, unspecified Status: Acute (3) Chest pain Code(s): R07.9 - Chest pain, unspecified Status: Acute (4) Elevated troponin Code(s): R74.8 - Abnormal levels of other serum enzymes Status: Acute - Plan //V-tach: //History of atrial fibrillation C/o palpitations while in ER, noted to have 5-beat run of V. tach w/ spontaneous resolution, Trop 0.23, possibly related to episode of dysrhythmia, however will check serial cardiac enzymes to eval for underlying ischemia. Metoprolol, monitor on telemetry, consult Cardiology for further recommendations. = Continue to monitor on telemetry. Follow-up cardiology recommendations. = 11/12. Patient started on flecainide yesterday. Continue management as per cardiology. = 11/13. Patient with bradycardia today. Metoprolol discontinued by cardiology. On decreased dose of flecainide. He appreciate cardiology assistance. =11/14. Heart rate increasing, now in the 50s. Appreciate cardiology assistance. Continue to monitor. Will hold Eliquis due to renal failure, as well as hematuria. Management as per cardiology. //Oliguric acute kidney injury on chronic kidney disease stage III. -Creatinine 3.96 from 1.7 yesterday. Likely prerenal secondary to bradycardia. I have notified cardiology. = We will check renal ultrasound. Place Oswald. Consult nephrology. Patient may have been over diuresed. BNP 429 yesterday however. Will start on IV fluids and monitor closely. = 11/14. Worsening creatinine 4.8. Suspect prerenal versus possible obstruction. Nephrology following. Urology following. Appreciate assistance. //Hyperkalemia. Potassium 5.8. Secondary to renal failure. Kayexalate given. Recheck pending. //Transaminitis. AST, ALT 800s, 500 yesterday. Improving slightly today. Likely shock liver from bradycardia. Again, improving. Ultrasound with small nodular liver, no biliary ductal dilation. Continue //Chest Pain: intermittent, currently chest pain free, NTG/Morphine as needed, Cardio eval = Resolved. Follow-up cardiology recommendations. -Appreciate cardiology assistance. Follow-up recommendations. = Appears to have resolved //Hematuria. Willis secondary to Oswald. Urology following. Appreciate assistance. Urinalysis pending. With Eliquis. //Elevated Trop: Trop 0.23 as above, possibly due to arrhythmia, will check serial cardiac enzymes for trend, Cardiology for further eval/intervention. = Troponin stable at 0.24. Chest pain resolved. Cardiology following. Appreciate assistance. //CHF: Acute on Chronic. Systolic. LASHAY 08/07/18 w/ EF 40-45%, +significant lower extremity/scrotal edema. Doppler LE negative for DVT. Scrotal US no significant findings. Continue w/ diuresis-caution w/ renal function, monitor I /O. =Continue IV Lasix. Cardiology following. Appreciate assistance. =/19. Fluid overload improving. Will place patient on fluid restrictions. Continue p.o. Lasix. = 11/13. Renal failure. Possibly secondary to overdiuresis versus bradycardia. Will start on IV fluids. = 11/14. Continues on IV fluids due to acute kidney injury. BNP 441 on 11/13. Continue to monitor. //DVT Prophylaxis: Eliquis Discharge Planning: Pending cardiology clearance. -Follow-up PT evaluation. = Patient with acute kidney injury. Likely to be in the hospital for at least the next several days. = We will need cardiology, nephrology, urology clearance.
[2018-11-14 14:54] LABS: Albumin 3.4 g/dL (3.4-5.0); Anion Gap 13 meq/L (5-15); Aspartate Aminotransferase 331 U/L (15-37); Blood Urea Nitrogen 83 mg/dL (7-18); Calcium 8.1 mg/dL (8.5-10.1); Carbon Dioxide 19.5 meq/L (21.0-32.0); Chloride 101 meq/L (98-107); Glomerular Filtration Rate 10 mL/min (>89); Glucose,Random 139 mg/dL (74-106); Potassium 5.5 meq/L (3.5-5.1); Sodium 133 meq/L (136-145)
[2018-11-14 14:56] LABS: Alanine Aminotransferase 471 U/L (12-78)
[2018-11-14 15:00] LABS: Alkaline Phosphatase 184 U/L (45-117); Total Protein 6.9 g/dL (6.4-8.2)
--- NOTE | 2018-11-14 15:24 | P.CONURO ---
History of Present Illness Service: urology Consult date: 11/14/18 Requesting Physician: Reji Rodriguez Reason for Consult: Dysuria Primary Care Provider: Ailyn Quarles MD History of Present Illness: 78 patient with history HTN, HLD, afib, CHF, and history of colon CA presented to the ER for chest pain, SOB, and lower extremity/scrotal edema. Patient was found to have ascites and had a run of v-tach which has now resolved. His kidney function has also declined from creatinine 1.47 and GFR 49 to creatinine over 4 and GFR 12. Therefore an attempt was made to pass a catheter though it was unsuccessful. Patient reports he experienced some dribbling of gross hematuria and dysuria after this. He reports he usually has weak stream but was able to urinate, however only small amounts were voided yesterday. Urology was consulted for dysuria and difficulty placing catheter. At present a catheter has been successfully placed by primary team. Patient currently has gross hematuria likely from traumatic catheterization. Renal US done prior to catheterization showed no urinary retention. No hydronephrosis or urinary obstruction noted on CT. Currently he denies abdominal or flank pain, chills, fever. Review of Systems All other systems reviewed negative except as stated in HPI PMFSH - History History Provided By: Patient - Medical History Medical History: Medical History (Last Reviewed 11/13/18 @ 10:22 by Baljeet Powell PT) Asthma Atrial fibrillation Colon cancer HTN (hypertension) Varicose veins of bilateral lower extremities with pain - Surgical History Surgical History: Surgical History (Last Reviewed 11/09/18 @ 15:33 by Chevy Perez MD) S/P ablation of atrial fibrillation - Tobacco History Second Hand Smoke Exposure: No Tobacco Use In Past 30 Days: No Smoking Status: Former smoker Tobacco Type: Cigarettes - Alcohol History How Often Do You Have a Drink Containing Alcohol: Monthly or less - Substance Use History Substance History: No History of Abuse - Travel History Recent Travel in the [place] Within the Last 8 Weeks: No Recent Travel Out of the Country Within the Last 8 Weeks: No - Immunization History Tetanus Immunization: Unsure Hx Influenza Vaccine This Season: Yes Medications and Allergies Active Medications: Active Medications Acetaminophen (Tylenol) 650 mg PO Q4H PRN PRN Reason: Temp > 100.4 Al Hydroxide/Mg Hydroxide (Milk Of Magnesia Liq) 30 ml PO Q12H PRN PRN Reason: Mild Constipation Bisacodyl (Dulcolax Supp) 10 mg RECTAL DAILY PRN PRN Reason: SEVERE CONSITIPATION Budesonide/Formoterol Fumarate (Symbicort 160/4.5 Mcg Inh) 2 puff INH BID [facility] Last Admin: 11/14/18 08:50 Dose: Not Given Flecainide Acetate (Tambocor) 50 mg PO BID [facility] Last Admin: 11/14/18 08:49 Dose: Not Given Furosemide (Lasix) 40 mg PO DAILY [facility] Last Admin: 11/14/18 08:49 Dose: 40 mg Sodium Chloride (Ns Inj) 1,000 mls @ 50 mls/hr IV.CONT .Q20H [facility] Last Infusion: 11/14/18 10:24 Dose: Infused Aztreonam 1,000 mg/ Sodium (Chloride) 100 mls @ 200 mls/hr IV.SIG Q8H [facility] Last Infusion: 11/14/18 13:09 Dose: Infused Lactulose (Lactulose Liq) 30 ml PO DAILY PRN PRN Reason: SEVERE CONSITIPATION Morphine Sulfate (Morphine Inj) 2 mg IV.PUSH Q4H PRN PRN Reason: PAIN 6-10 Last Admin: 11/14/18 14:22 Dose: 2 mg Nitroglycerin (Nitro-Bid 2% Oint) 0.5 inch TOPICAL Q6HR PRN PRN Reason: CHEST PAIN Ondansetron HCl (Zofran Inj) 4 mg IV.PUSH Q6H PRN PRN Reason: NAUSEA OR VOMITING Senna/Docusate Sodium (Amairani-Colace) 1 tab PO BID [facility] Last Admin: 11/14/18 08:50 Dose: Not Given Sennosides (Senokot) 17.2 mg PO Q12H PRN PRN Reason: Moderate Constipation Sodium Chloride (Ns Flush) 2 ml IV.FLUSH BID [facility] Last Admin: 11/14/18 08:50 Dose: Not Given Sodium Chloride (Ns Flush) 2 ml IV.FLUSH PRN PRN PRN Reason: FLUSH AFTER USING IV ACCESS Tamsulosin HCl (Flomax) 0.4 mg PO DAILY [facility] Last Admin: 11/14/18 08:49 Dose: 0.4 mg Allergies Allergy/AdvReac Type Severity Reaction Status Date / Time Penicillins Allergy Intermediate Rash Verified 11/09/18 15:07 Home Medications Medication Instructions Recorded Confirmed Type allopurinol 100 mg PO DAILY 08/07/18 11/09/18 History apixaban [Eliquis] 5 mg PO BID 08/07/18 11/09/18 History budesonide-formoterol [Symbicort] 2 puff INHALATION BID 08/07/18 11/09/18 History furosemide [Lasix] 20 mg PO DAILY PRN 08/07/18 11/09/18 History lisinopril 20 mg PO DAILY 08/07/18 11/09/18 History potassium chloride 10 meq PO DAILY PRN 08/07/18 11/09/18 History tamsulosin 0.4 mg PO DAILY 08/07/18 11/09/18 History Physical Exam Vital Signs - 24 hr 11/13/18 16:00 11/13/18 17:00 11/13/18 18:00 Temperature Pulse Rate 36 L 32 L 34 L Respiratory Rate Blood Pressure Pulse Oximetry 11/13/18 19:00 11/13/18 20:00 11/13/18 21:00 Temperature 97.5 F L Pulse Rate 46 L 68 64 Respiratory Rate 18 Blood Pressure 104/70 Pulse Oximetry 98 11/13/18 22:00 11/13/18 23:00 11/14/18 00:00 Temperature Pulse Rate 64 46 L 70 Respiratory Rate 20 Blood Pressure 109/74 Pulse Oximetry 93 L 11/14/18 01:00 11/14/18 02:00 11/14/18 03:00 Temperature Pulse Rate 37 L 38 L 36 L Respiratory Rate Blood Pressure Pulse Oximetry 11/14/18 04:00 11/14/18 05:00 11/14/18 06:00 Temperature 95.8 F L Pulse Rate 36 L 36 L 34 L Respiratory Rate 20 Blood Pressure 107/60 Pulse Oximetry 94 L 11/14/18 07:00 11/14/18 08:00 11/14/18 09:00 Temperature 97.5 F L Pulse Rate 48 L 56 L 52 L Respiratory Rate 16 16 Blood Pressure 104/72 Pulse Oximetry 97 11/14/18 09:43 11/14/18 10:54 11/14/18 12:00 Temperature 97.6 F Pulse Rate 48 L 47 L 47 L Respiratory Rate 18 Blood Pressure 107/76 Pulse Oximetry 98 11/14/18 12:16 11/14/18 14:00 11/14/18 14:45 Temperature Pulse Rate 48 L 51 L Respiratory Rate 22 Blood Pressure Pulse Oximetry Physical Exam: GENERAL: This is a well-nourished, well-developed patient, in no apparent distress. SKIN: No rashes, ecchymoses or lesions. Cool and dry. HEAD: Atraumatic. Normocephalic. CARDIOVASCULAR: Regular rate and rhythm without murmurs, gallops, or rubs. RESPIRATORY: Clear to auscultation. Breath sounds equal bilaterally. No wheezes , rales, or rhonchi. GASTROINTESTINAL: Abdomen soft, non-tender, nondistended. GENITOURINARY: Oswald catheter in place draining bright red urine MUSCULOSKELETAL: Extremities without clubbing, cyanosis, or edema. NEUROLOGICAL: Awake and alert. Lab results reviewed: Yes Laboratory Results - last 24 hr 11/13/18 11/13/18 11/14/18 13:03 20:06 03:33 WBC 12.3 H RBC 4.32 L Hgb 13.5 Hct 40.9 MCV 94.7 MCH 31.2 MCHC 32.9 RDW 16.6 Plt Count 110 L MPV 11.1 H Neut % (Auto) 82.0 H Lymph % (Auto) 9.3 [place] % (Auto) 8.5 H Eos % (Auto) 0.0 Baso % (Auto) 0.2 Neut # (Auto) 10.1 H Lymph # (Auto) 1.1 [place] # (Auto) 1.0 H Eos # (Auto) 0.0 Baso # (Auto) 0.0 WBC Differential . Differential Comment Auto diff final Sodium Potassium Chloride Carbon Dioxide Anion Gap BUN Creatinine Estimated GFR Random Glucose Calcium Phosphorus Magnesium Total Bilirubin Direct Bilirubin Indirect Bilirubin AST ALT Alkaline Phosphatase Total Creatine Kinase 54 B-Natriuretic Peptide 441 H Total Protein Albumin 11/14/18 11/14/18 03:33 14:08 WBC RBC Hgb Hct MCV MCH MCHC RDW Plt Count MPV Neut % (Auto) Lymph % (Auto) [place] % (Auto) Eos % (Auto) Baso % (Auto) Neut # (Auto) Lymph # (Auto) [place] # (Auto) Eos # (Auto) Baso # (Auto) WBC Differential Differential Comment Sodium 134 L 133 L Potassium 5.8 H 5.5 H Chloride 100 101 Carbon Dioxide 22.2 19.5 L Anion Gap 12 13 BUN 71 H 83 H Creatinine 4.81 H 5.34 H Estimated GFR 12 L 10 L Random Glucose 106 139 H Calcium 8.4 L 8.1 L Phosphorus 6.7 H D Magnesium 2.4 Total Bilirubin 2.6 H 2.3 H Direct Bilirubin 1.2 H Indirect Bilirubin 1.4 H AST 473 H 331 H ALT 526 H 471 H Alkaline Phosphatase 185 H 184 H Total Creatine Kinase B-Natriuretic Peptide Total Protein 7.0 6.9 Albumin 3.6 3.4 Result Diagrams: 11/14/18 03:33 11/14/18 14:08 Personally reviewed images: Yes Imaging: ITS Impressions Abdomen/Pelvis CT 11/09/18 15:25 CONCLUSION: 1. Increasing size of the ascites since the prior examination with haziness of the mesentery particularly left side not present previously could be due to passive congestion, however peritoneal carcinomatosis should be excluded. 2. Nonfunctioning left kidney and dilated right renal pelvis chronic in nature and not changed. Scrotum Ultrasound 11/09/18 15:25 CONCLUSION: 1. Small bilateral hydroceles and there is epididymal head cyst on the right. Venous Doppler Study 11/09/18 15:28 CONCLUSION: 1. The study is negative for bilateral lower extremity deep venous thrombosis. Chest X-Ray 11/09/18 19:45 CONCLUSION: Moderate cardiomegaly. Abdomen/Bladder Ultrasound 11/13/18 00:00 CONCLUSION: 1. Stable chronic severe left hydronephrosis from uncertain etiology. There is essentially no remaining left renal tissue present likely due to long-standing chronic obstruction. 2. Stable cystic lesion versus dilated lower pole collecting system in the upper right kidney. This could represent a large renal sinus cyst or obstructed lower pole collecting system. There is no obstruction in the upper pole collecting system. 3. Small volume of free fluid is present within the abdomen and pelvis. Gallbladder Ultrasound 11/14/18 00:00 CONCLUSION: 1. Ascites with small nodular liver 2. Trace hydronephrosis on the right Assessment and Plan - Plan Continue treatment per primary team and Nephrology Oligouria likely due to renal failure, no obstruction noted urinary-ham Keep catheter if needed by primary team, start Flomax 0.4mg QD Follow up with Urology outpatient Discussed Condition With: Dr. Yenifer BECERRA attending, Dr. Rodriguez Hospitalist
[2018-11-14 16:18] LABS: Creatinine,Urine Random 148 mg/dL (27-300); Sodium,Urine Random 34 meq/L
[2018-11-14] MEDS: Furosemide Inj 100 MG in Sodium Chlor 0.9% Inj 90 ML IV.CONT SCH (16:40)
--- NOTE | 2018-11-14 18:35 | P.PN ---
Subjective Interval history: Feeling ok Physical Exam Vital signs: Vital Signs 11/13/18 19:00 11/13/18 20:00 11/13/18 21:00 Temperature 97.5 F L Pulse Rate 46 L 68 64 Respiratory Rate 18 Blood Pressure 104/70 Pulse Oximetry 98 11/13/18 22:00 11/13/18 23:00 11/14/18 00:00 Temperature Pulse Rate 64 46 L 70 Respiratory Rate 20 Blood Pressure 109/74 Pulse Oximetry 93 L 11/14/18 01:00 11/14/18 02:00 11/14/18 03:00 Temperature Pulse Rate 37 L 38 L 36 L Respiratory Rate Blood Pressure Pulse Oximetry 11/14/18 04:00 11/14/18 05:00 11/14/18 06:00 Temperature 95.8 F L Pulse Rate 36 L 36 L 34 L Respiratory Rate 20 Blood Pressure 107/60 Pulse Oximetry 94 L 11/14/18 07:00 11/14/18 08:00 11/14/18 09:00 Temperature 97.5 F L Pulse Rate 48 L 56 L 52 L Respiratory Rate 16 16 Blood Pressure 104/72 Pulse Oximetry 97 11/14/18 09:43 11/14/18 10:54 11/14/18 12:00 Temperature 97.6 F Pulse Rate 48 L 47 L 47 L Respiratory Rate 18 Blood Pressure 107/76 Pulse Oximetry 98 11/14/18 12:16 11/14/18 14:00 11/14/18 14:45 Temperature Pulse Rate 48 L 51 L Respiratory Rate 22 Blood Pressure Pulse Oximetry 11/14/18 15:00 11/14/18 15:31 11/14/18 16:00 Temperature 97.7 F Pulse Rate 53 L 59 L 49 L Respiratory Rate 18 Blood Pressure 90/74 L Pulse Oximetry 96 11/14/18 17:00 11/14/18 17:27 Temperature Pulse Rate 55 L 56 L Respiratory Rate Blood Pressure Pulse Oximetry Intake & Output 11/13/18 11/14/18 11/14/18 18:59 06:59 18:59 Intake Total 650 / 650 440 / 440 1860 / 1860 Output Total 0 / 0 20 100 / 100 Balance 650 / 650 420 / 420 1760 / 1760 Weight 74.4 kg Intake: IV 250 / 250 200 / 200 1100 / 1100 NS Inj 1,000 ML @ 50 mls/hr IV. 1000 / 1000 CONT .Q20H [facility] Rx#:[id number] Azactam Inj 1,000 MG In NS Inj 200 / 200 100 / 100 100 ML @ 200 mls/hr IV.SIG Q8H [facility] Rx#:[id number] NS Inj 250 ML @ Wide Open IV. 250 / 250 [facility] Rx#:[id number] Oral 400 / 400 240 / 240 760 / 760 Output: Urine 0 / 0 Urine Amount (Catheter) 20 20 100 / 100 Indwelling Urethral Catheter 100 / 100 Other: Date of Last Bowel Movement 11/12/18 - Constitutional no acute distress - Routine HEENT Exam Head: Present: normocephalic Eye: Present: PERRL ENT: Present: mucous membranes moist - Routine Cardiovascular Exam Present: RRR, S1, S2 - Routine Neurological Exam Present: alert, oriented X3 - Detailed Neurological Exam: Coma Scale Eye Opening: Spontaneous Verbal Response: Oriented Motor Response: Obey commands [place] Coma Scale Total: 15 - Urinary Catheter Management Indwelling Urethral Catheter Cath placed during this visit: yes, but has since been removed by the nurse Reason for continuing: Hourly intake/output Insertion date: 11/13/18 Insertion time: 16:00 Removal date: 11/13/18 Removal time: 15:50 Results - Labs CBC & Chem 7: 11/14/18 03:33 11/14/18 14:08 Laboratory Results - last 24 hr 11/13/18 11/13/18 11/14/18 13:03 20:06 03:33 WBC 12.3 H RBC 4.32 L Hgb 13.5 Hct 40.9 MCV 94.7 MCH 31.2 MCHC 32.9 RDW 16.6 Plt Count 110 L MPV 11.1 H Neut % (Auto) 82.0 H Lymph % (Auto) 9.3 [place] % (Auto) 8.5 H Eos % (Auto) 0.0 Baso % (Auto) 0.2 Neut # (Auto) 10.1 H Lymph # (Auto) 1.1 [place] # (Auto) 1.0 H Eos # (Auto) 0.0 Baso # (Auto) 0.0 WBC Differential . Differential Comment Auto diff final Sodium Potassium Chloride Carbon Dioxide Anion Gap BUN Creatinine Estimated GFR Random Glucose Calcium Phosphorus Magnesium Total Bilirubin Direct Bilirubin Indirect Bilirubin AST ALT Alkaline Phosphatase Total Creatine Kinase 54 B-Natriuretic Peptide 441 H Total Protein Albumin Urine Osmolality Ur Random Creatinine Ur Random Sodium 11/14/18 11/14/18 11/14/18 03:33 14:08 14:30 WBC RBC Hgb Hct MCV MCH MCHC RDW Plt Count MPV Neut % (Auto) Lymph % (Auto) [place] % (Auto) Eos % (Auto) Baso % (Auto) Neut # (Auto) Lymph # (Auto) [place] # (Auto) Eos # (Auto) Baso # (Auto) WBC Differential Differential Comment Sodium 134 L 133 L Potassium 5.8 H 5.5 H Chloride 100 101 Carbon Dioxide 22.2 19.5 L Anion Gap 12 13 BUN 71 H 83 H Creatinine 4.81 H 5.34 H Estimated GFR 12 L 10 L Random Glucose 106 139 H Calcium 8.4 L 8.1 L Phosphorus 6.7 H D Magnesium 2.4 Total Bilirubin 2.6 H 2.3 H Direct Bilirubin 1.2 H Indirect Bilirubin 1.4 H AST 473 H 331 H ALT 526 H 471 H Alkaline Phosphatase 185 H 184 H Total Creatine Kinase B-Natriuretic Peptide Total Protein 7.0 6.9 Albumin 3.6 3.4 Urine Osmolality Ur Random Creatinine 148 Ur Random Sodium 34 11/14/18 11/14/18 14:30 14:30 WBC RBC Hgb Hct MCV MCH MCHC RDW Plt Count MPV Neut % (Auto) Lymph % (Auto) [place] % (Auto) Eos % (Auto) Baso % (Auto) Neut # (Auto) Lymph # (Auto) [place] # (Auto) Eos # (Auto) Baso # (Auto) WBC Differential Differential Comment Sodium Potassium Chloride Carbon Dioxide Anion Gap BUN Creatinine Estimated GFR Random Glucose Calcium Phosphorus Magnesium Total Bilirubin Direct Bilirubin Indirect Bilirubin AST ALT Alkaline Phosphatase Total Creatine Kinase B-Natriuretic Peptide Total Protein Albumin Urine Osmolality 323 Ur Random Creatinine Ur Random Sodium Cancelled - Imaging Impressions Gallbladder Ultrasound 11/14/18 00:00 CONCLUSION: 1. Ascites with small nodular liver 2. Trace hydronephrosis on the right Assessment and Plan - Assessment (1) Atrial fibrillation Code(s): I48.91 - Unspecified atrial fibrillation Status: Acute Plan: In sinus rhythm. HR control Creatinine high. Manage by nephrology. Due to low creatinine clearance, flecainide cannot be used. Will continue on current management If HR needs to be controlled, Cardizem can be used. Will be followed this weekend by Dr Flowers. I will be available on a PRN basis.
[2018-11-15] MEDS: Furosemide Inj 100 MG in Sodium Chlor 0.9% Inj 90 ML IV.CONT SCH ×5 (00:28→19:16)
[2018-11-15 09:22] LABS: Baso % (Auto) 0.2 % (0.0-2.0); Eos % (Auto) 0.1 % (0.0-4.0); Hematocrit 40.6 % (39.0-51.0); Hemoglobin 13.7 gm/dL (13.0-17.0); Lymph % (Auto) 8.8 % (9.0-44.0); Mean Corpuscular HGB Conc 33.6 % (32.0-36.0); Mean Corpuscular Hemoglobin 31.8 pg (27.0-34.0); Mean Corpuscular Volume 94.6 fL (80.0-100.0); Mono # (Auto) 1.1 th/mm3 (0.0-0.9); Mono % (Auto) 9.5 % (0.0-8.0); Neut % (Auto) 81.4 % (16.0-70.0); Platelet Count 109 th/mm3 (150-450); Red Cell Distribution Width 16.8 % (11.6-17.2); White Blood Count 11.1 th/mm3 (4.0-11.0)
[2018-11-15] MEDS: Senna/Docusate Sodium 8.6/50 MG Tablet PO SCH ×2 (09:43→21:04)
[2018-11-15] MEDS: Budesonide-Formoterol 160/4.5 MCG 6 GM Inhaler INH SCH ×2 (09:44→21:04)
[2018-11-15] MEDS: Flecainide 100 MG Tablet PO SCH (09:45)
[2018-11-15 09:58] LABS: Albumin 3.5 g/dL (3.4-5.0); Calcium 8.3 mg/dL (8.5-10.1); Carbon Dioxide 21.5 meq/L (21.0-32.0); Phosphorus 7.2 mg/dL (2.5-4.9); Potassium 4.5 meq/L (3.5-5.1)
--- NOTE | 2018-11-15 10:29 | P.PNNP ---
Subjective Interval history: Feeling better this, no acute complaints. making some urine Physical Exam Vital signs: Vital Signs 11/14/18 10:54 11/14/18 12:00 11/14/18 12:16 Temperature 97.6 F Pulse Rate 47 L 47 L 48 L Respiratory Rate 18 Blood Pressure 107/76 Pulse Oximetry 98 11/14/18 14:00 11/14/18 14:45 11/14/18 15:00 Temperature Pulse Rate 51 L 53 L Respiratory Rate 22 Blood Pressure Pulse Oximetry 11/14/18 15:31 11/14/18 16:00 11/14/18 17:00 Temperature 97.7 F Pulse Rate 59 L 49 L 55 L Respiratory Rate 18 Blood Pressure 90/74 L Pulse Oximetry 96 11/14/18 17:27 11/14/18 19:00 11/14/18 20:00 Temperature 97 F L Pulse Rate 56 L 49 L 52 L Respiratory Rate 20 Blood Pressure 104/77 Pulse Oximetry 100 11/14/18 21:00 11/14/18 22:00 11/14/18 23:00 Temperature Pulse Rate 54 L 56 L 56 L Respiratory Rate Blood Pressure Pulse Oximetry 11/15/18 00:00 11/15/18 01:00 11/15/18 02:00 Temperature Pulse Rate 70 56 L 56 L Respiratory Rate 16 Blood Pressure 106/74 Pulse Oximetry 97 11/15/18 03:00 11/15/18 03:46 11/15/18 04:00 Temperature Pulse Rate 54 L 57 L 52 L Respiratory Rate 16 Blood Pressure 102/75 Pulse Oximetry 96 11/15/18 05:00 11/15/18 06:00 Temperature Pulse Rate 54 L 52 L Respiratory Rate Blood Pressure Pulse Oximetry Intake & Output 11/14/18 11/15/18 11/15/18 18:59 06:59 18:59 Intake Total 1860 / 1860 680 / 680 80 / 80 Output Total 100 / 100 300 / 300 Balance 1760 / 1760 380 / 380 80 / 80 Weight 74 kg Intake: IV 1100 / 1100 200 / 200 80 / 80 Lasix Inj 100 MG In NS Inj 90 100 / 100 80 / 80 ML @ 10 mls/hr IV.CONT .Q10H [facility] Rx#:[id number] NS Inj 1,000 ML @ 50 mls/hr IV. 1000 / 1000 CONT .Q20H [facility] Rx#:[id number] Azactam Inj 1,000 MG In NS Inj 100 / 100 100 / 100 100 ML @ 200 mls/hr IV.SIG Q8H [facility] Rx#:[id number] Oral 760 / 760 480 / 480 Output: Urine Amount (Catheter) 100 / 100 300 / 300 Indwelling Urethral Catheter 100 / 100 300 / 300 Other: Date of Last Bowel Movement 11/13/18 - Constitutional no acute distress - Routine HEENT Exam Head: Present: normocephalic Eye: Present: EOMI ENT: Present: mucous membranes moist - Routine Neck Exam Present: supple - Routine Respiratory Exam Present: decreased breath sounds - Routine Cardiovascular Exam Present: RRR - Routine Abdominal Exam Present: soft - Routine Skin Exam Present: intact - Routine Neurological Exam Present: alert, oriented X3 - Detailed Neurological Exam: Coma Scale Eye Opening: Spontaneous - Routine Psychiatric Exam Present: normal affect - Urinary Catheter Management Indwelling Urethral Catheter Cath placed during this visit: yes, but has since been removed by the nurse Reason for continuing: Hourly intake/output Insertion date: 11/13/18 Insertion time: 16:00 Removal date: 11/13/18 Removal time: 15:50 Assessment and Plan - Assessment (1) Acute kidney injury superimposed on chronic kidney disease Code(s): N17.9 - Acute kidney failure, unspecified; N18.9 - Chronic kidney disease, unspecified Status: Acute Plan: Patient has chronic kidney disease and single functioning kidney, Now with AALIYAH - most likely ATN due to Hypotension. Creatinine 1.4 on admission Now creatinine 5.3 -> 5.5 K+ 5.5 -> 4.5 now - given kayexelate and also 50meq NaHCO3 x 1 yesterday HCO3 21 today. Continues on lasix infusion UOP slightly improved, with 400cc UOP/ 24 hours. Blood pressure remains borderline low, with SBP in 100s. No acute need for HD at this point, early improvement in UOP is encouraging. However if little further improvement, may require dialysis. Continue to follow labs. (If HD will be necessary, will need ICU transfer and vascath for dialysis - to allow for HD in monitored setting. Follow AM labs) D/W the patient and in detail and explained. (2) Atrial fibrillation Code(s): I48.91 - Unspecified atrial fibrillation Status: Acute Plan: On eliquis. NSR now, follow with cardiology (3) Anasarca Code(s): R60.1 - Generalized edema Status: Acute (4) CHF (congestive heart failure) Code(s): I50.9 - Heart failure, unspecified Status: Acute
[2018-11-15] MEDS: Sodium Bicarbonate 8.4% Inj 75 MEQ in Sodium Chloride 0.45 % Inj 925 ML IV.CONT SCH (11:34)
[2018-11-15] MEDS: Morphine Sulfate Inj 2 MG/ML Vial IV.PUSH PRN ×2 (11:42→22:29)
--- NOTE | 2018-11-15 14:27 | P.PN ---
Subjective Interval history: Follow-up paroxysmal atrial fibrillation/acute kidney injury/hematuria November 15, 2018-patient seen and examined, currently denies any chest pain or shortness of breath. Gross hematuria improving. While by the bedside. Case discussed with cardiology Physical Exam Vital signs: Vital Signs 11/14/18 14:45 11/14/18 15:00 11/14/18 15:31 Temperature 97.7 F Pulse Rate 53 L 59 L Respiratory Rate 22 18 Blood Pressure 90/74 L Pulse Oximetry 96 11/14/18 16:00 11/14/18 17:00 11/14/18 17:27 Temperature Pulse Rate 49 L 55 L 56 L Respiratory Rate Blood Pressure Pulse Oximetry 11/14/18 19:00 11/14/18 20:00 11/14/18 21:00 Temperature 97 F L Pulse Rate 49 L 52 L 54 L Respiratory Rate 20 Blood Pressure 104/77 Pulse Oximetry 100 11/14/18 22:00 11/14/18 23:00 11/15/18 00:00 Temperature Pulse Rate 56 L 56 L 70 Respiratory Rate 16 Blood Pressure 106/74 Pulse Oximetry 97 11/15/18 01:00 11/15/18 02:00 11/15/18 03:00 Temperature Pulse Rate 56 L 56 L 54 L Respiratory Rate Blood Pressure Pulse Oximetry 11/15/18 03:46 11/15/18 04:00 11/15/18 05:00 Temperature Pulse Rate 57 L 52 L 54 L Respiratory Rate 16 Blood Pressure 102/75 Pulse Oximetry 96 11/15/18 06:00 11/15/18 08:00 11/15/18 12:00 Temperature 97.7 F 97.8 F Pulse Rate 52 L 55 L 59 L Respiratory Rate 18 18 Blood Pressure 102/72 114/81 Pulse Oximetry 98 94 L Intake & Output 11/14/18 11/15/18 11/15/18 18:59 06:59 18:59 Intake Total 1860 / 1860 680 / 680 180 / 180 Output Total 100 / 100 300 / 300 Balance 1760 / 1760 380 / 380 180 / 180 Weight 74 kg Intake: IV 1100 / 1100 200 / 200 180 / 180 Lasix Inj 100 MG In NS Inj 90 100 / 100 80 / 80 ML @ 10 mls/hr IV.CONT .Q10H [facility] Rx#:[id number] NS Inj 1,000 ML @ 50 mls/hr IV. 1000 / 1000 0 / 0 CONT .Q20H [facility] Rx#:[id number] Azactam Inj 1,000 MG In NS Inj 100 / 100 100 / 100 100 / 100 100 ML @ 200 mls/hr IV.SIG Q8H [facility] Rx#:[id number] Oral 760 / 760 480 / 480 Output: Urine Amount (Catheter) 100 / 100 300 / 300 Indwelling Urethral Catheter 100 / 100 300 / 300 Other: Date of Last Bowel Movement 11/13/18 11/13/18 Narrative: GENERAL: NAD SKIN: Warm and dry. HEAD: Atraumatic. Normocephalic. EYES: Pupils equal and round. No scleral icterus. No injection or drainage. ENT: No nasal bleeding or discharge. Mucous membranes pink and moist. NECK: Trachea midline. No JVD. CARDIOVASCULAR: Regular rate and rhythm. RESPIRATORY: No accessory muscle use. Clear to auscultation. Breath sounds equal bilaterally. GASTROINTESTINAL: Abdomen soft, non-tender, nondistended. Hepatic and splenic margins not palpable. MUSCULOSKELETAL: Extremities without clubbing, cyanosis,+ BLE edema. No obvious deformities. NEUROLOGICAL: Awake and alert. No obvious cranial nerve deficits. Motor grossly within normal limits. Five out of 5 muscle strength in the arms and legs. Normal speech. PSYCHIATRIC: Appropriate mood and affect; insight and judgment normal. - Urinary Catheter Management Indwelling Urethral Catheter Cath placed during this visit: yes, but has since been removed by the nurse Reason for continuing: Hourly intake/output Insertion date: 11/13/18 Insertion time: 16:00 Removal date: 11/13/18 Removal time: 15:50 Results - Labs CBC & Chem 7: 11/15/18 08:37 11/15/18 08:37 Laboratory Results - last 24 hr 11/14/18 11/14/18 11/14/18 14:08 14:30 14:30 WBC RBC Hgb Hct MCV MCH MCHC RDW Plt Count MPV Neut % (Auto) Lymph % (Auto) [place] % (Auto) Eos % (Auto) Baso % (Auto) Neut # (Auto) Lymph # (Auto) [place] # (Auto) Eos # (Auto) Baso # (Auto) WBC Differential Differential Comment Sodium 133 L Potassium 5.5 H Chloride 101 Carbon Dioxide 19.5 L Anion Gap 13 BUN 83 H Creatinine 5.34 H Estimated GFR 10 L Random Glucose 139 H Calcium 8.1 L Phosphorus Total Bilirubin 2.3 H AST 331 H ALT 471 H Alkaline Phosphatase 184 H Total Protein 6.9 Total Protein (PEP) Albumin 3.4 Urine Osmolality Ur Random Creatinine 148 Ur Random Sodium 34 Cancelled 11/14/18 11/15/18 11/15/18 14:30 08:37 08:37 WBC 11.1 H RBC 4.30 L Hgb 13.7 Hct 40.6 MCV 94.6 MCH 31.8 MCHC 33.6 RDW 16.8 Plt Count 109 L MPV 11.0 Neut % (Auto) 81.4 H Lymph % (Auto) 8.8 L [place] % (Auto) 9.5 H Eos % (Auto) 0.1 Baso % (Auto) 0.2 Neut # (Auto) 9.0 H Lymph # (Auto) 1.0 [place] # (Auto) 1.1 H Eos # (Auto) 0.0 Baso # (Auto) 0.0 WBC Differential . Differential Comment Auto diff final Sodium 134 L Potassium 4.5 D Chloride 97 L Carbon Dioxide 21.5 Anion Gap 16 H BUN 91 H Creatinine 5.51 H Estimated GFR 10 L Random Glucose 87 Calcium 8.3 L Phosphorus 7.2 H Total Bilirubin AST ALT Alkaline Phosphatase Total Protein Total Protein (PEP) 7.0 Albumin 3.5 Urine Osmolality 323 Ur Random Creatinine Ur Random Sodium Assessment and Plan - Assessment (1) V-tach Code(s): I47.2 - Ventricular tachycardia Status: Acute (2) CHF (congestive heart failure) Code(s): I50.9 - Heart failure, unspecified Status: Acute (3) Chest pain Code(s): R07.9 - Chest pain, unspecified Status: Acute (4) Elevated troponin Code(s): R74.8 - Abnormal levels of other serum enzymes Status: Acute - Plan 78-year-old man with Paroxysmal atrial fibrillation Currently on Eliquis 5 mg twice daily, flecainide has been discontinued by 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 Appreciate assistance. Acute on chronic systolic CHF LASHAY 08/07/18 w/ EF 40-45%, +significant lower extremity/scrotal edema. Doppler LE negative for DVT. Scrotal US no significant findings. Continue w/ diuresis-caution w/ renal function, monitor I/O. Oliguric acute kidney injury on chronic kidney disease stage III. Appreciate input from nephrology Continue sodium bicarb and monitor BUN and creatinine Gross hematuria Improving Appreciate input from urology DVT Prophylaxis: Haris PT consult to treat and eval
--- NOTE | 2018-11-15 15:16 | P.PNCA ---
Subjective Interval history: Follow up for Dr. Shin No events overnight Sinus rhythm Medications and Allergies Active Medications: Active Medications Acetaminophen (Tylenol) 650 mg PO Q4H PRN PRN Reason: Temp > 100.4 Al Hydroxide/Mg Hydroxide (Milk Of Magnesia Liq) 30 ml PO Q12H PRN PRN Reason: Mild Constipation Bisacodyl (Dulcolax Supp) 10 mg RECTAL DAILY PRN PRN Reason: SEVERE CONSITIPATION Budesonide/Formoterol Fumarate (Symbicort 160/4.5 Mcg Inh) 2 puff INH BID [facility] Last Admin: 11/15/18 09:44 Dose: Not Given Furosemide 100 mg/ Sodium (Chloride) 100 mls @ 10 mls/hr IV.CONT .Q10H [facility] Last Admin: 11/15/18 07:23 Dose: 10 mls/hr Sodium Bicarbonate 75 meq/ (Sodium Chloride) 1,000 mls @ 70 mls/hr IV.CONT .[id number] [facility] Last Admin: 11/15/18 11:34 Dose: 70 mls/hr Aztreonam 500 mg/ Sodium (Chloride) 50 mls @ 100 mls/hr IV.SIG Q8H [facility] Lactulose (Lactulose Liq) 30 ml PO DAILY PRN PRN Reason: SEVERE CONSITIPATION Morphine Sulfate (Morphine Inj) 2 mg IV.PUSH Q4H PRN PRN Reason: PAIN 6-10 Last Admin: 11/15/18 11:42 Dose: 2 mg Nitroglycerin (Nitro-Bid 2% Oint) 0.5 inch TOPICAL Q6HR PRN PRN Reason: CHEST PAIN Ondansetron HCl (Zofran Inj) 4 mg IV.PUSH Q6H PRN PRN Reason: NAUSEA OR VOMITING Senna/Docusate Sodium (Amairani-Colace) 1 tab PO BID [facility] Last Admin: 11/15/18 09:43 Dose: 1 tab Sennosides (Senokot) 17.2 mg PO Q12H PRN PRN Reason: Moderate Constipation Sodium Chloride (Ns Flush) 2 ml IV.FLUSH BID [facility] Last Admin: 11/15/18 09:43 Dose: Not Given Sodium Chloride (Ns Flush) 2 ml IV.FLUSH PRN PRN PRN Reason: FLUSH AFTER USING IV ACCESS Tamsulosin HCl (Flomax) 0.4 mg PO DAILY [facility] Last Admin: 11/15/18 09:43 Dose: 0.4 mg Allergies Allergy/AdvReac Type Severity Reaction Status Date / Time Penicillins Allergy Intermediate Rash Verified 11/09/18 15:07 Home Medications Medication Instructions Recorded Confirmed Type allopurinol 100 mg PO DAILY 08/07/18 11/09/18 History apixaban [Eliquis] 5 mg PO BID 08/07/18 11/09/18 History budesonide-formoterol [Symbicort] 2 puff INHALATION BID 08/07/18 11/09/18 History furosemide [Lasix] 20 mg PO DAILY PRN 08/07/18 11/09/18 History lisinopril 20 mg PO DAILY 08/07/18 11/09/18 History potassium chloride 10 meq PO DAILY PRN 08/07/18 11/09/18 History tamsulosin 0.4 mg PO DAILY 08/07/18 11/09/18 History Physical Exam Vital signs: Vital Signs 11/14/18 15:31 11/14/18 16:00 11/14/18 17:00 Temperature 97.7 F Pulse Rate 59 L 49 L 55 L Respiratory Rate 18 Blood Pressure 90/74 L Pulse Oximetry 96 11/14/18 17:27 11/14/18 19:00 11/14/18 20:00 Temperature 97 F L Pulse Rate 56 L 49 L 52 L Respiratory Rate 20 Blood Pressure 104/77 Pulse Oximetry 100 11/14/18 21:00 11/14/18 22:00 11/14/18 23:00 Temperature Pulse Rate 54 L 56 L 56 L Respiratory Rate Blood Pressure Pulse Oximetry 11/15/18 00:00 11/15/18 01:00 11/15/18 02:00 Temperature Pulse Rate 70 56 L 56 L Respiratory Rate 16 Blood Pressure 106/74 Pulse Oximetry 97 11/15/18 03:00 11/15/18 03:46 11/15/18 04:00 Temperature Pulse Rate 54 L 57 L 52 L Respiratory Rate 16 Blood Pressure 102/75 Pulse Oximetry 96 11/15/18 05:00 11/15/18 06:00 11/15/18 08:00 Temperature 97.7 F Pulse Rate 54 L 52 L 55 L Respiratory Rate 18 Blood Pressure 102/72 Pulse Oximetry 98 11/15/18 12:00 Temperature 97.8 F Pulse Rate 59 L Respiratory Rate 18 Blood Pressure 114/81 Pulse Oximetry 94 L Intake & Output 11/14/18 11/15/18 11/15/18 18:59 06:59 18:59 Intake Total 1860 / 1860 680 / 680 180 / 180 Output Total 100 / 100 300 / 300 Balance 1760 / 1760 380 / 380 180 / 180 Weight 74 kg Intake: IV 1100 / 1100 200 / 200 180 / 180 Lasix Inj 100 MG In NS Inj 90 100 / 100 80 / 80 ML @ 10 mls/hr IV.CONT .Q10H [facility] Rx#:[id number] NS Inj 1,000 ML @ 50 mls/hr IV. 1000 / 1000 0 / 0 CONT .Q20H [facility] Rx#:[id number] Azactam Inj 1,000 MG In NS Inj 100 / 100 100 / 100 100 / 100 100 ML @ 200 mls/hr IV.SIG Q8H [facility] Rx#:[id number] Oral 760 / 760 480 / 480 Output: Urine Amount (Catheter) 100 / 100 300 / 300 Indwelling Urethral Catheter 100 / 100 300 / 300 Other: Date of Last Bowel Movement 11/13/18 11/13/18 Narrative: GENERAL: NAD SKIN: Warm and dry. HEAD: Atraumatic. Normocephalic. EYES: Pupils equal and round. No scleral icterus. No injection or drainage. ENT: No nasal bleeding or discharge. Mucous membranes pink and moist. NECK: Trachea midline. No JVD. CARDIOVASCULAR: Regular rate and rhythm. RESPIRATORY: No accessory muscle use. Clear to auscultation. Breath sounds equal bilaterally. GASTROINTESTINAL: Abdomen soft, non-tender, nondistended. Hepatic and splenic margins not palpable. MUSCULOSKELETAL: Extremities without clubbing, cyanosis,+ BLE edema. No obvious deformities. NEUROLOGICAL: Awake and alert. No obvious cranial nerve deficits. Motor grossly within normal limits. Five out of 5 muscle strength in the arms and legs. Normal speech. PSYCHIATRIC: Appropriate mood and affect; insight and judgment normal. - Urinary Catheter Management Indwelling Urethral Catheter Cath placed during this visit: yes, but has since been removed by the nurse Reason for continuing: Hourly intake/output Insertion date: 11/13/18 Insertion time: 16:00 Removal date: 11/13/18 Removal time: 15:50 Results 11/15/18 08:37 12/22/18 08:37 Cardiac Enzymes 11/13/18 11/14/18 11/14/18 Range/Units 20:06 03:33 14:08 AST 473 H 331 H (15-37) U/L B-Natriuretic Peptide 441 H (0-100) pg/mL Coagulation 11/13/18 Range/Units 20:06 B-Natriuretic Peptide 441 H (0-100) pg/mL CBC 11/14/18 11/15/18 Range/Units 03:33 08:37 WBC 12.3 H 11.1 H (4.0-11.0) th/mm3 RBC 4.32 L 4.30 L (4.50-5.90) mil/mm3 Hgb 13.5 13.7 (13.0-17.0) gm/dL Hct 40.9 40.6 (39.0-51.0) % Plt Count 110 L 109 L (150-450) th/mm3 Neut # (Auto) 10.1 H 9.0 H (1.8-7.7) th/mm3 Lymph # (Auto) 1.1 1.0 (1.0-4.8) th/mm3 [place] # (Auto) 1.0 H 1.1 H (0.0-0.9) th/mm3 Eos # (Auto) 0.0 0.0 (0.0-0.4) th/mm3 Baso # (Auto) 0.0 0.0 (0.0-0.2) th/mm3 Comprehensive Metabolic Panel 11/14/18 11/14/18 11/15/18 Range/Units 03:33 14:08 08:37 Sodium 134 L 133 L 134 L (136-145) meq/L Potassium 5.8 H 5.5 H 4.5 D (3.5-5.1) meq/L Chloride 100 101 97 L (98-107) meq/L Carbon Dioxide 22.2 19.5 L 21.5 (21.0-32.0) meq/L BUN 71 H 83 H 91 H (7-18) mg/dL Creatinine 4.81 H 5.34 H 5.51 H (0.60-1.30) mg/dL Calcium 8.4 L 8.1 L 8.3 L (8.5-10.1) mg/dL Direct Bilirubin 1.2 H (0.0-0.2) mg/dL Indirect Bilirubin 1.4 H (0.0-0.8) mg/dL AST 473 H 331 H (15-37) U/L ALT 526 H 471 H (12-78) U/L Alkaline Phosphatase 185 H 184 H (45-117) U/L Total Protein 7.0 6.9 (6.4-8.2) g/dL Albumin 3.6 3.4 3.5 (3.4-5.0) g/dL Intake and Output 11/15/18 11/15/18 11/15/18 06:59 14:59 22:59 Intake Total 580 / 580 180 / 180 Output Total 300 / 300 Balance 280 / 280 180 / 180 Intake: IV 100 / 100 180 / 180 Lasix Inj 100 MG In NS Inj 90 100 / 100 80 / 80 ML @ 10 mls/hr IV.CONT .Q10H [facility] Rx#:[id number] NS Inj 1,000 ML @ 50 mls/hr IV. 0 / 0 CONT .Q20H [facility] Rx#:[id number] Azactam Inj 1,000 MG In NS Inj 100 / 100 100 ML @ 200 mls/hr IV.SIG Q8H [facility] Rx#:[id number] Oral 480 / 480 Output: Urine Amount (Catheter) 300 / 300 Indwelling Urethral Catheter 300 / 300 Other: Date of Last Bowel Movement 11/13/18 11/13/18 Weight 74 kg - Imaging and Cardiology Imaging: Impressions Abdomen/Bladder Ultrasound 11/13/18 00:00 CONCLUSION: 1. Stable chronic severe left hydronephrosis from uncertain etiology. There is essentially no remaining left renal tissue present likely due to long-standing chronic obstruction. 2. Stable cystic lesion versus dilated lower pole collecting system in the upper right kidney. This could represent a large renal sinus cyst or obstructed lower pole collecting system. There is no obstruction in the upper pole collecting system. 3. Small volume of free fluid is present within the abdomen and pelvis. Gallbladder Ultrasound 11/14/18 00:00 CONCLUSION: 1. Ascites with small nodular liver 2. Trace hydronephrosis on the right Assessment and Plan - Assessment (1) Atrial fibrillation Code(s): I48.91 - Unspecified atrial fibrillation Status: Acute - Plan 1) AFib Flecainide stopped due to AALIYAH on CKD No AV warren blockers at this time If needed, would place on Cardizem Eliquis stopped due to hematuria 2) Elevated trop Minimal elevation, flat Most likely secondary to RVR No further work up 3) AALIYAH on CKD Nephrology following Currently on Lasix drip
[2018-11-15] MEDS: AZTREONAM IV.SIG SCH ×2 (18:22→23:57)
[2018-11-15] MEDS: SODIUM CHLOR 0.9% IV.SIG SCH ×2 (18:22→23:57)
[2018-11-16] MEDS: Sodium Bicarbonate 8.4% Inj 75 MEQ in Sodium Chloride 0.45 % Inj 925 ML IV.CONT SCH (02:21)
[2018-11-16] MEDS: Furosemide Inj 100 MG in Sodium Chlor 0.9% Inj 90 ML IV.CONT SCH ×4 (04:23→23:10)
[2018-11-16] MEDS: Senna/Docusate Sodium 8.6/50 MG Tablet PO SCH (08:06)
[2018-11-16 08:54] LABS: Baso % (Auto) 0.5 % (0.0-2.0); Eos # (Auto) 0.1 th/mm3 (0.0-0.4); Eos % (Auto) 0.7 % (0.0-4.0); Hematocrit 39.3 % (39.0-51.0); Hemoglobin 13.3 gm/dL (13.0-17.0); Lymph # (Auto) 0.9 th/mm3 (1.0-4.8); Lymph % (Auto) 12.5 % (9.0-44.0); Mean Corpuscular HGB Conc 33.8 % (32.0-36.0); Mean Corpuscular Hemoglobin 31.5 pg (27.0-34.0); Mean Corpuscular Volume 93.3 fL (80.0-100.0); Mean Platelet Volume 10.9 fL (7.0-11.0); Mono # (Auto) 0.8 th/mm3 (0.0-0.9); Mono % (Auto) 10.1 % (0.0-8.0); Neut # (Auto) 5.8 th/mm3 (1.8-7.7); Neut % (Auto) 76.2 % (16.0-70.0); Platelet Count 107 th/mm3 (150-450); Red Blood Count 4.21 mil/mm3 (4.50-5.90); Red Cell Distribution Width 16.4 % (11.6-17.2); White Blood Count 7.6 th/mm3 (4.0-11.0)
[2018-11-16 09:15] LABS: Albumin 3.1 g/dL (3.4-5.0); Anion Gap 15 meq/L (5-15); Aspartate Aminotransferase 172 U/L (15-37); Blood Urea Nitrogen 91 mg/dL (7-18); Carbon Dioxide 25.3 meq/L (21.0-32.0); Chloride 98 meq/L (98-107); Glomerular Filtration Rate 11 mL/min (>89); Glucose,Random 78 mg/dL (74-106); Sodium 138 meq/L (136-145)
[2018-11-16 09:19] LABS: Alanine Aminotransferase 363 U/L (12-78); Alkaline Phosphatase 179 U/L (45-117); Total Protein 6.6 g/dL (6.4-8.2)
[2018-11-16] MEDS: SODIUM CHLOR 0.9% IV.SIG SCH ×3 (09:59→23:11)
[2018-11-16] MEDS: AZTREONAM IV.SIG SCH ×3 (09:59→23:11)
[2018-11-16] MEDS: Budesonide-Formoterol 160/4.5 MCG 6 GM Inhaler INH SCH ×2 (10:00→21:13)
--- NOTE | 2018-11-16 12:43 | P.PN ---
Subjective Interval history: Follow-up paroxysmal atrial fibrillation/acute kidney injury/hematuria November 15, 2018-patient seen and examined, currently denies any chest pain or shortness of breath. Gross hematuria improving. While by the bedside. Case discussed with cardiology November 16, 2018-patient seen and examined, gross hematuria resolved. States he has lost his voice overnight and complained of dry throat Physical Exam Vital signs: Vital Signs 11/15/18 13:00 11/15/18 14:00 11/15/18 15:00 Temperature Pulse Rate 60 60 60 Respiratory Rate Blood Pressure Pulse Oximetry 11/15/18 16:00 11/15/18 17:00 11/15/18 18:00 Temperature 98.0 F Pulse Rate 64 62 61 Respiratory Rate 18 Blood Pressure 111/82 Pulse Oximetry 95 11/15/18 19:00 11/15/18 20:00 11/15/18 21:00 Temperature 97.8 F Pulse Rate 62 64 64 Respiratory Rate 16 Blood Pressure 106/78 Pulse Oximetry 97 11/15/18 22:00 11/15/18 23:00 11/15/18 23:07 Temperature Pulse Rate 62 62 65 Respiratory Rate 18 Blood Pressure 107/77 Pulse Oximetry 95 11/16/18 00:00 11/16/18 01:00 11/16/18 02:00 Temperature Pulse Rate 62 58 L 58 L Respiratory Rate Blood Pressure Pulse Oximetry 11/16/18 03:00 11/16/18 04:00 11/16/18 05:00 Temperature Pulse Rate 59 L 56 L 58 L Respiratory Rate 16 Blood Pressure 111/79 Pulse Oximetry 97 11/16/18 06:00 11/16/18 08:00 11/16/18 09:00 Temperature 97.6 F Pulse Rate 56 L 60 64 Respiratory Rate 18 Blood Pressure 119/87 Pulse Oximetry 97 11/16/18 10:00 Temperature Pulse Rate 60 Respiratory Rate Blood Pressure Pulse Oximetry Intake & Output 11/15/18 11/16/18 11/16/18 18:59 06:59 18:59 Intake Total 1220 / 1220 1940 / 1940 50 / 50 Output Total 800 / 800 1350 / 1350 Balance 420 / 420 590 / 590 50 / 50 Weight 76.2 kg Intake: IV 280 / 280 1700 / 1700 50 / 50 Lasix Inj 100 MG In NS Inj 90 180 / 180 100 / 100 ML @ 10 mls/hr IV.CONT .Q10H [facility] Rx#:[id number] NS Inj 1,000 ML @ 50 mls/hr IV. 0 / 0 500 / 500 CONT .Q20H [facility] Rx#:[id number] Sodium Bicarbonate 8.4% Inj 75 1000 / 1000 MEQ In 1/2 Normal Saline Inj 925 ML @ 70 mls/hr IV.CONT . [id number] [facility] Rx#:[id number] Azactam Inj 500 MG In NS Inj 50 100 / 100 50 / 50 ML @ 100 mls/hr IV.SIG Q8H [facility] Rx#:[id number] Azactam Inj 1,000 MG In NS Inj 100 / 100 100 ML @ 200 mls/hr IV.SIG Q8H [facility] Rx#:[id number] Oral 940 / 940 240 / 240 Output: Urine 800 / 800 Urine Amount (Catheter) 1350 / 1350 Indwelling Urethral Catheter 1350 / 1350 Other: Date of Last Bowel Movement 11/13/18 11/13/18 11/13/18 Narrative: GENERAL: NAD SKIN: Warm and dry. HEAD: Normocephalic. EYES: No scleral icterus. No injection or drainage. NECK: Supple, trachea midline. No JVD or lymphadenopathy. CARDIOVASCULAR: Regular rate and rhythm without murmurs, gallops, or rubs. RESPIRATORY: Breath sounds equal bilaterally. No accessory muscle use. GASTROINTESTINAL: Abdomen soft, non-tender, nondistended. MUSCULOSKELETAL: No cyanosis, or edema. BACK: Nontender without obvious deformity. No CVA tenderness. - Urinary Catheter Management Indwelling Urethral Catheter Cath placed during this visit: yes, but has since been removed by the nurse Reason for continuing: Hourly intake/output Insertion date: 11/13/18 Insertion time: 16:00 Removal date: 11/13/18 Removal time: 15:50 Results - Labs CBC & Chem 7: 11/16/18 08:00 11/16/18 08:00 Laboratory Results - last 24 hr 11/13/18 11/16/18 11/16/18 14:30 08:00 08:00 WBC 7.6 RBC 4.21 L Hgb 13.3 Hct 39.3 MCV 93.3 MCH 31.5 MCHC 33.8 RDW 16.4 Plt Count 107 L MPV 10.9 Neut % (Auto) 76.2 H Lymph % (Auto) 12.5 [place] % (Auto) 10.1 H Eos % (Auto) 0.7 Baso % (Auto) 0.5 Neut # (Auto) 5.8 Lymph # (Auto) 0.9 L [place] # (Auto) 0.8 Eos # (Auto) 0.1 Baso # (Auto) 0.0 WBC Differential . Differential Comment Auto diff final Sodium 138 Potassium 4.0 Chloride 98 Carbon Dioxide 25.3 Anion Gap 15 BUN 91 H Creatinine 5.18 H Estimated GFR 11 L Random Glucose 78 Calcium 8.0 L Total Bilirubin 2.3 H AST 172 H ALT 363 H Alkaline Phosphatase 179 H Total Protein 6.6 Albumin 3.1 L Ur Collection Type Cancelled Urine Color Cancelled Urine Clarity Cancelled Urine pH Cancelled Ur Specific [place] Cancelled Urine Protein Cancelled Urine Glucose (UA) Cancelled Urine Ketones Cancelled Urine Occult Blood Cancelled Urine Nitrate Cancelled Urine Bilirubin Cancelled Urine Ictotest Cancelled Urine Urobilinogen Cancelled Ur Leukocyte Esterase Cancelled Urine RBC Cancelled Urine WBC Cancelled Urine WBC Clumps Cancelled Ur Squamous Epith Cells Cancelled Ur Transition Epith Cell Cancelled Ur Renal Epithelial Cell Cancelled Calcium Carbonate Cryst Cancelled Calcium Oxalate Crystal Cancelled Leucine Crystals Cancelled Cystine Crystals Cancelled Uric Acid Crystals Cancelled Triple Phos Crystals Cancelled Cholesterol Crystals Cancelled Tyrosine Crystals Cancelled Amorphous Sediment Cancelled Urine Bacteria Cancelled Hyaline Casts Cancelled Granular Casts Cancelled Fine Granular Casts Cancelled Coarse Granular Casts Cancelled Waxy Casts Cancelled RBC Casts Cancelled WBC Casts Cancelled Urine Mucus Cancelled Urine Trichomonas Cancelled Urine Yeast Cancelled Ur Yeast w [place] Cancelled Urine Sperm Cancelled Ur Oval Fat Bodies Cancelled Micro UA Comment Cancelled Ur Microscopic Review Cancelled Urine Culture Comments Cancelled Urine Collection Time Cancelled Urine Comment Cancelled Assessment and Plan - Assessment (1) V-tach Code(s): I47.2 - Ventricular tachycardia Status: Acute (2) CHF (congestive heart failure) Code(s): I50.9 - Heart failure, unspecified Status: Acute (3) Chest pain Code(s): R07.9 - Chest pain, unspecified Status: Acute (4) Elevated troponin Code(s): R74.8 - Abnormal levels of other serum enzymes Status: Acute - Plan 78-year-old man with Paroxysmal atrial fibrillation 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 Cardiology to consider when to restart it Elevated Trop Cardiology following. Appreciate assistance. Acute on chronic systolic CHF LASHAY 08/07/18 w/ EF 40-45%, +significant lower extremity/scrotal edema. Doppler LE negative for DVT. Scrotal US no significant findings. Continue w/ diuresis-caution w/ renal function, monitor I/O. Oliguric acute kidney injury on chronic kidney disease stage III. Appreciate input from nephrology Continue sodium bicarb and monitor BUN and creatinine Gross hematuria Resolved Appreciate input from urology DVT Prophylaxis: Bilateral SCDs PT consult to treat and eval
[2018-11-16] MEDS ORDERED: Menthol 5.8 MG Lozenge BUCCAL PRN (12:46)
--- NOTE | 2018-11-16 13:30 | P.PNNP ---
Subjective Interval history: Sore throat today, tired Physical Exam Vital signs: Vital Signs 11/15/18 14:00 11/15/18 15:00 11/15/18 16:00 Temperature 98.0 F Pulse Rate 60 60 64 Respiratory Rate 18 Blood Pressure 111/82 Pulse Oximetry 95 11/15/18 17:00 11/15/18 18:00 11/15/18 19:00 Temperature Pulse Rate 62 61 62 Respiratory Rate Blood Pressure Pulse Oximetry 11/15/18 20:00 11/15/18 21:00 11/15/18 22:00 Temperature 97.8 F Pulse Rate 64 64 62 Respiratory Rate 16 Blood Pressure 106/78 Pulse Oximetry 97 11/15/18 23:00 11/15/18 23:07 11/16/18 00:00 Temperature Pulse Rate 62 65 62 Respiratory Rate 18 Blood Pressure 107/77 Pulse Oximetry 95 11/16/18 01:00 11/16/18 02:00 11/16/18 03:00 Temperature Pulse Rate 58 L 58 L 59 L Respiratory Rate Blood Pressure Pulse Oximetry 11/16/18 04:00 11/16/18 05:00 11/16/18 06:00 Temperature Pulse Rate 56 L 58 L 56 L Respiratory Rate 16 Blood Pressure 111/79 Pulse Oximetry 97 11/16/18 08:00 11/16/18 09:00 11/16/18 10:00 Temperature 97.6 F Pulse Rate 60 64 60 Respiratory Rate 18 Blood Pressure 119/87 Pulse Oximetry 97 Intake & Output 11/15/18 11/16/18 11/16/18 18:59 06:59 18:59 Intake Total 1220 / 1220 1940 / 1940 50 / 50 Output Total 800 / 800 1350 / 1350 Balance 420 / 420 590 / 590 50 / 50 Weight 76.2 kg Intake: IV 280 / 280 1700 / 1700 50 / 50 Lasix Inj 100 MG In NS Inj 90 180 / 180 100 / 100 ML @ 10 mls/hr IV.CONT .Q10H [facility] Rx#:[id number] NS Inj 1,000 ML @ 50 mls/hr IV. 0 / 0 500 / 500 CONT .Q20H [facility] Rx#:[id number] Sodium Bicarbonate 8.4% Inj 75 1000 / 1000 MEQ In 1/2 Normal Saline Inj 925 ML @ 70 mls/hr IV.CONT . [id number] [facility] Rx#:[id number] Azactam Inj 500 MG In NS Inj 50 100 / 100 50 / 50 ML @ 100 mls/hr IV.SIG Q8H [facility] Rx#:[id number] Azactam Inj 1,000 MG In NS Inj 100 / 100 100 ML @ 200 mls/hr IV.SIG Q8H [facility] Rx#:[id number] Oral 940 / 940 240 / 240 Output: Urine 800 / 800 Urine Amount (Catheter) 1350 / 1350 Indwelling Urethral Catheter 1350 / 1350 Other: Date of Last Bowel Movement 11/13/18 11/13/18 11/13/18 - Constitutional no acute distress - Routine HEENT Exam Head: Present: normocephalic Eye: Present: EOMI ENT: Present: mucous membranes moist - Routine Neck Exam Present: supple - Routine Respiratory Exam Present: decreased breath sounds - Routine Cardiovascular Exam Present: RRR - Routine Abdominal Exam Present: soft - Routine Skin Exam Present: intact - Routine Neurological Exam Present: alert, oriented X3 - Detailed Neurological Exam: Coma Scale Eye Opening: Spontaneous Verbal Response: Oriented - Routine Psychiatric Exam Present: normal affect - Urinary Catheter Management Indwelling Urethral Catheter Cath placed during this visit: yes, but has since been removed by the nurse Reason for continuing: Hourly intake/output Insertion date: 11/13/18 Insertion time: 16:00 Removal date: 11/13/18 Removal time: 15:50 Assessment and Plan - Assessment (1) Acute kidney injury superimposed on chronic kidney disease Code(s): N17.9 - Acute kidney failure, unspecified; N18.9 - Chronic kidney disease, unspecified Status: Acute Plan: Patient has chronic kidney disease and single functioning kidney, Now with AALIYAH - most likely ATN due to Hypotension. Creatinine 1.4 on admission Now creatinine 5.3 -> 5.5 -> 5.1 today Initial hyperkalemia improved Continues on lasix infusion UOP improving, with 1.3L UOP/ 24 hours. Initial hematuria has resolved, no further intervention per . Blood pressure has been improving as well - BP 110s/80s today Will stop IVFs, patient is tolerating PO liquids No acute need for HD at this point, early improvement in UOP is encouraging. However if little further improvement, may require dialysis. Continue to follow labs. (2) Atrial fibrillation Code(s): I48.91 - Unspecified atrial fibrillation Status: Acute Plan: . NSR now, follow with cardiology (3) Anasarca Code(s): R60.1 - Generalized edema Status: Acute (4) CHF (congestive heart failure) Code(s): I50.9 - Heart failure, unspecified Status: Acute
--- NOTE | 2018-11-16 14:25 | P.PNCA ---
Subjective Interval history: No events overnight Hematuria has cleared Medications and Allergies Active Medications: Active Medications Acetaminophen (Tylenol) 650 mg PO Q4H PRN PRN Reason: Temp > 100.4 Al Hydroxide/Mg Hydroxide (Milk Of Annabelle Sanches) 30 ml PO Q12H PRN PRN Reason: Mild Constipation Budesonide/Formoterol Fumarate (Symbicort 160/4.5 Mcg Inh) 2 puff INH BID [facility] Last Admin: 11/16/18 10:00 Dose: Not Given Furosemide 100 mg/ Sodium (Chloride) 100 mls @ 10 mls/hr IV.CONT .Q10H [facility] Last Admin: 11/16/18 14:12 Dose: 10 mls/hr Aztreonam 500 mg/ Sodium (Chloride) 50 mls @ 100 mls/hr IV.SIG Q8H [facility] Last Infusion: 11/16/18 10:56 Dose: Infused Menthol ([place]) 1 lozenge BUCCAL Q1H PRN PRN Reason: SORE THROAT Morphine Sulfate (Morphine Inj) 2 mg IV.PUSH Q4H PRN PRN Reason: PAIN 6-10 Last Admin: 11/15/18 22:29 Dose: 2 mg Nitroglycerin (Nitro-Bid 2% Oint) 0.5 inch TOPICAL Q6HR PRN PRN Reason: CHEST PAIN Ondansetron HCl (Zofran Inj) 4 mg IV.PUSH Q6H PRN PRN Reason: NAUSEA OR VOMITING Sodium Chloride (Ns Flush) 2 ml IV.FLUSH BID [facility] Last Admin: 11/16/18 09:59 Dose: Not Given Sodium Chloride (Ns Flush) 2 ml IV.FLUSH PRN PRN PRN Reason: FLUSH AFTER USING IV ACCESS Tamsulosin HCl (Flomax) 0.4 mg PO DAILY [facility] Last Admin: 11/16/18 08:06 Dose: 0.4 mg Allergies Allergy/AdvReac Type Severity Reaction Status Date / Time Penicillins Allergy Intermediate Rash Verified 11/09/18 15:07 Home Medications Medication Instructions Recorded Confirmed Type allopurinol 100 mg PO DAILY 08/07/18 11/09/18 History apixaban [Eliquis] 5 mg PO BID 08/07/18 11/09/18 History budesonide-formoterol [Symbicort] 2 puff INHALATION BID 08/07/18 11/09/18 History furosemide [Lasix] 20 mg PO DAILY PRN 08/07/18 11/09/18 History lisinopril 20 mg PO DAILY 08/07/18 11/09/18 History potassium chloride 10 meq PO DAILY PRN 08/07/18 11/09/18 History tamsulosin 0.4 mg PO DAILY 08/07/18 11/09/18 History Physical Exam Vital signs: Vital Signs 11/15/18 15:00 11/15/18 16:00 11/15/18 17:00 Temperature 98.0 F Pulse Rate 60 64 62 Respiratory Rate 18 Blood Pressure 111/82 Pulse Oximetry 95 11/15/18 18:00 11/15/18 19:00 11/15/18 20:00 Temperature 97.8 F Pulse Rate 61 62 64 Respiratory Rate 16 Blood Pressure 106/78 Pulse Oximetry 97 11/15/18 21:00 11/15/18 22:00 11/15/18 23:00 Temperature Pulse Rate 64 62 62 Respiratory Rate Blood Pressure Pulse Oximetry 11/15/18 23:07 11/16/18 00:00 11/16/18 01:00 Temperature Pulse Rate 65 62 58 L Respiratory Rate 18 Blood Pressure 107/77 Pulse Oximetry 95 11/16/18 02:00 11/16/18 03:00 11/16/18 04:00 Temperature Pulse Rate 58 L 59 L 56 L Respiratory Rate 16 Blood Pressure 111/79 Pulse Oximetry 97 11/16/18 05:00 11/16/18 06:00 11/16/18 08:00 Temperature 97.6 F Pulse Rate 58 L 56 L 60 Respiratory Rate 18 Blood Pressure 119/87 Pulse Oximetry 97 11/16/18 09:00 11/16/18 10:00 Temperature Pulse Rate 64 60 Respiratory Rate Blood Pressure Pulse Oximetry Intake & Output 11/15/18 11/16/18 11/16/18 18:59 06:59 18:59 Intake Total 1220 / 1220 1940 / 1940 750 / 750 Output Total 800 / 800 1350 / 1350 Balance 420 / 420 590 / 590 750 / 750 Weight 76.2 kg Intake: IV 280 / 280 1700 / 1700 750 / 750 Lasix Inj 100 MG In NS Inj 90 180 / 180 100 / 100 100 / 100 ML @ 10 mls/hr IV.CONT .Q10H [facility] Rx#:[id number] NS Inj 1,000 ML @ 50 mls/hr IV. 0 / 0 500 / 500 CONT .Q20H [facility] Rx#:[id number] Sodium Bicarbonate 8.4% Inj 75 1000 / 1000 600 / 600 MEQ In 1/2 Normal Saline Inj 925 ML @ 70 mls/hr IV.CONT . [id number] [facility] Rx#:[id number] Azactam Inj 500 MG In NS Inj 50 100 / 100 50 / 50 ML @ 100 mls/hr IV.SIG Q8H [facility] Rx#:[id number] Azactam Inj 1,000 MG In NS Inj 100 / 100 100 ML @ 200 mls/hr IV.SIG Q8H [facility] Rx#:[id number] Oral 940 / 940 240 / 240 Output: Urine 800 / 800 Urine Amount (Catheter) 1350 / 1350 Indwelling Urethral Catheter 1350 / 1350 Other: Date of Last Bowel Movement 11/13/18 11/13/18 11/13/18 Narrative: GENERAL: NAD SKIN: Warm and dry. HEAD: Normocephalic. EYES: No scleral icterus. No injection or drainage. NECK: Supple, trachea midline. No JVD or lymphadenopathy. CARDIOVASCULAR: Regular rate and rhythm without murmurs, gallops, or rubs. RESPIRATORY: Breath sounds equal bilaterally. No accessory muscle use. GASTROINTESTINAL: Abdomen soft, non-tender, nondistended. MUSCULOSKELETAL: No cyanosis, or edema. BACK: Nontender without obvious deformity. No CVA tenderness. - Urinary Catheter Management Indwelling Urethral Catheter Cath placed during this visit: yes, but has since been removed by the nurse Reason for continuing: Hourly intake/output Insertion date: 11/13/18 Insertion time: 16:00 Removal date: 11/13/18 Removal time: 15:50 Results 11/16/18 08:00 11/16/18 08:00 Cardiac Enzymes 11/14/18 11/16/18 Range/Units 14:08 08:00 AST 331 H 172 H (15-37) U/L CBC 11/15/18 11/16/18 Range/Units 08:37 08:00 WBC 11.1 H 7.6 (4.0-11.0) th/mm3 RBC 4.30 L 4.21 L (4.50-5.90) mil/mm3 Hgb 13.7 13.3 (13.0-17.0) gm/dL Hct 40.6 39.3 (39.0-51.0) % Plt Count 109 L 107 L (150-450) th/mm3 Neut # (Auto) 9.0 H 5.8 (1.8-7.7) th/mm3 Lymph # (Auto) 1.0 0.9 L (1.0-4.8) th/mm3 [place] # (Auto) 1.1 H 0.8 (0.0-0.9) th/mm3 Eos # (Auto) 0.0 0.1 (0.0-0.4) th/mm3 Baso # (Auto) 0.0 0.0 (0.0-0.2) th/mm3 Comprehensive Metabolic Panel 11/14/18 11/15/18 11/16/18 Range/Units 14:08 08:37 08:00 Sodium 133 L 134 L 138 (136-145) meq/L Potassium 5.5 H 4.5 D 4.0 (3.5-5.1) meq/L Chloride 101 97 L 98 (98-107) meq/L Carbon Dioxide 19.5 L 21.5 25.3 (21.0-32.0) meq/L BUN 83 H 91 H 91 H (7-18) mg/dL Creatinine 5.34 H 5.51 H 5.18 H (0.60-1.30) mg/dL Calcium 8.1 L 8.3 L 8.0 L (8.5-10.1) mg/dL AST 331 H 172 H (15-37) U/L ALT 471 H 363 H (12-78) U/L Alkaline Phosphatase 184 H 179 H (45-117) U/L Total Protein 6.9 6.6 (6.4-8.2) g/dL Albumin 3.4 3.5 3.1 L (3.4-5.0) g/dL Intake and Output 11/15/18 11/16/18 11/16/18 22:59 06:59 14:59 Intake Total 1590 / 1590 1390 / 1390 750 / 750 Output Total 800 / 800 1350 / 1350 Balance 790 / 790 40 / 40 750 / 750 Intake: IV 650 / 650 1150 / 1150 750 / 750 Lasix Inj 100 MG In NS Inj 90 100 / 100 100 / 100 100 / 100 ML @ 10 mls/hr IV.CONT .Q10H [facility] Rx#:[id number] NS Inj 1,000 ML @ 50 mls/hr IV. 500 / 500 CONT .Q20H [facility] Rx#:[id number] Sodium Bicarbonate 8.4% Inj 75 1000 / 1000 600 / 600 MEQ In 1/2 Normal Saline Inj 925 ML @ 70 mls/hr IV.CONT . [id number] [facility] Rx#:[id number] Azactam Inj 500 MG In NS Inj 50 50 / 50 50 / 50 50 / 50 ML @ 100 mls/hr IV.SIG Q8H [facility] Rx#:[id number] Oral 940 / 940 240 / 240 Output: Urine 800 / 800 Urine Amount (Catheter) 1350 / 1350 Indwelling Urethral Catheter 1350 / 1350 Other: Date of Last Bowel Movement 11/13/18 11/13/18 11/13/18 Weight 76.2 kg Assessment and Plan - Assessment (1) Atrial fibrillation Code(s): I48.91 - Unspecified atrial fibrillation Status: Acute - Plan 1) AFib Flecainide stopped due to AALIYAH on CKD No AV warren blockers at this time If needed, would place on Cardizem Eliquis stopped due to hematuria Hematuria has cleared Hematuria felt to be due to traumatic catheter, will consider restarting possible tomorrow to see if hematuria continues 2) Elevated trop Minimal elevation, flat Most likely secondary to RVR No further work up 3) AALIYAH on CKD Nephrology following Currently on Lasix drip
[2018-11-16] MEDS: Morphine Sulfate Inj 2 MG/ML Vial IV.PUSH PRN (15:20)
[2018-11-17] MEDS: Furosemide Inj 100 MG in Sodium Chlor 0.9% Inj 90 ML IV.CONT SCH (04:28)
[2018-11-17 07:38] LABS: Hematocrit 38.3 % (39.0-51.0); Hemoglobin 12.9 gm/dL (13.0-17.0); Mean Corpuscular HGB Conc 33.6 % (32.0-36.0); Mean Corpuscular Volume 92.3 fL (80.0-100.0); Mean Platelet Volume 10.2 fL (7.0-11.0); Platelet Count 115 th/mm3 (150-450); Red Blood Count 4.15 mil/mm3 (4.50-5.90); Red Cell Distribution Width 15.9 % (11.6-17.2); White Blood Count 6.4 th/mm3 (4.0-11.0)
[2018-11-17 08:05] LABS: Alanine Aminotransferase 310 U/L (12-78); Albumin 2.9 g/dL (3.4-5.0); Anion Gap 12 meq/L (5-15); Aspartate Aminotransferase 118 U/L (15-37); Blood Urea Nitrogen 88 mg/dL (7-18); Chloride 97 meq/L (98-107); Glomerular Filtration Rate 14 mL/min (>89); Glucose,Random 88 mg/dL (74-106); Potassium 3.5 meq/L (3.5-5.1); Sodium 137 meq/L (136-145)
[2018-11-17 08:08] LABS: Alkaline Phosphatase 184 U/L (45-117); Total Protein 6.4 g/dL (6.4-8.2)
[2018-11-17] MEDS: Morphine Sulfate Inj 2 MG/ML Vial IV.PUSH PRN (08:22)
[2018-11-17] MEDS: Budesonide-Formoterol 160/4.5 MCG 6 GM Inhaler INH SCH ×2 (09:05→20:24)
[2018-11-17] MEDS: AZTREONAM IV.SIG SCH ×3 (10:35→23:03)
[2018-11-17] MEDS: SODIUM CHLOR 0.9% IV.SIG SCH ×3 (10:35→23:03)
--- NOTE | 2018-11-17 11:37 | P.PNCA ---
Subjective Interval history: No events overnight Continues in normal sinus rhythm Medications and Allergies Active Medications: Active Medications Acetaminophen (Tylenol) 650 mg PO Q4H PRN PRN Reason: Temp > 100.4 Al Hydroxide/Mg Hydroxide (Milk Of Annabelle Sanches) 30 ml PO Q12H PRN PRN Reason: Mild Constipation Apixaban (Eliquis) 5 mg PO BID [facility] Budesonide/Formoterol Fumarate (Symbicort 160/4.5 Mcg Inh) 2 puff INH BID [facility] Last Admin: 11/17/18 09:05 Dose: Not Given Furosemide (Lasix) 20 mg PO DAILY [facility] Furosemide 100 mg/ Sodium (Chloride) 100 mls @ 10 mls/hr IV.CONT .Q10H [facility] Last Admin: 11/17/18 04:28 Dose: Not Given Aztreonam 500 mg/ Sodium (Chloride) 50 mls @ 100 mls/hr IV.SIG Q8H [facility] Last Infusion: 11/16/18 23:55 Dose: Infused Menthol ([place]) 1 lozenge BUCCAL Q1H PRN PRN Reason: SORE THROAT Morphine Sulfate (Morphine Inj) 2 mg IV.PUSH Q4H PRN PRN Reason: PAIN 6-10 Last Admin: 11/17/18 08:22 Dose: 2 mg Nitroglycerin (Nitro-Bid 2% Oint) 0.5 inch TOPICAL Q6HR PRN PRN Reason: CHEST PAIN Ondansetron HCl (Zofran Inj) 4 mg IV.PUSH Q6H PRN PRN Reason: NAUSEA OR VOMITING Sodium Chloride (Ns Flush) 2 ml IV.FLUSH BID [facility] Last Admin: 11/17/18 09:05 Dose: Not Given Sodium Chloride (Ns Flush) 2 ml IV.FLUSH PRN PRN PRN Reason: FLUSH AFTER USING IV ACCESS Tamsulosin HCl (Flomax) 0.4 mg PO DAILY [facility] Last Admin: 11/17/18 08:22 Dose: 0.4 mg Allergies Allergy/AdvReac Type Severity Reaction Status Date / Time Penicillins Allergy Intermediate Rash Verified 11/09/18 15:07 Home Medications Medication Instructions Recorded Confirmed Type allopurinol 100 mg PO DAILY 08/07/18 11/09/18 History apixaban [Eliquis] 5 mg PO BID 08/07/18 11/09/18 History budesonide-formoterol [Symbicort] 2 puff INHALATION BID 08/07/18 11/09/18 History furosemide [Lasix] 20 mg PO DAILY PRN 08/07/18 11/09/18 History lisinopril 20 mg PO DAILY 08/07/18 11/09/18 History potassium chloride 10 meq PO DAILY PRN 08/07/18 11/09/18 History tamsulosin 0.4 mg PO DAILY 08/07/18 11/09/18 History Physical Exam Vital signs: Vital Signs 11/16/18 12:00 11/16/18 13:00 11/16/18 14:00 Temperature 97.8 F Pulse Rate 68 66 66 Respiratory Rate 18 Blood Pressure 118/81 Pulse Oximetry 96 11/16/18 15:00 11/16/18 16:00 11/16/18 17:00 Temperature 97.8 F Pulse Rate 61 66 66 Respiratory Rate 18 Blood Pressure 123/87 Pulse Oximetry 97 11/16/18 18:00 11/16/18 19:00 11/16/18 19:42 Temperature 97.4 F L Pulse Rate 66 67 66 Respiratory Rate 18 Blood Pressure 124/85 Pulse Oximetry 99 11/16/18 20:00 11/16/18 21:00 11/16/18 22:00 Temperature Pulse Rate 67 66 66 Respiratory Rate Blood Pressure Pulse Oximetry 11/16/18 23:00 11/16/18 23:49 11/17/18 00:00 Temperature 98.1 F Pulse Rate 69 67 64 Respiratory Rate 18 Blood Pressure 115/78 Pulse Oximetry 96 11/17/18 01:00 11/17/18 02:00 11/17/18 03:00 Temperature Pulse Rate 76 62 63 Respiratory Rate Blood Pressure Pulse Oximetry 11/17/18 04:00 11/17/18 05:00 11/17/18 06:00 Temperature 97.6 F Pulse Rate 64 67 63 Respiratory Rate 18 Blood Pressure 123/81 Pulse Oximetry 96 11/17/18 07:00 11/17/18 08:00 Temperature 97.9 F Pulse Rate 65 64 Respiratory Rate 18 Blood Pressure 119/86 Pulse Oximetry 99 Intake & Output 11/16/18 11/17/18 11/17/18 18:59 06:59 18:59 Intake Total 800 / 800 630 / 630 Output Total 2500 / 2500 2350 / 2350 Balance -1700 / -1700 -1720 / -1720 Weight 75.1 kg Intake: IV 800 / 800 150 / 150 Lasix Inj 100 MG In NS Inj 90 100 / 100 100 / 100 ML @ 10 mls/hr IV.CONT .Q10H [facility] Rx#:[id number] Sodium Bicarbonate 8.4% Inj 75 600 / 600 MEQ In 1/2 Normal Saline Inj 925 ML @ 70 mls/hr IV.CONT . [id number] [facility] Rx#:[id number] Azactam Inj 500 MG In NS Inj 50 100 / 100 50 / 50 ML @ 100 mls/hr IV.SIG Q8H [facility] Rx#:[id number] Oral 480 / 480 Output: Urine 2350 / 2350 Urine Amount (Catheter) 2500 / 2500 Indwelling Urethral Catheter 2500 / 2500 Other: Date of Last Bowel Movement 11/13/18 11/15/18 11/13/18 Narrative: GENERAL: NAD SKIN: Warm and dry. HEAD: Normocephalic. EYES: No scleral icterus. No injection or drainage. NECK: Supple, trachea midline. No JVD or lymphadenopathy. CARDIOVASCULAR: Regular rate and rhythm without murmurs, gallops, or rubs. RESPIRATORY: Breath sounds equal bilaterally. No accessory muscle use. GASTROINTESTINAL: Abdomen soft, non-tender, nondistended. MUSCULOSKELETAL: No cyanosis, or edema. BACK: Nontender without obvious deformity. No CVA tenderness. - Urinary Catheter Management Indwelling Urethral Catheter Cath placed during this visit: yes, but has since been removed by the nurse Reason for continuing: Acute urinary retention Insertion date: 11/13/18 Insertion time: 16:00 Removal date: 11/13/18 Removal time: 15:50 Results 11/17/18 07:09 11/17/18 07:09 Cardiac Enzymes 11/16/18 11/17/18 Range/Units 08:00 07:09 AST 172 H 118 H (15-37) U/L CBC 11/16/18 11/17/18 Range/Units 08:00 07:09 WBC 7.6 6.4 (4.0-11.0) th/mm3 RBC 4.21 L 4.15 L (4.50-5.90) mil/mm3 Hgb 13.3 12.9 L (13.0-17.0) gm/dL Hct 39.3 38.3 L (39.0-51.0) % Plt Count 107 L 115 L (150-450) th/mm3 Neut # (Auto) 5.8 (1.8-7.7) th/mm3 Lymph # (Auto) 0.9 L (1.0-4.8) th/mm3 [place] # (Auto) 0.8 (0.0-0.9) th/mm3 Eos # (Auto) 0.1 (0.0-0.4) th/mm3 Baso # (Auto) 0.0 (0.0-0.2) th/mm3 Comprehensive Metabolic Panel 11/16/18 11/17/18 Range/Units 08:00 07:09 Sodium 138 137 (136-145) meq/L Potassium 4.0 3.5 (3.5-5.1) meq/L Chloride 98 97 L (98-107) meq/L Carbon Dioxide 25.3 28.0 (21.0-32.0) meq/L BUN 91 H 88 H (7-18) mg/dL Creatinine 5.18 H 4.22 H (0.60-1.30) mg/dL Calcium 8.0 L 8.0 L (8.5-10.1) mg/dL AST 172 H 118 H (15-37) U/L ALT 363 H 310 H (12-78) U/L Alkaline Phosphatase 179 H 184 H (45-117) U/L Total Protein 6.6 6.4 (6.4-8.2) g/dL Albumin 3.1 L 2.9 L (3.4-5.0) g/dL Intake and Output 11/16/18 11/17/18 11/17/18 22:59 06:59 14:59 Intake Total 50 / 50 630 / 630 Output Total 2500 / 2500 2350 / 2350 Balance -2450 / -2450 -1720 / -1720 Intake: IV 50 / 50 150 / 150 Lasix Inj 100 MG In NS Inj 90 100 / 100 ML @ 10 mls/hr IV.CONT .Q10H [facility] Rx#:[id number] Azactam Inj 500 MG In NS Inj 50 50 / 50 50 / 50 ML @ 100 mls/hr IV.SIG Q8H [facility] Rx#:[id number] Oral 480 / 480 Output: Urine 2350 / 2350 Urine Amount (Catheter) 2500 / 2500 Indwelling Urethral Catheter 2500 / 2500 Other: Date of Last Bowel Movement 11/13/18 11/15/18 11/13/18 Weight 75.1 kg Assessment and Plan - Assessment (1) Atrial fibrillation Code(s): I48.91 - Unspecified atrial fibrillation Status: Acute - Plan 1) AFib Flecainide stopped due to AALIYAH on CKD No AV warren blockers at this time If needed, would place on Cardizem Eliquis stopped due to hematuria Hematuria has cleared Hematuria felt to be due to traumatic catheter Will attempt to restart Eliquis 2) Elevated trop Minimal elevation, flat Most likely secondary to RVR No further work up 3) AALIYAH on CKD Nephrology following Currently on Lasix drip
--- NOTE | 2018-11-17 12:27 | P.PN ---
Subjective Interval history: Follow-up paroxysmal atrial fibrillation/acute kidney injury/hematuria November 15, 2018-patient seen and examined, currently denies any chest pain or shortness of breath. Gross hematuria improving. While by the bedside. Case discussed with cardiology November 16, 2018-patient seen and examined, gross hematuria resolved. States he has lost his voice overnight and complained of dry throat November 17, 2018-patient seen and examined, no chest pain or shortness of breath. Stable and no complaint. Afebrile Physical Exam Vital signs: Vital Signs 11/16/18 13:00 11/16/18 14:00 11/16/18 15:00 Temperature Pulse Rate 66 66 61 Respiratory Rate Blood Pressure Pulse Oximetry 11/16/18 16:00 11/16/18 17:00 11/16/18 18:00 Temperature 97.8 F Pulse Rate 66 66 66 Respiratory Rate 18 Blood Pressure 123/87 Pulse Oximetry 97 11/16/18 19:00 11/16/18 19:42 11/16/18 20:00 Temperature 97.4 F L Pulse Rate 67 66 67 Respiratory Rate 18 Blood Pressure 124/85 Pulse Oximetry 99 11/16/18 21:00 11/16/18 22:00 11/16/18 23:00 Temperature Pulse Rate 66 66 69 Respiratory Rate Blood Pressure Pulse Oximetry 11/16/18 23:49 11/17/18 00:00 11/17/18 01:00 Temperature 98.1 F Pulse Rate 67 64 76 Respiratory Rate 18 Blood Pressure 115/78 Pulse Oximetry 96 11/17/18 02:00 11/17/18 03:00 11/17/18 04:00 Temperature 97.6 F Pulse Rate 62 63 64 Respiratory Rate 18 Blood Pressure 123/81 Pulse Oximetry 96 11/17/18 05:00 11/17/18 06:00 11/17/18 07:00 Temperature Pulse Rate 67 63 65 Respiratory Rate Blood Pressure Pulse Oximetry 11/17/18 08:00 Temperature 97.9 F Pulse Rate 64 Respiratory Rate 18 Blood Pressure 119/86 Pulse Oximetry 99 Intake & Output 11/16/18 11/17/18 11/17/18 18:59 06:59 18:59 Intake Total 800 / 800 630 / 630 Output Total 2500 / 2500 2350 / 2350 Balance -1700 / -1700 -1720 / -1720 Weight 75.1 kg Intake: IV 800 / 800 150 / 150 Lasix Inj 100 MG In NS Inj 90 100 / 100 100 / 100 ML @ 10 mls/hr IV.CONT .Q10H [facility] Rx#:[id number] Sodium Bicarbonate 8.4% Inj 75 600 / 600 MEQ In 1/2 Normal Saline Inj 925 ML @ 70 mls/hr IV.CONT . [id number] [facility] Rx#:[id number] Azactam Inj 500 MG In NS Inj 50 100 / 100 50 / 50 ML @ 100 mls/hr IV.SIG Q8H [facility] Rx#:[id number] Oral 480 / 480 Output: Urine 2350 / 2350 Urine Amount (Catheter) 2500 / 2500 Indwelling Urethral Catheter 2500 / 2500 Other: Date of Last Bowel Movement 11/13/18 11/15/18 11/13/18 Narrative: GENERAL: NAD SKIN: Warm and dry. HEAD: Normocephalic. EYES: No scleral icterus. No injection or drainage. NECK: Supple, trachea midline. No JVD or lymphadenopathy. CARDIOVASCULAR: Regular rate and rhythm without murmurs, gallops, or rubs. RESPIRATORY: Breath sounds equal bilaterally. No accessory muscle use. GASTROINTESTINAL: Abdomen soft, non-tender, nondistended. MUSCULOSKELETAL: No cyanosis, or edema. BACK: Nontender without obvious deformity. No CVA tenderness. - Urinary Catheter Management Indwelling Urethral Catheter Cath placed during this visit: yes, but has since been removed by the nurse Reason for continuing: Acute urinary retention Insertion date: 11/13/18 Insertion time: 16:00 Removal date: 11/13/18 Removal time: 15:50 Results - Labs CBC & Chem 7: 11/17/18 07:09 11/17/18 07:09 Laboratory Results - last 24 hr 11/15/18 11/17/18 11/17/18 08:37 07:09 07:09 WBC 6.4 RBC 4.15 L Hgb 12.9 L Hct 38.3 L MCV 92.3 MCH 31.0 MCHC 33.6 RDW 15.9 Plt Count 115 L MPV 10.2 Sodium 137 Potassium 3.5 Chloride 97 L Carbon Dioxide 28.0 Anion Gap 12 BUN 88 H Creatinine 4.22 H Estimated GFR 14 L Random Glucose 88 Calcium 8.0 L Total Bilirubin 2.5 H AST 118 H ALT 310 H Alkaline Phosphatase 184 H Total Protein 6.4 Albumin 2.9 L SOLE Screen Neg - Procedures None Assessment and Plan - Assessment (1) V-tach Code(s): I47.2 - Ventricular tachycardia Status: Acute (2) CHF (congestive heart failure) Code(s): I50.9 - Heart failure, unspecified Status: Acute (3) Chest pain Code(s): R07.9 - Chest pain, unspecified Status: Acute (4) Elevated troponin Code(s): R74.8 - Abnormal levels of other serum enzymes Status: Acute - Plan 78-year-old man with Paroxysmal atrial fibrillation flecainide has been discontinued by outplacement consultant Continue nitroglycerin Consider Cardizem for rate control Resume Eliquis Elevated Trop Cardiology following. Appreciate assistance. Acute on chronic systolic CHF LASHAY 08/07/18 w/ EF 40-45%, +significant lower extremity/scrotal edema. Doppler LE negative for DVT. Scrotal US no significant findings. Continue w/ diuresis-caution w/ renal function, monitor I/O. Will start p.o. Lasix Oliguric acute kidney injury on chronic kidney disease stage III. Renal indices improving Appreciate input from nephrology s/p sodium bicarb and monitor BUN and creatinine Gross hematuria Resolved Appreciate input from urology DVT Prophylaxis: Bilateral SCDs PT to treat and eval Discharge when cleared by nephrology, cardiology
--- NOTE | 2018-11-17 20:31 | P.PNNP ---
Subjective Interval history: Patient seen in AM, awake, no SOB, not in distress. Physical Exam Vital signs: Vital Signs 11/16/18 21:00 11/16/18 22:00 11/16/18 23:00 Temperature Pulse Rate 66 66 69 Respiratory Rate Blood Pressure Pulse Oximetry 11/16/18 23:49 11/17/18 00:00 11/17/18 01:00 Temperature 98.1 F Pulse Rate 67 64 76 Respiratory Rate 18 Blood Pressure 115/78 Pulse Oximetry 96 11/17/18 02:00 11/17/18 03:00 11/17/18 04:00 Temperature 97.6 F Pulse Rate 62 63 64 Respiratory Rate 18 Blood Pressure 123/81 Pulse Oximetry 96 11/17/18 05:00 11/17/18 06:00 11/17/18 07:00 Temperature Pulse Rate 67 63 65 Respiratory Rate Blood Pressure Pulse Oximetry 11/17/18 08:00 11/17/18 09:00 11/17/18 10:00 Temperature 97.9 F Pulse Rate 78 68 64 Respiratory Rate 18 Blood Pressure 119/86 Pulse Oximetry 99 11/17/18 12:00 11/17/18 13:00 11/17/18 14:00 Temperature 98.0 F Pulse Rate 70 74 66 Respiratory Rate 18 Blood Pressure 124/81 Pulse Oximetry 96 11/17/18 15:00 11/17/18 16:00 11/17/18 16:28 Temperature Pulse Rate 60 69 60 Respiratory Rate 16 Blood Pressure 118/84 Pulse Oximetry 11/17/18 17:00 11/17/18 18:00 Temperature Pulse Rate 84 84 Respiratory Rate Blood Pressure Pulse Oximetry Intake & Output 11/17/18 11/17/18 11/18/18 06:59 18:59 06:59 Intake Total 630 / 630 1180 / 1180 Output Total 2350 / 2350 2250 / 2250 Balance -1720 / -1720 -1070 / -1070 Weight 75.1 kg Intake: IV 150 / 150 100 / 100 Lasix Inj 100 MG In NS Inj 90 100 / 100 ML @ 10 mls/hr IV.CONT .Q10H [facility] Rx#:[id number] Azactam Inj 500 MG In NS Inj 50 50 / 50 100 / 100 ML @ 100 mls/hr IV.SIG Q8H [facility] Rx#:[id number] Oral 480 / 480 1080 / 1080 Output: Urine 2350 / 2350 2250 / 2250 Other: Date of Last Bowel Movement 11/15/18 11/13/18 Narrative: GENERAL: NAD SKIN: Warm and dry. HEAD: Normocephalic. EYES: No scleral icterus. No injection or drainage. NECK: Supple, trachea midline. No JVD or lymphadenopathy. CARDIOVASCULAR: Regular rate and rhythm without murmurs, gallops, or rubs. RESPIRATORY: Breath sounds equal bilaterally. No accessory muscle use. GASTROINTESTINAL: Abdomen soft, non-tender, nondistended. MUSCULOSKELETAL: No cyanosis, or edema. BACK: Nontender without obvious deformity. No CVA tenderness. 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 Creatinine 1.4 on admission Now creatinine continue to improve, today 4.2. Initial hyperkalemia improved Continues on lasix infusion UOP improving, Initial hematuria has resolved, no further intervention per . Blood pressure has been improving as well - BP 110s/80s today patient is tolerating PO liquids Watch for renal recovery. (2) Atrial fibrillation Code(s): I48.91 - Unspecified atrial fibrillation Status: Acute Plan: . NSR now, follow with cardiology (3) Anasarca Code(s): R60.1 - Generalized edema Status: Acute (4) CHF (congestive heart failure) Code(s): I50.9 - Heart failure, unspecified Status: Acute - Plan Patient seen and examined, agree with above. Patient has chronic kidney disease and single functioning kidney, now develop AALIYAH. Has most likely ATN due to Hypotension. Give NaHco3 and Kayexalate for high K. Lasix infusion. If not better, may need HD. D/W the patient and in detail and explained. Dr. Graham will cover for the weekend.
[2018-11-18 07:11] LABS: Hematocrit 40.3 % (39.0-51.0); Hemoglobin 13.7 gm/dL (13.0-17.0); Mean Corpuscular HGB Conc 34.1 % (32.0-36.0); Mean Corpuscular Hemoglobin 31.5 pg (27.0-34.0); Mean Corpuscular Volume 92.6 fL (80.0-100.0); Mean Platelet Volume 10.4 fL (7.0-11.0); Platelet Count 121 th/mm3 (150-450); Red Blood Count 4.35 mil/mm3 (4.50-5.90); Red Cell Distribution Width 16.2 % (11.6-17.2); White Blood Count 8.1 th/mm3 (4.0-11.0)
[2018-11-18 07:13] LABS: Anion Gap 10 meq/L (5-15); Aspartate Aminotransferase 82 U/L (15-37); Blood Urea Nitrogen 81 mg/dL (7-18); Calcium 8.1 mg/dL (8.5-10.1); Carbon Dioxide 30.9 meq/L (21.0-32.0); Chloride 97 meq/L (98-107); Glomerular Filtration Rate 17 mL/min (>89); Glucose,Random 84 mg/dL (74-106); Potassium 3.9 meq/L (3.5-5.1); Sodium 138 meq/L (136-145)
[2018-11-18 07:16] LABS: Alanine Aminotransferase 263 U/L (12-78); Alkaline Phosphatase 197 U/L (45-117); Total Protein 6.7 g/dL (6.4-8.2)
[2018-11-18] MEDS: AZTREONAM IV.SIG SCH ×3 (09:05→23:20)
[2018-11-18] MEDS: Furosemide 20 MG Tablet PO SCH (09:05)
[2018-11-18] MEDS: SODIUM CHLOR 0.9% IV.SIG SCH ×3 (09:05→23:20)
[2018-11-18] MEDS: Budesonide-Formoterol 160/4.5 MCG 6 GM Inhaler INH SCH ×2 (09:06→20:54)
--- NOTE | 2018-11-18 12:06 | P.PN ---
Subjective Interval history: Follow-up paroxysmal atrial fibrillation/acute kidney injury/hematuria November 15, 2018-patient seen and examined, currently denies any chest pain or shortness of breath. Gross hematuria improving. While by the bedside. Case discussed with cardiology November 16, 2018-patient seen and examined, gross hematuria resolved. States he has lost his voice overnight and complained of dry throat November 17, 2018-patient seen and examined, no chest pain or shortness of breath. Stable and no complaint. Afebrile November 18, 2018-patient seen and examined, remains stable with improvement of renal function. Physical Exam Vital signs: Vital Signs 11/17/18 13:00 11/17/18 14:00 11/17/18 15:00 Temperature Pulse Rate 74 66 60 Respiratory Rate Blood Pressure Pulse Oximetry 11/17/18 16:00 11/17/18 16:28 11/17/18 17:00 Temperature Pulse Rate 69 60 84 Respiratory Rate 16 Blood Pressure 118/84 Pulse Oximetry 11/17/18 18:00 11/17/18 19:00 11/17/18 20:00 Temperature 98.2 F Pulse Rate 84 67 64 Respiratory Rate 18 Blood Pressure 115/57 L Pulse Oximetry 98 11/17/18 21:00 11/17/18 22:00 11/17/18 23:00 Temperature Pulse Rate 69 70 69 Respiratory Rate Blood Pressure Pulse Oximetry 11/18/18 00:00 11/18/18 01:00 11/18/18 02:00 Temperature 98.0 F Pulse Rate 82 77 60 Respiratory Rate 18 Blood Pressure 135/85 Pulse Oximetry 96 11/18/18 03:00 11/18/18 04:00 11/18/18 05:00 Temperature 97.7 F Pulse Rate 66 82 60 Respiratory Rate 18 Blood Pressure 117/79 Pulse Oximetry 96 11/18/18 06:00 11/18/18 08:00 Temperature 97.8 F Pulse Rate 67 77 Respiratory Rate 18 Blood Pressure 118/78 Pulse Oximetry 97 Intake & Output 11/17/18 11/18/18 11/18/18 18:59 06:59 18:59 Intake Total 1180 / 1180 530 / 530 50 / 50 Output Total 2250 / 2250 1500 / 1500 Balance -1070 / -1070 -970 / -970 50 / 50 Weight 74 kg Intake: IV 100 / 100 50 / 50 50 / 50 Azactam Inj 500 MG In NS Inj 50 100 / 100 50 / 50 50 / 50 ML @ 100 mls/hr IV.SIG Q8H [facility] Rx#:[id number] Oral 1080 / 1080 480 / 480 Output: Urine 2250 / 2250 1500 / 1500 Other: Date of Last Bowel Movement 11/13/18 11/15/18 # Bowel Movements 0 Narrative: GENERAL: NAD SKIN: Warm and dry. HEAD: Normocephalic. EYES: No scleral icterus. No injection or drainage. NECK: Supple, trachea midline. No JVD or lymphadenopathy. CARDIOVASCULAR: Regular rate and rhythm without murmurs, gallops, or rubs. RESPIRATORY: Breath sounds equal bilaterally. No accessory muscle use. GASTROINTESTINAL: Abdomen soft, non-tender, nondistended. MUSCULOSKELETAL: No cyanosis, or edema. BACK: Nontender without obvious deformity. No CVA tenderness. - Urinary Catheter Management Indwelling Urethral Catheter Cath placed during this visit: yes, but has since been removed by the nurse Reason for continuing: Not indwelling catheter Insertion date: 11/13/18 Insertion time: 16:00 Removal date: 11/13/18 Removal time: 15:50 Results - Labs CBC & Chem 7: 11/18/18 06:27 11/18/18 06:27 Laboratory Results - last 24 hr 11/15/18 11/18/18 11/18/18 08:37 06:27 06:27 WBC 8.1 RBC 4.35 L Hgb 13.7 Hct 40.3 MCV 92.6 MCH 31.5 MCHC 34.1 RDW 16.2 Plt Count 121 L MPV 10.4 Sodium 138 Potassium 3.9 Chloride 97 L Carbon Dioxide 30.9 Anion Gap 10 BUN 81 H Creatinine 3.60 H Estimated GFR 17 L Random Glucose 84 Calcium 8.1 L Total Bilirubin 2.6 H AST 82 H ALT 263 H Alkaline Phosphatase 197 H Total Protein 6.7 Albumin 3.0 L Albumin (PEP) 4.19 Albumin/Globulin Ratio 1.50 Pdave-1-Fsfevoqjg 0.26 Dvayz-0-[place] 0.68 Beta Globulins 0.64 Gamma Globulins 1.23 - Procedures None Assessment and Plan - Assessment (1) V-tach Code(s): I47.2 - Ventricular tachycardia Status: Acute (2) CHF (congestive heart failure) Code(s): I50.9 - Heart failure, unspecified Status: Acute (3) Chest pain Code(s): R07.9 - Chest pain, unspecified Status: Acute (4) Elevated troponin Code(s): R74.8 - Abnormal levels of other serum enzymes Status: Acute - Plan 78-year-old man with Paroxysmal atrial fibrillation flecainide has been discontinued 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 Appreciate assistance. Acute on chronic systolic CHF LASHAY 08/07/18 w/ EF 40-45%, +significant lower extremity/scrotal edema. Doppler LE negative for DVT. Scrotal US no significant findings. Continue w/ diuresis-caution w/ renal function, monitor I/O. Currently on Lasix Oliguric acute kidney injury on chronic kidney disease stage III. Renal indices improving Appreciate input from nephrology If no improvement, patient more likely will require HD Gross hematuria Resolved Appreciate input from urology DVT Prophylaxis: Bilateral SCDs PT to treat and eval Discharge when cleared by nephrology, cardiology
--- NOTE | 2018-11-18 17:24 | P.PNNP ---
Subjective Interval history: Patient is alert, no SOB, started eating better, urine is clear. Physical Exam Vital signs: Vital Signs 11/17/18 18:00 11/17/18 19:00 11/17/18 20:00 Temperature 98.2 F Pulse Rate 84 67 64 Respiratory Rate 18 Blood Pressure 115/57 L Pulse Oximetry 98 11/17/18 21:00 11/17/18 22:00 11/17/18 23:00 Temperature Pulse Rate 69 70 69 Respiratory Rate Blood Pressure Pulse Oximetry 11/18/18 00:00 11/18/18 01:00 11/18/18 02:00 Temperature 98.0 F Pulse Rate 82 77 60 Respiratory Rate 18 Blood Pressure 135/85 Pulse Oximetry 96 11/18/18 03:00 11/18/18 04:00 11/18/18 05:00 Temperature 97.7 F Pulse Rate 66 82 60 Respiratory Rate 18 Blood Pressure 117/79 Pulse Oximetry 96 11/18/18 06:00 11/18/18 07:00 11/18/18 08:00 Temperature 97.8 F Pulse Rate 67 83 72 Respiratory Rate 18 Blood Pressure 118/78 Pulse Oximetry 97 11/18/18 09:00 11/18/18 10:00 11/18/18 12:00 Temperature 97.9 F Pulse Rate 68 66 64 Respiratory Rate 18 Blood Pressure 124/87 Pulse Oximetry 96 11/18/18 16:00 Temperature 97.8 F Pulse Rate 71 Respiratory Rate 18 Blood Pressure 129/95 H Pulse Oximetry 98 Intake & Output 11/17/18 11/18/18 11/18/18 18:59 06:59 18:59 Intake Total 1180 / 1180 530 / 530 50 / 50 Output Total 2250 / 2250 1500 / 1500 Balance -1070 / -1070 -970 / -970 50 / 50 Weight 74 kg Intake: IV 100 / 100 50 / 50 50 / 50 Azactam Inj 500 MG In NS Inj 50 100 / 100 50 / 50 50 / 50 ML @ 100 mls/hr IV.SIG Q8H [facility] Rx#:[id number] Oral 1080 / 1080 480 / 480 Output: Urine 2250 / 2250 1500 / 1500 Other: Date of Last Bowel Movement 11/13/18 11/15/18 # Bowel Movements 0 Narrative: GENERAL: NAD SKIN: Warm and dry. HEAD: Normocephalic. EYES: No scleral icterus. No injection or drainage. NECK: Supple, trachea midline. No JVD or lymphadenopathy. CARDIOVASCULAR: Regular rate and rhythm without murmurs, gallops, or rubs. RESPIRATORY: Breath sounds equal bilaterally. No accessory muscle use. GASTROINTESTINAL: Abdomen soft, non-tender, nondistended. MUSCULOSKELETAL: No cyanosis, or edema. BACK: Nontender without obvious deformity. No CVA tenderness. 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 Creatinine 1.4 on admission Now creatinine continue to improve, now 3.6. Initial hyperkalemia improved Continues on lasix infusion UOP improving, Initial hematuria has resolved, no further intervention per . Blood pressure has been improving as well - BP 110s/80s today patient is tolerating PO liquids Watch for renal recovery. Avoid Nephrotoxins. Continue antibiotics. D/W the patient and at bed side. (2) Atrial fibrillation Code(s): I48.91 - Unspecified atrial fibrillation Status: Acute Plan: . NSR now, follow with cardiology (3) Anasarca Code(s): R60.1 - Generalized edema Status: Acute (4) CHF (congestive heart failure) Code(s): I50.9 - Heart failure, unspecified Status: Acute - Plan Patient seen and examined, agree with above. Patient has chronic kidney disease and single functioning kidney, now develop AALIYAH. Has most likely ATN due to Hypotension. Give NaHco3 and Kayexalate for high K. Lasix infusion. If not better, may need HD. D/W the patient and in detail and explained. Dr. Graham will cover for the weekend.
[2018-11-19 06:18] LABS: Hematocrit 41.1 % (39.0-51.0); Hemoglobin 13.6 gm/dL (13.0-17.0); Mean Corpuscular HGB Conc 33.1 % (32.0-36.0); Mean Corpuscular Hemoglobin 30.8 pg (27.0-34.0); Mean Corpuscular Volume 93.3 fL (80.0-100.0); Mean Platelet Volume 10.2 fL (7.0-11.0); Platelet Count 131 th/mm3 (150-450); Red Blood Count 4.41 mil/mm3 (4.50-5.90); Red Cell Distribution Width 16.2 % (11.6-17.2); White Blood Count 7.8 th/mm3 (4.0-11.0)
[2018-11-19 06:37] LABS: Albumin 2.9 g/dL (3.4-5.0); Anion Gap 9 meq/L (5-15); Aspartate Aminotransferase 59 U/L (15-37); Blood Urea Nitrogen 76 mg/dL (7-18); Calcium 8.6 mg/dL (8.5-10.1); Carbon Dioxide 31.7 meq/L (21.0-32.0); Chloride 99 meq/L (98-107); Glomerular Filtration Rate 21 mL/min (>89); Glucose,Random 80 mg/dL (74-106); Potassium 3.9 meq/L (3.5-5.1); Sodium 140 meq/L (136-145)
[2018-11-19 06:41] LABS: Alanine Aminotransferase 208 U/L (12-78); Alkaline Phosphatase 201 U/L (45-117); Total Protein 6.7 g/dL (6.4-8.2)
[2018-11-19] MEDS: AZTREONAM IV.SIG SCH ×2 (09:57→15:30)
[2018-11-19] MEDS: SODIUM CHLOR 0.9% IV.SIG SCH ×2 (09:57→15:30)
[2018-11-19] MEDS: Furosemide 20 MG Tablet PO SCH (09:58)
[2018-11-19] MEDS: Budesonide-Formoterol 160/4.5 MCG 6 GM Inhaler INH SCH ×2 (09:58→21:52)
--- NOTE | 2018-11-19 11:25 | P.PN ---
Subjective Interval history: Follow-up paroxysmal atrial fibrillation/acute kidney injury/hematuria November 15, 2018-patient seen and examined, currently denies any chest pain or shortness of breath. Gross hematuria improving. While by the bedside. Case discussed with cardiology November 16, 2018-patient seen and examined, gross hematuria resolved. States he has lost his voice overnight and complained of dry throat November 17, 2018-patient seen and examined, no chest pain or shortness of breath. Stable and no complaint. Afebrile November 18, 2018-patient seen and examined, remains stable with improvement of renal function. November 19, 2018-patient seen and examined, renal indices significant improvement. Patient complaining of dry cough otherwise stable. Denies any chest pain. Physical Exam Vital signs: Vital Signs 11/18/18 12:00 11/18/18 13:00 11/18/18 14:00 Temperature 97.9 F Pulse Rate 64 66 100 H Respiratory Rate 18 Blood Pressure 124/87 Pulse Oximetry 96 11/18/18 15:00 11/18/18 16:00 11/18/18 17:00 Temperature 97.8 F Pulse Rate 73 66 74 Respiratory Rate 18 Blood Pressure 129/95 H Pulse Oximetry 98 11/18/18 18:00 11/18/18 19:00 11/18/18 19:49 Temperature 97.7 F Pulse Rate 64 63 63 Respiratory Rate 17 Blood Pressure 132/95 H Pulse Oximetry 98 11/18/18 20:00 11/18/18 21:00 11/18/18 22:00 Temperature Pulse Rate 73 68 84 Respiratory Rate Blood Pressure Pulse Oximetry 11/18/18 23:00 11/19/18 00:00 11/19/18 01:00 Temperature 97.8 F Pulse Rate 66 65 68 Respiratory Rate 18 Blood Pressure 131/90 Pulse Oximetry 98 11/19/18 02:00 11/19/18 03:00 11/19/18 04:00 Temperature 98 F Pulse Rate 68 64 70 Respiratory Rate 16 Blood Pressure 121/84 Pulse Oximetry 97 11/19/18 05:00 11/19/18 06:00 11/19/18 07:00 Temperature Pulse Rate 68 62 66 Respiratory Rate Blood Pressure Pulse Oximetry 11/19/18 08:00 11/19/18 09:00 11/19/18 10:00 Temperature 97.6 F Pulse Rate 75 68 66 Respiratory Rate 16 Blood Pressure 125/88 Pulse Oximetry 97 11/19/18 10:57 Temperature Pulse Rate 70 Respiratory Rate Blood Pressure Pulse Oximetry Intake & Output 11/18/18 11/19/18 11/19/18 18:59 06:59 18:59 Intake Total 900 / 900 550 / 550 150 / 150 Output Total 1250 / 1250 1200 / 1200 Balance -350 / -350 -650 / -650 150 / 150 Weight 74 kg Intake: IV 100 / 100 50 / 50 150 / 150 Azactam Inj 500 MG In NS Inj 50 100 / 100 50 / 50 50 / 50 ML @ 100 mls/hr IV.SIG Q8H [facility] Rx#:[id number] Oral 800 / 800 500 / 500 Output: Urine 1250 / 1250 1200 / 1200 Other: Date of Last Bowel Movement 11/15/18 11/18/18 11/18/18 Narrative: GENERAL: NAD SKIN: Warm and dry. HEAD: Normocephalic. EYES: No scleral icterus. No injection or drainage. NECK: Supple, trachea midline. No JVD or lymphadenopathy. CARDIOVASCULAR: Regular rate and rhythm without murmurs, gallops, or rubs. RESPIRATORY: Breath sounds equal bilaterally. No accessory muscle use. GASTROINTESTINAL: Abdomen soft, non-tender, nondistended. MUSCULOSKELETAL: No cyanosis, or edema. BACK: Nontender without obvious deformity. No CVA tenderness. - Urinary Catheter Management Indwelling Urethral Catheter Cath placed during this visit: yes, but has since been removed by the nurse Reason for continuing: Not indwelling catheter Insertion date: 11/13/18 Insertion time: 16:00 Removal date: 11/13/18 Removal time: 15:50 Results - Labs CBC & Chem 7: 11/19/18 05:03 11/19/18 05:03 Laboratory Results - last 24 hr 11/19/18 11/19/18 05:03 05:03 WBC 7.8 RBC 4.41 L Hgb 13.6 Hct 41.1 MCV 93.3 MCH 30.8 MCHC 33.1 RDW 16.2 Plt Count 131 L MPV 10.2 Sodium 140 Potassium 3.9 Chloride 99 Carbon Dioxide 31.7 Anion Gap 9 BUN 76 H Creatinine 2.96 H Estimated GFR 21 L Random Glucose 80 Calcium 8.6 Total Bilirubin 2.4 H AST 59 H ALT 208 H Alkaline Phosphatase 201 H Total Protein 6.7 Albumin 2.9 L - Procedures None Assessment and Plan - Assessment (1) V-tach Code(s): I47.2 - Ventricular tachycardia Status: Acute (2) CHF (congestive heart failure) Code(s): I50.9 - Heart failure, unspecified Status: Acute (3) Chest pain Code(s): R07.9 - Chest pain, unspecified Status: Acute (4) Elevated troponin Code(s): R74.8 - Abnormal levels of other serum enzymes Status: Acute - Plan 78-year-old man with Paroxysmal atrial fibrillation flecainide 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 Appreciate assistance. Acute on chronic systolic CHF LASHAY 08/07/18 w/ EF 40-45%, +significant lower extremity/scrotal edema. Doppler LE negative for DVT. Scrotal US no significant findings. Continue w/ diuresis-caution w/ renal function, monitor I/O. Currently on Lasix PO Oliguric acute kidney injury on chronic kidney disease stage III. Renal indices improving with BUN/Cr 76/2.96 (11/19) Appreciate input from nephrology If no improvement, patient more likely will require HD Gross hematuria Resolved Appreciate input from urology DVT Prophylaxis: Bilateral SCDs PT to treat and eval Discharge when cleared by nephrology, cardiology
--- NOTE | 2018-11-19 12:17 | P.PNNP ---
Subjective Interval history: Patient is alert, no SOB, started eating better. Physical Exam Vital signs: Vital Signs 11/18/18 13:00 11/18/18 14:00 11/18/18 15:00 Temperature Pulse Rate 66 100 H 73 Respiratory Rate Blood Pressure Pulse Oximetry 11/18/18 16:00 11/18/18 17:00 11/18/18 18:00 Temperature 97.8 F Pulse Rate 66 74 64 Respiratory Rate 18 Blood Pressure 129/95 H Pulse Oximetry 98 11/18/18 19:00 11/18/18 19:49 11/18/18 20:00 Temperature 97.7 F Pulse Rate 63 63 73 Respiratory Rate 17 Blood Pressure 132/95 H Pulse Oximetry 98 11/18/18 21:00 11/18/18 22:00 11/18/18 23:00 Temperature Pulse Rate 68 84 66 Respiratory Rate Blood Pressure Pulse Oximetry 11/19/18 00:00 11/19/18 01:00 11/19/18 02:00 Temperature 97.8 F Pulse Rate 65 68 68 Respiratory Rate 18 Blood Pressure 131/90 Pulse Oximetry 98 11/19/18 03:00 11/19/18 04:00 11/19/18 05:00 Temperature 98 F Pulse Rate 64 70 68 Respiratory Rate 16 Blood Pressure 121/84 Pulse Oximetry 97 11/19/18 06:00 11/19/18 07:00 11/19/18 08:00 Temperature 97.6 F Pulse Rate 62 66 75 Respiratory Rate 16 Blood Pressure 125/88 Pulse Oximetry 97 11/19/18 09:00 11/19/18 10:00 11/19/18 10:57 Temperature Pulse Rate 68 66 70 Respiratory Rate Blood Pressure Pulse Oximetry 11/19/18 12:00 Temperature 98.2 F Pulse Rate 66 Respiratory Rate 18 Blood Pressure 129/88 Pulse Oximetry 99 Intake & Output 11/18/18 11/19/18 11/19/18 18:59 06:59 18:59 Intake Total 900 / 900 550 / 550 150 / 150 Output Total 1250 / 1250 1200 / 1200 Balance -350 / -350 -650 / -650 150 / 150 Weight 74 kg Intake: IV 100 / 100 50 / 50 150 / 150 Azactam Inj 500 MG In NS Inj 50 100 / 100 50 / 50 50 / 50 ML @ 100 mls/hr IV.SIG Q8H [facility] Rx#:[id number] Oral 800 / 800 500 / 500 Output: Urine 1250 / 1250 1200 / 1200 Other: Date of Last Bowel Movement 11/15/18 11/18/18 11/18/18 Narrative: GENERAL: NAD SKIN: Warm and dry. HEAD: Normocephalic. EYES: No scleral icterus. No injection or drainage. NECK: Supple, trachea midline. No JVD or lymphadenopathy. CARDIOVASCULAR: Regular rate and rhythm without murmurs, gallops, or rubs. RESPIRATORY: Breath sounds equal bilaterally. No accessory muscle use. GASTROINTESTINAL: Abdomen soft, non-tender, nondistended. MUSCULOSKELETAL: No cyanosis, or edema. BACK: Nontender without obvious deformity. No CVA tenderness. 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 Creatinine 1.4 on admission Now creatinine continue to improve, now it is 2.9. Initial hyperkalemia improved Continues on Lasix daily. UOP improving, Initial hematuria has resolved, no further intervention per . Blood pressure has been stable. patient is tolerating PO liquids Watch for renal recovery. Avoid Nephrotoxins. Continue antibiotics. If Creatinine continue to improve, can be discharged tomorrow. (2) Atrial fibrillation Code(s): I48.91 - Unspecified atrial fibrillation Status: Acute Plan: . NSR now, follow with cardiology (3) Anasarca Code(s): R60.1 - Generalized edema Status: Acute (4) CHF (congestive heart failure) Code(s): I50.9 - Heart failure, unspecified Status: Acute - Plan Patient seen and examined, agree with above. Patient has chronic kidney disease and single functioning kidney, now develop AALIYAH. Has most likely ATN due to Hypotension. Give NaHco3 and Kayexalate for high K. Lasix infusion. If not better, may need HD. D/W the patient and in detail and explained. Dr. Graham will cover for the weekend.
[2018-11-19] MEDS ORDERED: Dextrose 50% in Water 50 ML Vial IV.PUSH PRN (12:21)
[2018-11-19] MEDS: Insulin NovoLOG Aspart Correctional Sugar Inj SQ SCH ×2 (16:12→21:51)
--- NOTE | 2018-11-19 19:00 | P.PNCA ---
Subjective Interval history: No events overnight Continues in sinus rhythm No hematuria Medications and Allergies Active Medications: Active Medications Acetaminophen (Tylenol) 650 mg PO Q4H PRN PRN Reason: Temp > 100.4 Al Hydroxide/Mg Hydroxide (Milk Of Annabelle Sanches) 30 ml PO Q12H PRN PRN Reason: Mild Constipation Apixaban (Eliquis) 5 mg PO BID [facility] Last Admin: 11/19/18 09:58 Dose: 5 mg Budesonide/Formoterol Fumarate (Symbicort 160/4.5 Mcg Inh) 2 puff INH BID [facility] Last Admin: 11/19/18 09:58 Dose: Not Given Dextrose (D50w Vial) 50 ml IV.PUSH UNSCH PRN PRN Reason: PER HYPOGLYCEMIA PROTOCOL Furosemide (Lasix) 20 mg PO DAILY [facility] Last Admin: 11/19/18 09:58 Dose: 20 mg Glucagon (Glucagon Inj) 1 mg OTHER PRN PRN PRN Reason: for Hypoglycemia Protocol Furosemide 100 mg/ Sodium (Chloride) 100 mls @ 10 mls/hr IV.CONT .Q10H [facility] Last Infusion: 11/19/18 07:21 Dose: Infused Aztreonam 500 mg/ Sodium (Chloride) 50 mls @ 100 mls/hr IV.SIG Q8H [facility] Last Infusion: 11/19/18 16:01 Dose: Infused Insulin Aspart (Novolog Insulin Correctional Sugar Inj) 0 unit SQ ACHS [facility]; Protocol Last Admin: 11/19/18 16:12 Dose: Not Given Menthol (Williams) 1 lozenge BUCCAL Q1H PRN PRN Reason: SORE THROAT Morphine Sulfate (Morphine Inj) 2 mg IV.PUSH Q4H PRN PRN Reason: PAIN 6-10 Last Admin: 11/17/18 08:22 Dose: 2 mg Nitroglycerin (Nitro-Bid 2% Oint) 0.5 inch TOPICAL Q6HR PRN PRN Reason: CHEST PAIN Ondansetron HCl (Zofran Inj) 4 mg IV.PUSH Q6H PRN PRN Reason: NAUSEA OR VOMITING Sodium Chloride (Ns Flush) 2 ml IV.FLUSH BID [facility] Last Admin: 11/19/18 09:58 Dose: 2 ml Sodium Chloride (Ns Flush) 2 ml IV.FLUSH PRN PRN PRN Reason: FLUSH AFTER USING IV ACCESS Tamsulosin HCl (Flomax) 0.4 mg PO DAILY [facility] Last Admin: 11/19/18 09:57 Dose: 0.4 mg Allergies Allergy/AdvReac Type Severity Reaction Status Date / Time Penicillins Allergy Intermediate Rash Verified 11/09/18 15:07 Home Medications Medication Instructions Recorded Confirmed Type allopurinol 100 mg PO DAILY 08/07/18 11/09/18 History apixaban [Eliquis] 5 mg PO BID 08/07/18 11/09/18 History budesonide-formoterol [Symbicort] 2 puff INHALATION BID 08/07/18 11/09/18 History furosemide [Lasix] 20 mg PO DAILY PRN 08/07/18 11/09/18 History lisinopril 20 mg PO DAILY 08/07/18 11/09/18 History potassium chloride 10 meq PO DAILY PRN 08/07/18 11/09/18 History tamsulosin 0.4 mg PO DAILY 08/07/18 11/09/18 History Physical Exam Vital signs: Vital Signs 11/18/18 19:00 11/18/18 19:49 11/18/18 20:00 Temperature 97.7 F Pulse Rate 63 63 73 Respiratory Rate 17 Blood Pressure 132/95 H Pulse Oximetry 98 11/18/18 21:00 11/18/18 22:00 11/18/18 23:00 Temperature Pulse Rate 68 84 66 Respiratory Rate Blood Pressure Pulse Oximetry 11/19/18 00:00 11/19/18 01:00 11/19/18 02:00 Temperature 97.8 F Pulse Rate 65 68 68 Respiratory Rate 18 Blood Pressure 131/90 Pulse Oximetry 98 11/19/18 03:00 11/19/18 04:00 11/19/18 05:00 Temperature 98 F Pulse Rate 64 70 68 Respiratory Rate 16 Blood Pressure 121/84 Pulse Oximetry 97 11/19/18 06:00 11/19/18 07:00 11/19/18 08:00 Temperature 97.6 F Pulse Rate 62 66 75 Respiratory Rate 16 Blood Pressure 125/88 Pulse Oximetry 97 11/19/18 09:00 11/19/18 10:00 11/19/18 10:57 Temperature Pulse Rate 68 66 70 Respiratory Rate Blood Pressure Pulse Oximetry 11/19/18 12:00 11/19/18 12:22 11/19/18 14:00 Temperature 98.2 F Pulse Rate 64 62 78 Respiratory Rate 18 Blood Pressure 129/88 Pulse Oximetry 99 11/19/18 14:39 11/19/18 16:00 11/19/18 17:00 Temperature 97.4 F L Pulse Rate 68 64 79 Respiratory Rate 16 Blood Pressure 116/81 Pulse Oximetry 96 11/19/18 17:18 Temperature Pulse Rate 78 Respiratory Rate Blood Pressure Pulse Oximetry Intake & Output 11/18/18 11/19/18 11/19/18 18:59 06:59 18:59 Intake Total 900 / 900 550 / 550 960 / 960 Output Total 1250 / 1250 1200 / 1200 1095 / 1095 Balance -350 / -350 -650 / -650 -135 / -135 Weight 74 kg Intake: IV 100 / 100 50 / 50 200 / 200 Azactam Inj 500 MG In NS Inj 50 100 / 100 50 / 50 100 / 100 ML @ 100 mls/hr IV.SIG Q8H [facility] Rx#:[id number] Oral 800 / 800 500 / 500 760 / 760 Output: Urine 1250 / 1250 1200 / 1200 1095 / 1095 Other: Date of Last Bowel Movement 11/15/18 11/18/18 11/19/18 # Bowel Movements 2 Narrative: GENERAL: NAD SKIN: Warm and dry. HEAD: Normocephalic. EYES: No scleral icterus. No injection or drainage. NECK: Supple, trachea midline. No JVD or lymphadenopathy. CARDIOVASCULAR: Regular rate and rhythm without murmurs, gallops, or rubs. RESPIRATORY: Breath sounds equal bilaterally. No accessory muscle use. GASTROINTESTINAL: Abdomen soft, non-tender, nondistended. MUSCULOSKELETAL: No cyanosis, or edema. BACK: Nontender without obvious deformity. No CVA tenderness. - Urinary Catheter Management Indwelling Urethral Catheter Cath placed during this visit: yes, but has since been removed by the nurse Reason for continuing: Not indwelling catheter Insertion date: 11/13/18 Insertion time: 16:00 Removal date: 11/13/18 Removal time: 15:50 Results 11/19/18 05:03 11/19/18 05:03 Cardiac Enzymes 11/18/18 11/19/18 Range/Units 06:27 05:03 AST 82 H 59 H (15-37) U/L CBC 11/18/18 11/19/18 Range/Units 06:27 05:03 WBC 8.1 7.8 (4.0-11.0) th/mm3 RBC 4.35 L 4.41 L (4.50-5.90) mil/mm3 Hgb 13.7 13.6 (13.0-17.0) gm/dL Hct 40.3 41.1 (39.0-51.0) % Plt Count 121 L 131 L (150-450) th/mm3 Comprehensive Metabolic Panel 11/18/18 11/19/18 Range/Units 06:27 05:03 Sodium 138 140 (136-145) meq/L Potassium 3.9 3.9 (3.5-5.1) meq/L Chloride 97 L 99 (98-107) meq/L Carbon Dioxide 30.9 31.7 (21.0-32.0) meq/L BUN 81 H 76 H (7-18) mg/dL Creatinine 3.60 H 2.96 H (0.60-1.30) mg/dL Calcium 8.1 L 8.6 (8.5-10.1) mg/dL AST 82 H 59 H (15-37) U/L ALT 263 H 208 H (12-78) U/L Alkaline Phosphatase 197 H 201 H (45-117) U/L Total Protein 6.7 6.7 (6.4-8.2) g/dL Albumin 3.0 L 2.9 L (3.4-5.0) g/dL Intake and Output 11/19/18 11/19/18 11/19/18 06:59 14:59 22:59 Intake Total 550 / 550 150 / 150 810 / 810 Output Total 1200 / 1200 1095 / 1095 Balance -650 / -650 150 / 150 -285 / -285 Intake: IV 50 / 50 150 / 150 50 / 50 Azactam Inj 500 MG In NS Inj 50 50 / 50 50 / 50 50 / 50 ML @ 100 mls/hr IV.SIG Q8H [facility] Rx#:[id number] Oral 500 / 500 760 / 760 Output: Urine 1200 / 1200 1095 / 1095 Other: Date of Last Bowel Movement 11/18/18 11/18/18 11/19/18 # Bowel Movements 2 Weight 74 kg Assessment and Plan - Assessment (1) Atrial fibrillation Code(s): I48.91 - Unspecified atrial fibrillation Status: Acute - Plan 1) AFib Flecainide stopped due to AALIYAH on CKD No AV warren blockers at this time If needed, would place on Cardizem Eliquis restarted No hematuria 2) Elevated trop Minimal elevation, flat Most likely secondary to RVR No further work up 3) AALIYAH on CKD Nephrology following Currently on Lasix Creatinine decreasing 4) No further cardiovascular work up necessary Will see PRN, call with questions
[2018-11-20] MEDS: AZTREONAM IV.SIG SCH ×2 (00:30→08:54)
[2018-11-20] MEDS: SODIUM CHLOR 0.9% IV.SIG SCH ×2 (00:30→08:54)
[2018-11-20 06:41] LABS: Hemoglobin 13.7 gm/dL (13.0-17.0); Mean Corpuscular HGB Conc 33.3 % (32.0-36.0); Mean Corpuscular Hemoglobin 30.9 pg (27.0-34.0); Mean Corpuscular Volume 92.8 fL (80.0-100.0); Mean Platelet Volume 10.4 fL (7.0-11.0); Platelet Count 126 th/mm3 (150-450); Red Blood Count 4.43 mil/mm3 (4.50-5.90); Red Cell Distribution Width 15.9 % (11.6-17.2); White Blood Count 7.7 th/mm3 (4.0-11.0)
[2018-11-20 07:02] LABS: Alanine Aminotransferase 166 U/L (12-78); Albumin 2.9 g/dL (3.4-5.0); Alkaline Phosphatase 197 U/L (45-117); Anion Gap 8 meq/L (5-15); Aspartate Aminotransferase 37 U/L (15-37); Blood Urea Nitrogen 65 mg/dL (7-18); Calcium 8.8 mg/dL (8.5-10.1); Carbon Dioxide 31.2 meq/L (21.0-32.0); Chloride 102 meq/L (98-107); Glomerular Filtration Rate 27 mL/min (>89); Glucose,Random 82 mg/dL (74-106); Potassium 4.1 meq/L (3.5-5.1); Sodium 141 meq/L (136-145); Total Protein 6.6 g/dL (6.4-8.2)
[2018-11-20] MEDS: Furosemide 20 MG Tablet PO SCH (08:54)
[2018-11-20] MEDS: Insulin NovoLOG Aspart Correctional Sugar Inj SQ SCH (08:54)
[2018-11-20] MEDS: Budesonide-Formoterol 160/4.5 MCG 6 GM Inhaler INH SCH (08:55)
[2018-11-20 09:57] VITALS: BP 130/83; RESP 16; TEMP 97.8; O2SAT 97
[2018-11-20 10:10] VITALS: PULSE 70
--- NOTE | 2018-11-20 12:16 | P.PN ---
Subjective Interval history: Follow-up paroxysmal atrial fibrillation/acute kidney injury/hematuria November 15, 2018-patient seen and examined, currently denies any chest pain or shortness of breath. Gross hematuria improving. While by the bedside. Case discussed with cardiology November 16, 2018-patient seen and examined, gross hematuria resolved. States he has lost his voice overnight and complained of dry throat November 17, 2018-patient seen and examined, no chest pain or shortness of breath. Stable and no complaint. Afebrile November 18, 2018-patient seen and examined, remains stable with improvement of renal function. November 19, 2018-patient seen and examined, renal indices significant improvement. Patient complaining of dry cough otherwise stable. Denies any chest pain. November 20, 2018-patient seen and examined, stable, significant improvement of renal indices. No chest pain or shortness of breath. Physical Exam Vital signs: Vital Signs 11/19/18 12:22 11/19/18 14:00 11/19/18 14:39 Temperature Pulse Rate 62 78 68 Respiratory Rate Blood Pressure Pulse Oximetry 11/19/18 16:00 11/19/18 17:00 11/19/18 17:18 Temperature 97.4 F L Pulse Rate 64 79 78 Respiratory Rate 16 Blood Pressure 116/81 Pulse Oximetry 96 11/19/18 19:00 11/19/18 20:00 11/19/18 21:00 Temperature 97.9 F Pulse Rate 75 69 69 Respiratory Rate 17 Blood Pressure 140/100 H Pulse Oximetry 94 L 11/19/18 22:00 11/19/18 23:00 11/20/18 00:00 Temperature 97.8 F Pulse Rate 64 67 72 Respiratory Rate 17 Blood Pressure 179/89 H Pulse Oximetry 95 11/20/18 01:00 11/20/18 03:00 11/20/18 04:00 Temperature 98.8 F Pulse Rate 80 67 74 Respiratory Rate 18 Blood Pressure 128/98 H Pulse Oximetry 95 11/20/18 05:00 11/20/18 07:00 11/20/18 08:00 Temperature 97.8 F Pulse Rate 70 66 64 Respiratory Rate 16 Blood Pressure 130/83 Pulse Oximetry 97 11/20/18 09:00 11/20/18 10:00 11/20/18 10:09 Temperature Pulse Rate 70 68 70 Respiratory Rate Blood Pressure Pulse Oximetry Intake & Output 1211/20/18 11/20/18 18:59 06:59 18:59 Intake Total 960 / 960 380 / 380 50 / 50 Output Total 1095 / 1095 525 / 525 Balance -135 / -135 -145 / -145 50 / 50 Weight 74 kg Intake: IV 200 / 200 50 / 50 50 / 50 Azactam Inj 500 MG In NS Inj 50 100 / 100 50 / 50 50 / 50 ML @ 100 mls/hr IV.SIG Q8H [facility] Rx#:[id number] Oral 760 / 760 330 / 330 Output: Urine 1095 / 1095 525 / 525 Other: Date of Last Bowel Movement 11/19/18 # Bowel Movements 2 Narrative: GENERAL: NAD SKIN: Warm and dry. HEAD: Normocephalic. EYES: No scleral icterus. No injection or drainage. NECK: Supple, trachea midline. No JVD or lymphadenopathy. CARDIOVASCULAR: Regular rate and rhythm without murmurs, gallops, or rubs. RESPIRATORY: Breath sounds equal bilaterally. No accessory muscle use. GASTROINTESTINAL: Abdomen soft, non-tender, nondistended. MUSCULOSKELETAL: No cyanosis, or edema. BACK: Nontender without obvious deformity. No CVA tenderness. - Urinary Catheter Management Indwelling Urethral Catheter Cath placed during this visit: yes, but has since been removed by the nurse Reason for continuing: Not indwelling catheter Insertion date: 11/13/18 Insertion time: 16:00 Removal date: 11/13/18 Removal time: 15:50 Results - Labs CBC & Chem 7: 11/20/18 05:20 11/20/18 05:20 Laboratory Results - last 24 hr 11/15/18 11/15/18 11/19/18 08:37 08:37 16:10 WBC RBC Hgb Hct MCV MCH MCHC RDW Plt Count MPV Sodium Potassium Chloride Carbon Dioxide Anion Gap BUN Creatinine Estimated GFR POC Glucose 104 Random Glucose Calcium Total Bilirubin AST ALT Alkaline Phosphatase Total Protein Albumin PEP Pathologist Comment Anti-Proteinase 3 Less than 1.0 Anti-Myeloperoxidase Less than 1.0 11/19/18 11/20/18 11/20/18 21:51 05:20 05:20 WBC 7.7 RBC 4.43 L Hgb 13.7 Hct 41.0 MCV 92.8 MCH 30.9 MCHC 33.3 RDW 15.9 Plt Count 126 L MPV 10.4 Sodium 141 Potassium 4.1 Chloride 102 Carbon Dioxide 31.2 Anion Gap 8 BUN 65 H Creatinine 2.37 H Estimated GFR 27 L POC Glucose 106 Random Glucose 82 Calcium 8.8 Total Bilirubin 2.4 H AST 37 ALT 166 H Alkaline Phosphatase 197 H Total Protein 6.6 Albumin 2.9 L PEP Pathologist Comment Anti-Proteinase 3 Anti-Myeloperoxidase - Procedures None Assessment and Plan - Assessment (1) V-tach Code(s): I47.2 - Ventricular tachycardia Status: Acute (2) CHF (congestive heart failure) Code(s): I50.9 - Heart failure, unspecified Status: Acute (3) Chest pain Code(s): R07.9 - Chest pain, unspecified Status: Acute (4) Elevated troponin Code(s): R74.8 - Abnormal levels of other serum enzymes Status: Acute - Plan 78-year-old man with Paroxysmal atrial fibrillation flecainide has been discontinued by adjunct history instructor Continue NTP Consider Cardizem for rate control Continue Eliquis Elevated Trop Cardiology following. Appreciate assistance. Acute on chronic systolic CHF LASHAY 08/07/18 w/ EF 40-45%, +significant lower extremity/scrotal edema. Doppler LE negative for DVT. Scrotal US no significant findings. Continue w/ diuresis-caution w/ renal function, monitor I/O. Currently on Lasix PO Oliguric acute kidney injury on chronic kidney disease stage III. Renal indices improving significantly Appreciate input from nephrology Gross hematuria Resolved Appreciate input from urology DVT Prophylaxis: Bilateral SCDs PT to treat and eval
--- NOTE | 2018-11-20 12:17 | P.DS ---
Date of admission: 11/09/18 20:10 Primary care physician: Ailyn Quarles MD Brief History from admission: This is a 78-year-old male with a PMH of HTN, Hyperlipidemia, A. fib on Eliquis , CHF (LASHAY 08/07/18 w/ EF 40-45%) and h/o Colon CA who was brought to the ER for chest pain, SOB and lower extremity/scrotal edema x3 days. States symptoms started few weeks ago, but have gotten progressively worse. Follows w/ Dr. Omalley and Dr. Shin as outpatient, s/p ablation 07/[address] Shin. States he's been doing well until now. Chest pain is intermittent, described as a "tinge", worse w/ exertion/bending down. On arrival, BP 134/90, HR 89, O2 sat 99% on RA , Afebrile. CBC unremarkable except for platelets 123. Creatinine 1.47, previously 1.31 on 08/07/2018. Troponin 0 0.23. BNP 508. CXR moderate cardiomegaly. Significant lower extremity and scrotal edema on exam. While in ER, pt w/ c/o palpitations, noted to have 15 beat run of V. tach, resolved spontaneously. S/p Lasix IV. DS: Diagnosis - Discharge Diagnosis (1) V-tach Status: Acute (2) CHF (congestive heart failure) Status: Acute (3) Chest pain Status: Acute (4) Elevated troponin Status: Acute DS: Summary Hospital Course: While in hospital, patient was treated for: Paroxysmal atrial fibrillation flecainide has been discontinued by milieu manager Treated with NTP. Initially Eliquis was on hold secondary to hematuria, however this was resumed when hematuria resolved. Consider Cardizem for rate control Elevated Trop Cardiology following. Appreciate assistance. Acute on chronic systolic CHF LASHAY 08/07/18 w/ EF 40-45%, +significant lower extremity/scrotal edema. Doppler LE negative for DVT. Scrotal US no significant findings. Continue w/ diuresis-caution w/ renal function, monitor I/O. She was initially started on Lasix drip, however was transitioned to p.o. Lasix with monitoring of I's and O's. Oliguric acute kidney injury on chronic kidney disease stage III. Renal indices improved significantly Appreciate input from nephrology All electrode abnormalities were corrected accordingly. Gross hematuria Resolved Appreciate input from urology DVT Prophylaxis: Bilateral SCDs PT to treat and orquidea - Time Spent with Patient Total time spent providing and/or coordinating discharge services: Less than 30 minutes - Quality: VTE Deep Vein Thrombosis/Pulmonary Embolism Present on Admission: No Exam Vital signs: Vital Signs 11/19/18 12:22 11/19/18 14:00 11/19/18 14:39 Temperature Pulse Rate 62 78 68 Respiratory Rate Blood Pressure Pulse Oximetry 11/19/18 16:00 11/19/18 17:00 11/19/18 17:18 Temperature 97.4 F L Pulse Rate 64 79 78 Respiratory Rate 16 Blood Pressure 116/81 Pulse Oximetry 96 11/19/18 19:00 11/19/18 20:00 11/19/18 21:00 Temperature 97.9 F Pulse Rate 75 69 69 Respiratory Rate 17 Blood Pressure 140/100 H Pulse Oximetry 94 L 11/19/18 22:00 11/19/18 23:00 11/20/18 00:00 Temperature 97.8 F Pulse Rate 64 67 72 Respiratory Rate 17 Blood Pressure 179/89 H Pulse Oximetry 95 11/20/18 01:00 11/20/18 03:00 11/20/18 04:00 Temperature 98.8 F Pulse Rate 80 67 74 Respiratory Rate 18 Blood Pressure 128/98 H Pulse Oximetry 95 11/20/18 05:00 11/20/18 07:00 11/20/18 08:00 Temperature 97.8 F Pulse Rate 70 66 64 Respiratory Rate 16 Blood Pressure 130/83 Pulse Oximetry 97 11/20/18 09:00 11/20/18 10:00 11/20/18 10:09 Temperature Pulse Rate 70 68 70 Respiratory Rate Blood Pressure Pulse Oximetry Intake & Output 11/19/18 11/20/18 11/20/18 18:59 06:59 18:59 Intake Total 960 / 960 380 / 380 50 / 50 Output Total 1095 / 1095 525 / 525 Balance -135 / -135 -145 / -145 50 / 50 Weight 74 kg Intake: IV 200 / 200 50 / 50 50 / 50 Azactam Inj 500 MG In NS Inj 50 100 / 100 50 / 50 50 / 50 ML @ 100 mls/hr IV.SIG Q8H [facility] Rx#:[id number] Oral 760 / 760 330 / 330 Output: Urine 1095 / 1095 525 / 525 Other: Date of Last Bowel Movement 11/19/18 # Bowel Movements 2 Narrative: GENERAL: NAD SKIN: Warm and dry. HEAD: Normocephalic. EYES: No scleral icterus. No injection or drainage. NECK: Supple, trachea midline. No JVD or lymphadenopathy. CARDIOVASCULAR: Regular rate and rhythm without murmurs, gallops, or rubs. RESPIRATORY: Breath sounds equal bilaterally. No accessory muscle use. GASTROINTESTINAL: Abdomen soft, non-tender, nondistended. MUSCULOSKELETAL: No cyanosis, or edema. BACK: Nontender without obvious deformity. No CVA tenderness. Results Procedures completed during hospitalization: None Labs on day of discharge: Labs from last 24 hours 11/20/18 11/20/18 11/19/18 05:20 05:20 21:51 WBC 7.7 RBC 4.43 L Hgb 13.7 Hct 41.0 MCV 92.8 MCH 30.9 MCHC 33.3 RDW 15.9 Plt Count 126 L MPV 10.4 Sodium 141 Potassium 4.1 Chloride 102 Carbon Dioxide 31.2 Anion Gap 8 BUN 65 H Creatinine 2.37 H Estimated GFR 27 L POC Glucose 106 Random Glucose 82 Calcium 8.8 Total Bilirubin 2.4 H AST 37 ALT 166 H Alkaline Phosphatase 197 H Total Protein 6.6 Albumin 2.9 L PEP Pathologist Comment Anti-Proteinase 3 Anti-Myeloperoxidase 11/19/18 11/15/18 11/15/18 16:10 08:37 08:37 WBC RBC Hgb Hct MCV MCH MCHC RDW Plt Count MPV Sodium Potassium Chloride Carbon Dioxide Anion Gap BUN Creatinine Estimated GFR POC Glucose 104 Random Glucose Calcium Total Bilirubin AST ALT Alkaline Phosphatase Total Protein Albumin PEP Pathologist Comment Anti-Proteinase 3 Less than 1.0 Anti-Myeloperoxidase Less than 1.0 - Impressions ITS Impressions Abdomen/Pelvis CT 11/09/18 15:25 CONCLUSION: 1. Increasing size of the ascites since the prior examination with haziness of the mesentery particularly left side not present previously could be due to passive congestion, however peritoneal carcinomatosis should be excluded. 2. Nonfunctioning left kidney and dilated right renal pelvis chronic in nature and not changed. Scrotum Ultrasound 11/09/18 15:25 CONCLUSION: 1. Small bilateral hydroceles and there is epididymal head cyst on the right. Venous Doppler Study 11/09/18 15:28 CONCLUSION: 1. The study is negative for bilateral lower extremity deep venous thrombosis. Chest X-Ray 11/09/18 19:45 CONCLUSION: Moderate cardiomegaly. Abdomen/Bladder Ultrasound 11/13/18 00:00 CONCLUSION: 1. Stable chronic severe left hydronephrosis from uncertain etiology. There is essentially no remaining left renal tissue present likely due to long-standing chronic obstruction. 2. Stable cystic lesion versus dilated lower pole collecting system in the upper right kidney. This could represent a large renal sinus cyst or obstructed lower pole collecting system. There is no obstruction in the upper pole collecting system. 3. Small volume of free fluid is present within the abdomen and pelvis. Gallbladder Ultrasound 11/14/18 00:00 CONCLUSION: 1. Ascites with small nodular liver 2. Trace hydronephrosis on the right Discharge Plan - Discharge Disposition Patient Disposition: 01 Discharge Home - Discharge Condition Condition: Fair - Discharge Order Discharge Orders: Discharge Order (Routine); Ordered 11/20/18 Ordered By: Raghav Soto - Physicians Team Primary Care Provider: Ailyn Quarles Attending Provider: Raghav Soto Other Providers: Shan Shin MD ; Dawn Sharma MD ; Hema Street MD
== END 2018-11-20 11:12 | disposition home or self-care (01) | DRG 291 ==
LOC: NEPE 14:43 → NEDA 20:10 → HCIS 21:40
PROVIDERS: ADMIT Hospitalist; ATTEND Hospitalist
CPT/HCPCS: 71010; 71045; 74177; 76705; 76775; 76870; 80048; 80053; 80069; 80076; 81001; 82247; 82248; 82550; 82570; 82948; 82962; 83520; 83735; 83880; 83935; 84165; 84300; 84484; 85025; 85027; 86021; 86038; 93005; 93970; 93975; 97110; 97162; 97530; 99285; J1940; J2270; J7030; J7050; Q9967